=== PATIENT | female | born 1965 | race Caucasian/White ===

== ENCOUNTER 2019-02-14 12:46 | Emergency (ER) | payer MEDICARE | END 2019-02-14 15:00 | disposition short-term general hospital (02) | LOC: ED 12:46 ==

== ENCOUNTER 2023-08-10 23:51 | Observation (INO) | payer MEDICARE ==
[2023-08-11 00:23] LABS: VBG BASE EXCESS 2.1 (-2.0-2.0); VBG CARBOXYHEMOGLOBIN 2.3 % T HGB (0.0-6.9); VBG HCO3- 25.3 meq/L (22-28); VBG HEMOGLOBIN 13.3; VBG O2 SATURATION 43.6 (95-100); VBG POTASSIUM 5.2 (3.5-5.1); VBG pH 7.48 (7.32-7.42)
[2023-08-11] MEDS ORDERED: Sodium Chloride 0.9% 1000 ML 1,000 ML ONE ×2 (00:25→01:27)
[2023-08-11 00:29] LABS: Absolute Neutrophil Ct (ANC) 2.75 x10^3/uL (1.4-6.9); BASOPHIL % 1.1 % (0.0-0.4); Basophil (Absolute #) 0.05 x10^3/uL (0-0.4); Eosinophil % 0.4 % (0.00-5.0); Eosinophil (Absolute #) 0.02 x10^3/uL (0-0.5); Hematocrit 38.1 % (35-47); Hemoglobin 12.7 g/dL (12.0-16.0); IMMATURE GRAN # 0.02 x10^3u/L (0.00-0.03); IMMATURE GRAN % 0.4 % (0.00-0.4); Lymphocyte (Absolute #) 1.39 x10^3/uL (1.0-4.6); Mean Cell Volume 99.5 fL (78-100); Mean Corpuscular Hemoglobin 33.2 pg (26-32); Mean Corpuscular Hgb Concent. 33.3 g/dL (32-36); Mean Platelet Volume 11.5 fL (7.5-11.0); Monocyte (Absolute #) 0.25 x10^3/uL (0.0-1.3); Monocytes % 5.6 % (0.0-12.0); Neutrophil % 61.5 % (36.0-66.0); Platelet Count 128 x10^3/uL (150-450); Red Blood Count 3.83 x10^6/uL (4.1-5.4); Red Cell Distribution Width 12.6 % (11.5-14.0); White Blood Count 4.5 x10^3/uL (4.0-10.5)
[2023-08-11] MEDS: Sodium Chloride 0.9% 1000 ML 1,000 ML IV STA (00:35)
[2023-08-11 00:40] LABS: ALBUMIN 3.7 g/dL (3.5-5.0); ANION GAP 12.6 MEQ/L (5-15); BILIRUBIN,TOTAL 1.2 mg/dL (0.2-1.3); Calcium 8.3 mg/dL (8.4-10.2); Creatinine 1 1.69 mg/dL (0.52-1.04); EST GLOMERULAR FILTRATION RATE 35.5 ML/MIN; MAGNESIUM 1.7 mg/dL (1.6-2.3); Total Protein 7.3 g/dL (6.3-8.2)
--- NOTE | 2023-08-11 00:46 | ERPHSYRPT ---
- History of Present Illness Time Seen by Provider: 08/10/23 23:54 Source: patient, EMS Exam Limitations: no limitations Patient Subjective Stated Complaint: pt states that she has thought "for a while that I have a urinary infection brewing" and states that when she woke up 08/08/23 she started experiencing burning with urination, urinary frequency, and that her genitalia has been warm to touch. pt reports that approx 2215 she had a temp of 100.9 and that she took at 2230 2 tylenol arthritis tabs po. reports that she has an intermittent mild dry nonproductive cough for a few days and intermittent nausea without vomiting since 08/08/23 Triage Nursing Assessment: pt brought into room 4 via EMS stretcher and pt stook to pivot into ED cot with assist of 2 staff. pt is alert and oriented times three, is able to speak in complete sentences, is able to move all extremities, and is with resp even and unlabored. pt denies pain, nausea, vomiting, diarrhea, abd pain, cp, sob, lightheadedness, change in appetite, or other ill feelings. Physician History: 57 years old morbidly obese female with history of hypertension, hyperlipidemia, diabetes mellitus presented in the ER with 2 days history of increased urinary frequency, dysuria and sense of incomplete voiding and also having subjective feeling of fever and chills. Denies any flank or abdominal pain. No nausea or vomiting. Patient also report her blood sugar has been staying high as she has not been taking her medications regularly. Denies any chest pain palpitations or shortness of breath. Patient reports earlier she had a fever 100.9 and took some Tylenol and currently afebrile. Allergies/Adverse Reactions: lisinopril Allergy (Intermediate, Verified 08/10/23 23:56) Cough Penicillins Allergy (Intermediate, Verified 08/10/23 23:56) Rash Home Medications: Aripiprazole [Abilify] 0.5 tab PO HS 08/11/23 [History] Aspirin [Aspirin EC] 81 mg PO DAILY 08/11/23 [History] Atenolol 50 mg [Tenormin 50 mg] 50 mg PO DAILY 08/11/23 [History] Dulaglutide [Trulicity] 3 mg SQ WEEKLY 08/11/23 [History] Gabapentin [Neurontin ] 100 mg PO BID 08/11/23 [History] Insulin Degludec [Tresiba] 100 unit SQ DAILY 08/11/23 [History] Levothyroxine Sodium 200 mcg PO DAILY 08/11/23 [History] Losartan Potassium 25 mg PO DAILY 08/11/23 [History] Multivitamin 1 each PO DAILY 08/11/23 [History] Ropinirole HCl 0.5 mg [Requip 0.5 MG] 0.5 tab PO HS 08/11/23 [History] Simvastatin 20Mg [Zocor 20Mg] 20 mg PO QPM 08/11/23 [History] Venlafaxine HCl [Effexor Xr] 225 mg PO DAILY 08/11/23 [History] Zinc Gluconate [Zinc] 50 mg PO DAILY 08/11/23 [History] Hx Tetanus, Diphtheria Vaccination/Date Given: Yes Hx Influenza Vaccination/Date Given: Yes Hx Pneumococcal Vaccination/Date Given: Yes (2015) Immunizations Up to Date: Yes Travel Risk - International Travel Have you traveled outside of the country in past 3 weeks: No - Coronavirus Screening Symptoms: Cough: New Onset Close contact with a COVID-19 positive Pt in past 14-21 Days: No - Vaccine Status Have you recieved a Covid-19 vaccination: Yes [employer]: [employer] - Vaccination Dates Date of 2cond Vaccination (if applicable): unknown - Review of Systems Constitutional: No Symptoms Eyes: No Symptoms Ears, Nose, & Throat: No Symptoms Respiratory: No Symptoms Cardiac: No Symptoms Abdominal/Gastrointestinal: No Symptoms Genitourinary Symptoms: Dysuria, Frequency Musculoskeletal: No Symptoms Neurological: No Symptoms Endocrine: No Symptoms Hematologic/Lymphatic: No Symptoms - Past Medical History Pertinent Past Medical History: Yes Neurological History: Peripheral Neuropathy ENT History: No Pertinent History Cardiac History: High Cholesterol, Hypertension Respiratory History: No Pertinent History Endocrine Medical History: Diabetes Type II, Hypothyroidism, Liver Disease Musculoskeletal History: Arthritis GI Medical History: Diverticulosis History: No Pertinent History Psycho-Social History: Depression Female Reproductive Disorders: Endometriosis - Past Surgical History Past Surgical History: Yes Neuro Surgical History: No Pertinent History Cardiac: No Pertinent History Respiratory: No Pertinent History Gastrointestinal: No Pertinent History Genitourinary: No Pertinent History Musculoskeletal: Orthopedic Surgery Female Surgical History: Hysterectomy Other Surgical History: ganglion cyst removal right wrist - Social History Smoking Status: Never smoker Exposure to second hand smoke: No Drug Use: none Patient Lives Alone: No - Nursing Vital Signs Nursing Vital Signs: Initial Vital Signs Pulse Rate 98 H 08/10/23 23:57 Respiratory Rate 20 08/10/23 23:57 Blood Pressure 118/70 08/10/23 23:57 O2 Sat by Pulse Oximetry 98 08/10/23 23:57 Pain Scale Pain Intensity 0 - Physical Exam General Appearance: no apparent distress, alert Eye Exam: PERRL/EOMI Ears, Nose, Throat Exam: normal ENT inspection Neck Exam: normal inspection, full range of motion Respiratory Exam: normal breath sounds, lungs clear Cardiovascular Exam: regular rate/rhythm, normal heart sounds Gastrointestinal/Abdomen Exam: soft, normal bowel sounds, No tenderness Back Exam: normal inspection, normal range of motion Extremity Exam: normal inspection, normal range of motion Neurologic Exam: alert, oriented x 3, cooperative Skin Exam: normal color SpO2 Interpretation: normal SpO2: 95 O2 Delivery: Room Air Ordered Tests: Active Orders 24 hr Category Date Time Status IV Insertion STAT Care 08/11/23 00:09 Active CBC W DIFF Stat Lab 08/11/23 00:24 Completed CMP Stat Lab 08/11/23 00:24 Completed CULTURE,URINE Stat Lab 08/11/23 02:21 Received Lactic Acid Stat Lab 08/11/23 02:24 Completed Lactic Acid Urgent Lab 08/11/23 00:18 Completed MAGNESIUM Stat Lab 08/11/23 00:24 Completed POCT GLUCOSE Stat Lab 08/10/23 23:59 Received POCT GLUCOSE Stat Lab 08/11/23 00:00 Completed POCT GLUCOSE Stat Lab 08/11/23 01:38 Completed POCT GLUCOSE Stat Lab 08/11/23 02:46 Completed UA W/RFX UR CULTURE Stat Lab 08/11/23 02:21 Completed VENOUS BLOOD GAS Urgent Lab 08/11/23 00:18 Completed Transfer Order Routine Transfer 08/11/23 Ordered Medication Summary Generic Name Dose Route Start Last Admin Trade Name Freq PRN Reason Stop Dose Admin Sodium Chloride 1,000 mls @ 150 mls/hr 08/11/23 01:30 08/11/23 01:37 Sodium Chloride 0.9% 1000 Ml IV 09/10/23 01:29 150 mls/hr .[id number] MASON Administration Ceftriaxone Sodium/Dextrose 2 g in 50 mls @ 100 mls/hr 08/11/23 02:49 08/11/23 03:04 Rocephin 2 Gm-D5w 50ml Bag IV 08/11/23 03:18 100 mls/hr STAT STA 100 mls/hr Administration Discontinued Medications Generic Name Dose Route Start Last Admin Trade Name Wiliq PRN Reason Stop Dose Admin Sodium Chloride 1,000 mls @ 999 mls/hr 08/11/23 00:09 08/11/23 01:37 Sodium Chloride 0.9% 1000 Ml IV 08/11/23 01:09 Infused .Q1H1M STA Infusion Sodium Chloride Confirm 08/11/23 00:25 Sodium Chloride 0.9% 1000 Ml Administered 08/11/23 00:26 Dose 1,000 mls @ ud .ROUTE .[facility] ONE Ceftriaxone Sodium/Dextrose Confirm 08/11/23 02:51 Rocephin 2 Gm-D5w 50ml Bag Administered 08/11/23 02:52 Dose 2 g in 50 mls @ ud IV .[facility] ONE Insulin Human Regular 10 unit 08/11/23 01:43 08/11/23 01:47 Insulin Regular, Human 1 Unit SQ 08/11/23 01:44 10 unit STAT ONE Administration Insulin Human Regular Confirm 08/11/23 01:46 Insulin Regular, Human 1 Unit Administered 08/11/23 01:47 Dose 10 unit .ROUTE .[facility] ONE Insulin Human Regular 5 unit 08/11/23 02:57 08/11/23 03:03 Insulin Regular, Human 1 Unit IV 08/11/23 02:58 5 unit STAT ONE Administration Insulin Human Regular Confirm 08/11/23 03:00 Insulin Regular, Human 1 Unit Administered 08/11/23 03:01 Dose 5 unit .ROUTE .[facility] ONE Lab/Rad Data: Laboratory Result Diagrams 08/11/23 00:24 08/11/23 00:24 Laboratory Results 08/11/23 08/11/23 08/11/23 Range/Units 02:46 02:24 02:21 WBC (4.0-10.5) x10^3/uL RBC (4.1-5.4) x10^6/uL Hgb (12.0-16.0) g/dL Hct (35-47) % MCV (78-100) fL MCH (26-32) pg MCHC (32-36) g/dL RDW (11.5-14.0) % Plt Count (150-450) x10^3/uL MPV (7.5-11.0) fL Gran % (36.0-66.0) % Immature Gran % (Auto) (0.00-0.4) % Nucleat RBC Rel Count (0.00-0.1) % Eos # (Auto) (0-0.5) x10^3/uL Immature Gran # (Auto) (0.00-0.03) x10^3u/L Absolute Lymphs (auto) (1.0-4.6) x10^3/uL Absolute Monos (auto) (0.0-1.3) x10^3/uL Absolute Nucleated RBC (0.00-0.01) x10^3u/L Lymphocytes % (24.0-44.0) % Monocytes % (0.0-12.0) % Eosinophils % (0.00-5.0) % Basophils % (0.0-0.4) % Absolute Granulocytes (1.4-6.9) x10^3/uL Basophils # (0-0.4) x10^3/uL pO2/FiO2 Ratio % VBG pH (7.32-7.42) VBG pCO2 at Pat Temp (42-55) mm/Hg VBG pO2 at Pat Temp (25-40) mm/Hg VBG HCO3 (22-28) meq/L VBG O2 Sat (Lis) (95-100) VBG Base Excess (-2.0-2.0) VBG Hemoglobin VBG Carboxyhemoglobin (0.0-6.9) % T HGB POC Potassium (3.5-5.1) Sodium (137-145) mmol/L Potassium (3.5-5.1) mmol/L Chloride (98-107) mmol/L Carbon Dioxide (22-30) mmol/L Anion Gap (5-15) MEQ/L BUN (7-17) mg/dL Creatinine (0.52-1.04) mg/dL Estimated GFR ML/MIN Glucose (74-106) mg/dL POC Glucometer 455 H (74 to 106) mg/dL Lactic Acid 1.5 (0.4-2.0) Calcium (8.4-10.2) mg/dL Magnesium (1.6-2.3) mg/dL Total Bilirubin (0.2-1.3) mg/dL AST (14-36) U/L ALT (0-35) U/L Alkaline Phosphatase (38-126) U/L Serum Total Protein (6.3-8.2) g/dL Albumin (3.5-5.0) g/dL Urine Color Dark Yellow A (Yellow) Urine Appearance Cloudy A (Clear) Urine pH 5.0 (4.6-8.0) Ur Specific [place] 1.025 (1.005-1.030) Urine Protein 100 A (Negative) Urine Glucose (UA) >=1000 A (Negative) mg/dL Urine Ketones Trace A (Negative) Urine Blood Small A (Negative) Urine Nitrite Positive A (Negative) Urine Bilirubin Negative (Negative) Urine Urobilinogen 1.0 A (0.2) mg/dL Ur Leukocyte Esterase Moderate A (Negative) U Hyaline Cast (Auto) 6-10 A (0-2) /LPF Urine Microscopic RBC 0-2 (0-5) /HPF Urine Microscopic WBC 21-50 A (0-5) /HPF Ur Epithelial Cells Rare (None Seen) /HPF Urine Bacteria Many A (None Seen) /HPF Urine Culture Reflexed YES (NO) 08/11/23 08/11/23 08/11/23 Range/Units 01:38 00:24 00:24 WBC 4.5 (4.0-10.5) x10^3/uL RBC 3.83 L (4.1-5.4) x10^6/uL Hgb 12.7 (12.0-16.0) g/dL Hct 38.1 (35-47) % MCV 99.5 (78-100) fL MCH 33.2 H (26-32) pg MCHC 33.3 (32-36) g/dL RDW 12.6 (11.5-14.0) % Plt Count 128 L (150-450) x10^3/uL MPV 11.5 H (7.5-11.0) fL Gran % 61.5 (36.0-66.0) % Immature Gran % (Auto) 0.4 (0.00-0.4) % Nucleat RBC Rel Count 0.0 (0.00-0.1) % Eos # (Auto) 0.02 (0-0.5) x10^3/uL Immature Gran # (Auto) 0.02 (0.00-0.03) x10^3u/L Absolute Lymphs (auto) 1.39 (1.0-4.6) x10^3/uL Absolute Monos (auto) 0.25 (0.0-1.3) x10^3/uL Absolute Nucleated RBC 0.00 (0.00-0.01) x10^3u/L Lymphocytes % 31.0 (24.0-44.0) % Monocytes % 5.6 (0.0-12.0) % Eosinophils % 0.4 (0.00-5.0) % Basophils % 1.1 (0.0-0.4) % Absolute Granulocytes 2.75 (1.4-6.9) x10^3/uL Basophils # 0.05 (0-0.4) x10^3/uL pO2/FiO2 Ratio % VBG pH (7.32-7.42) VBG pCO2 at Pat Temp (42-55) mm/Hg VBG pO2 at Pat Temp (25-40) mm/Hg VBG HCO3 (22-28) meq/L VBG O2 Sat (Lis) (95-100) VBG Base Excess (-2.0-2.0) VBG Hemoglobin VBG Carboxyhemoglobin (0.0-6.9) % T HGB POC Potassium (3.5-5.1) Sodium 123 L (137-145) mmol/L Potassium 5.0 (3.5-5.1) mmol/L Chloride 92 L (98-107) mmol/L Carbon Dioxide 23 (22-30) mmol/L Anion Gap 12.6 (5-15) MEQ/L BUN 39 H (7-17) mg/dL Creatinine 1.69 H (0.52-1.04) mg/dL Estimated GFR 35.5 ML/MIN Glucose 467 H (74-106) mg/dL POC Glucometer 440 H (74 to 106) mg/dL Lactic Acid (0.4-2.0) Calcium 8.3 L (8.4-10.2) mg/dL Magnesium 1.7 (1.6-2.3) mg/dL Total Bilirubin 1.20 (0.2-1.3) mg/dL AST 101 H (14-36) U/L ALT 122 H (0-35) U/L Alkaline Phosphatase 103 (38-126) U/L Serum Total Protein 7.3 (6.3-8.2) g/dL Albumin 3.7 (3.5-5.0) g/dL Urine Color (Yellow) Urine Appearance (Clear) Urine pH (4.6-8.0) Ur Specific [place] (1.005-1.030) Urine Protein (Negative) Urine Glucose (UA) (Negative) mg/dL Urine Ketones (Negative) Urine Blood (Negative) Urine Nitrite (Negative) Urine Bilirubin (Negative) Urine Urobilinogen (0.2) mg/dL Ur Leukocyte Esterase (Negative) U Hyaline Cast (Auto) (0-2) /LPF Urine Microscopic RBC (0-5) /HPF Urine Microscopic WBC (0-5) /HPF Ur Epithelial Cells (None Seen) /HPF Urine Bacteria (None Seen) /HPF Urine Culture Reflexed (NO) 08/11/23 08/11/23 08/11/23 Range/Units 00:18 00:18 00:00 WBC (4.0-10.5) x10^3/uL RBC (4.1-5.4) x10^6/uL Hgb (12.0-16.0) g/dL Hct (35-47) % MCV (78-100) fL MCH (26-32) pg MCHC (32-36) g/dL RDW (11.5-14.0) % Plt Count (150-450) x10^3/uL MPV (7.5-11.0) fL Gran % (36.0-66.0) % Immature Gran % (Auto) (0.00-0.4) % Nucleat RBC Rel Count (0.00-0.1) % Eos # (Auto) (0-0.5) x10^3/uL Immature Gran # (Auto) (0.00-0.03) x10^3u/L Absolute Lymphs (auto) (1.0-4.6) x10^3/uL Absolute Monos (auto) (0.0-1.3) x10^3/uL Absolute Nucleated RBC (0.00-0.01) x10^3u/L Lymphocytes % (24.0-44.0) % Monocytes % (0.0-12.0) % Eosinophils % (0.00-5.0) % Basophils % (0.0-0.4) % Absolute Granulocytes (1.4-6.9) x10^3/uL Basophils # (0-0.4) x10^3/uL pO2/FiO2 Ratio 21.0 % VBG pH 7.48 H (7.32-7.42) VBG pCO2 at Pat Temp 34 L (42-55) mm/Hg VBG pO2 at Pat Temp 28 (25-40) mm/Hg VBG HCO3 25.3 (22-28) meq/L VBG O2 Sat (Lis) 43.6 L (95-100) VBG Base Excess 2.1 H (-2.0-2.0) VBG Hemoglobin 13.3 VBG Carboxyhemoglobin 2.3 (0.0-6.9) % T HGB POC Potassium 5.2 H (3.5-5.1) Sodium (137-145) mmol/L Potassium (3.5-5.1) mmol/L Chloride (98-107) mmol/L Carbon Dioxide (22-30) mmol/L Anion Gap (5-15) MEQ/L BUN (7-17) mg/dL Creatinine (0.52-1.04) mg/dL Estimated GFR ML/MIN Glucose (74-106) mg/dL POC Glucometer 434 H (74 to 106) mg/dL Lactic Acid 2.9 H (0.4-2.0) Calcium (8.4-10.2) mg/dL Magnesium (1.6-2.3) mg/dL Total Bilirubin (0.2-1.3) mg/dL AST (14-36) U/L ALT (0-35) U/L Alkaline Phosphatase (38-126) U/L Serum Total Protein (6.3-8.2) g/dL Albumin (3.5-5.0) g/dL Urine Color (Yellow) Urine Appearance (Clear) Urine pH (4.6-8.0) Ur Specific [place] (1.005-1.030) Urine Protein (Negative) Urine Glucose (UA) (Negative) mg/dL Urine Ketones (Negative) Urine Blood (Negative) Urine Nitrite (Negative) Urine Bilirubin (Negative) Urine Urobilinogen (0.2) mg/dL Ur Leukocyte Esterase (Negative) U Hyaline Cast (Auto) (0-2) /LPF Urine Microscopic RBC (0-5) /HPF Urine Microscopic WBC (0-5) /HPF Ur Epithelial Cells (None Seen) /HPF Urine Bacteria (None Seen) /HPF Urine Culture Reflexed (NO) - Progress Progress: unchanged Progress Note: 08/11/23 03:14 D/W Dr. Ellington Discussed with DrMonster: Other ( [id number]) Counseled pt/family regarding: lab results, diagnosis, need for follow-up Medical Desision Making - Independent Historian Additional History obtained from: [employer]/EMT - Discussion of managment Care discussed with:: hospitalist Reviewed:: Test results Agreed on:: Treatment plan, place in obs Will see patient: in hospital - Diagnostic Testing Diagnostic test were ordered, analyzed, and reviewed by me: Yes - Risk of complications The pt has a high risk of morbidity or mortality based on: Decision regarding hospitilization or escalation of hosp level of care - Departure Departure Disposition: Observation Clinical Impression: Hyperglycemia, Acute UTI (urinary tract infection) Condition: Stable Critical Care Time: No Referrals: JUWAN POLANCO MD [Primary Care Provider] - Follow up/PCP as directed
[2023-08-11] MEDS: Sodium Chloride 0.9% 1000 ML 1,000 ML IV SCH ×2 (01:37→10:54)
[2023-08-11] MEDS ORDERED: HUMULIN R ONE ×2 (01:46→03:00)
[2023-08-11] MEDS: HUMULIN R SQ ONE (01:47)
[2023-08-11 02:33] LABS: Appearance Cloudy (Clear); Bilirubin Negative (Negative); Blood Small (Negative); Glucose, Urine >=1000 mg/dL (Negative); Ketones Trace (Negative); Leukocyte Esterase Moderate (Negative); Nitrite Positive (Negative); Protein,Urine Dip 100 (Negative); Specific Gravity 1.025 (1.005-1.030)
[2023-08-11 02:35] LABS: Bacteria Many /HPF (None Seen); Epithelial Cells Rare /HPF (None Seen); RBC 0-2 /HPF (0-5); WBC 21-50 /HPF (0-5)
[2023-08-11 02:37] LABS: ADD URINE CULTURE? YES (NO)
[2023-08-11] MEDS ORDERED: ROCEPHIN 2 Gm-D5w 50ML BAG** 2 G/50 ML IVPB IV ONE (02:51)
[2023-08-11] MEDS: HUMULIN R IV ONE (03:03)
[2023-08-11] MEDS: ROCEPHIN 2 Gm-D5w 50ML BAG** 2 G/50 ML IVPB IV STA (03:04)
[2023-08-11] MEDS ORDERED: HUMULIN R SQ PRN (06:13)
[2023-08-11] MEDS ORDERED: Docusate Sodium 100 MG PO PRN (06:13)
[2023-08-11] MEDS ORDERED: TYLENOL 325 MG PO PRN (06:13)
--- NOTE | 2023-08-11 06:26 | PCM.HP ---
History of Present Illness - Chief Complaint Chief Complaint: Hyperglycemia/UTI Date: 08/11/23 History of Present Illness: Ms. Quinteros is a 57 year old female with a past medical history significant for hypertension, diabetes, hyperlipidemia and morbid obesity who presents to the hospital with complaints of urinary frequency, burning and pelvic pain since , though she believes this has been building up for some time. She has not been taking her Tresiba for her sugars and it was over 400 upon arrival. She was diagnosed with a UTI and started on antibiotics. Her initial labs were notable for a creatinine of 1.7. No NSAIDs or contrast studies recently. Does t adiel Losartan and admits she has not been eating/drinking as well as usual. She has been recommended for admission. She is resting in bed, awake/alert, having some discomfort but other appears hemodynamically stable and in no distress. - Review of Systems Constitutional: Fever, Chills Eyes: No Symptoms Ears, Nose, & Throat: No Symptoms Respiratory: No Cough, No Orthopnea, No Short Of Breath Cardiac: No Chest Pain, No Edema, No Palpitations Abdominal/Gastrointestinal: No Abdominal Pain, No Nausea, No Vomiting, No Diarrhea Genitourinary Symptoms: Dysuria, Frequency, Vaginal Itching Musculoskeletal: No Symptoms Skin: No Cellulitis, No Rash Neurological: Headache, No Dizziness, No Focal Weakness Psychological: No Suicidal Ideations, No Hallucinations Endocrine: Polyuria, Polydipsia Hematologic/Lymphatic: No Easy Bleeding Medications & Allergies Home Medications: Home Medication List Aripiprazole [Abilify] 0.5 tab PO HS 08/11/23 [History Confirmed 08/11/23] Aspirin [Aspirin EC] 81 mg PO DAILY 08/11/23 [History Confirmed 08/11/23] Atenolol 50 mg [Tenormin 50 mg] 50 mg PO DAILY 08/11/23 [History Confirmed 08/11/23] Dulaglutide [Trulicity] 3 mg SQ WEEKLY 08/11/23 [History Confirmed 08/11/23] Gabapentin [Neurontin ] 100 mg PO BID 08/11/23 [History Confirmed 08/11/23] Insulin Degludec [Tresiba] 80 unit SQ DAILY 08/11/23 [History Confirmed 08/11/23] Levothyroxine Sodium 200 mcg PO DAILY 08/11/23 [History Confirmed 08/11/23] Losartan Potassium 25 mg PO DAILY 08/11/23 [History Confirmed 08/11/23] Multivitamin 1 each PO DAILY 08/11/23 [History Confirmed 08/11/23] Ropinirole HCl 0.5 mg [Requip 0.5 MG] 0.5 mg PO HS 08/11/23 [History Confirmed 08/11/23] Simvastatin 20Mg [Zocor 20Mg] 20 mg PO QPM 08/11/23 [History Confirmed 08/11/23] Venlafaxine HCl [Effexor Xr] 225 mg PO DAILY 08/11/23 [History Confirmed 08/11/23] Zinc Gluconate [Zinc] 50 mg PO DAILY 08/11/23 [History Confirmed 08/11/23] Allergies/Adverse Reactions: Allergies Allergy/AdvReac Type Severity Reaction Status Date / Time lisinopril Allergy Intermediate Cough Verified 08/10/23 23:56 Penicillins Allergy Intermediate Rash Verified 08/10/23 23:56 - Past Medical History Past Medical History: Yes Neurological History: Migraines, Peripheral Neuropathy ENT History: No Pertinent History, Cataracts Cardiac History: High Cholesterol, Hypertension, Peripheral Vascular Disease Respiratory History: No Pertinent History Endocrine Medical History: Diabetes Type II, Hypothyroidism, Liver Disease Musculoskelatal History: Arthritis GI Medical History: Diverticulosis History: Renal Disease Pyscho-Social History: Depression Reproductive Disorders: Endometriosis - Past Surgical History Past Surgical History: Yes Neuro Surgical History: No Pertinent History Cardiac History: No Pertinent History Respiratory Surgery: No Pertinent History GI Surgical History: No Pertinent History Genitourinary Surgical Hx: No Pertinent History Musculskeletal Surgical Hx: Orthopedic Surgery Female Surgical History: Hysterectomy Other Surgical History: ganglion cyst removal right wrist - Social History Smoking Status: Never smoker Exposure to second hand smoke: No Alcohol: None Drug Use: none - Physical Exam Vital Signs: Vital Signs - 24 hr Temp Pulse Resp BP BP Pulse Ox 08/11/23 04:00 98 H 08/11/23 03:35 97.1 F 100 H 24 149/65 97 08/11/23 03:15 95 08/11/23 03:00 99 H 20 153/75 98 08/11/23 02:31 102 H 22 152/68 97 08/11/23 02:21 99 H 18 149/91 98 08/11/23 01:31 101 H 20 163/93 96 08/11/23 01:01 90 20 122/79 98 08/11/23 00:31 99 H 20 118/82 95 08/11/23 00:03 92 H 18 93/73 95 08/10/23 23:58 97.1 F 119 H 28 H 118/70 98 08/10/23 23:57 98 H 20 118/70 98 General Appearance: no apparent distress Neurologic Exam: alert Ears, Nose, Throat Exam: dry mucous membranes Neck Exam: supple Respiratory Exam: No respiratory distress, No accessory muscle use, No rhonchi, No wheezing Cardiovascular Exam: regular rate/rhythm Gastrointestinal/Abdomen Exam: soft Extremity Exam: pedal edema, No tenderness Skin Exam: warm, dry Wound Assessment: Skin/Wound Assessment Wound/Incision Assessment Start: 08/11/23 04:27 Text: Status: Active Freq: Q6H Protocol: Document 08/11/23 04:27 AB (Rec: 08/11/23 04:58 AB [id number]) Wound/Incision Assessment Upper Buttock Wound Assessment Admission Comment Multiple scabs and sores photos in chart Wound Photo Photo Taken Yes Results - Labs Lab/Micro Results: Lab Results-Last 24 Hours 08/11/23 08/11/23 08/11/23 Range/Units 00:00 00:18 00:18 WBC (4.0-10.5) x10^3/uL RBC (4.1-5.4) x10^6/uL Hgb (12.0-16.0) g/dL Hct (35-47) % MCV (78-100) fL MCH (26-32) pg MCHC (32-36) g/dL RDW (11.5-14.0) % Plt Count (150-450) x10^3/uL MPV (7.5-11.0) fL Gran % (36.0-66.0) % Immature Gran % (Auto) (0.00-0.4) % Nucleat RBC Rel Count (0.00-0.1) % Eos # (Auto) (0-0.5) x10^3/uL Immature Gran # (Auto) (0.00-0.03) x10^3u/L Absolute Lymphs (auto) (1.0-4.6) x10^3/uL Absolute Monos (auto) (0.0-1.3) x10^3/uL Absolute Nucleated RBC (0.00-0.01) x10^3u/L Lymphocytes % (24.0-44.0) % Monocytes % (0.0-12.0) % Eosinophils % (0.00-5.0) % Basophils % (0.0-0.4) % Absolute Granulocytes (1.4-6.9) x10^3/uL Basophils # (0-0.4) x10^3/uL pO2/FiO2 Ratio 21.0 % VBG pH 7.48 H (7.32-7.42) VBG pCO2 at Pat Temp 34 L (42-55) mm/Hg VBG pO2 at Pat Temp 28 (25-40) mm/Hg VBG HCO3 25.3 (22-28) meq/L VBG O2 Sat (Lis) 43.6 L (95-100) VBG Base Excess 2.1 H (-2.0-2.0) VBG Hemoglobin 13.3 VBG Carboxyhemoglobin 2.3 (0.0-6.9) % T HGB POC Potassium 5.2 H (3.5-5.1) Sodium (137-145) mmol/L Potassium (3.5-5.1) mmol/L Chloride (98-107) mmol/L Carbon Dioxide (22-30) mmol/L Anion Gap (5-15) MEQ/L BUN (7-17) mg/dL Creatinine (0.52-1.04) mg/dL Estimated GFR ML/MIN Glucose (74-106) mg/dL POC Glucometer 434 H (74 to 106) mg/dL Lactic Acid 2.9 H (0.4-2.0) Calcium (8.4-10.2) mg/dL Magnesium (1.6-2.3) mg/dL Total Bilirubin (0.2-1.3) mg/dL AST (14-36) U/L ALT (0-35) U/L Alkaline Phosphatase (38-126) U/L Serum Total Protein (6.3-8.2) g/dL Albumin (3.5-5.0) g/dL Urine Color (Yellow) Urine Appearance (Clear) Urine pH (4.6-8.0) Ur Specific [place] (1.005-1.030) Urine Protein (Negative) Urine Glucose (UA) (Negative) mg/dL Urine Ketones (Negative) Urine Blood (Negative) Urine Nitrite (Negative) Urine Bilirubin (Negative) Urine Urobilinogen (0.2) mg/dL Ur Leukocyte Esterase (Negative) U Hyaline Cast (Auto) (0-2) /LPF Urine Microscopic RBC (0-5) /HPF Urine Microscopic WBC (0-5) /HPF Ur Epithelial Cells (None Seen) /HPF Urine Bacteria (None Seen) /HPF Urine Culture Reflexed (NO) 08/11/23 08/11/23 08/11/23 Range/Units 00:24 00:24 01:38 WBC 4.5 (4.0-10.5) x10^3/uL RBC 3.83 L (4.1-5.4) x10^6/uL Hgb 12.7 (12.0-16.0) g/dL Hct 38.1 (35-47) % MCV 99.5 (78-100) fL MCH 33.2 H (26-32) pg MCHC 33.3 (32-36) g/dL RDW 12.6 (11.5-14.0) % Plt Count 128 L (150-450) x10^3/uL MPV 11.5 H (7.5-11.0) fL Gran % 61.5 (36.0-66.0) % Immature Gran % (Auto) 0.4 (0.00-0.4) % Nucleat RBC Rel Count 0.0 (0.00-0.1) % Eos # (Auto) 0.02 (0-0.5) x10^3/uL Immature Gran # (Auto) 0.02 (0.00-0.03) x10^3u/L Absolute Lymphs (auto) 1.39 (1.0-4.6) x10^3/uL Absolute Monos (auto) 0.25 (0.0-1.3) x10^3/uL Absolute Nucleated RBC 0.00 (0.00-0.01) x10^3u/L Lymphocytes % 31.0 (24.0-44.0) % Monocytes % 5.6 (0.0-12.0) % Eosinophils % 0.4 (0.00-5.0) % Basophils % 1.1 (0.0-0.4) % Absolute Granulocytes 2.75 (1.4-6.9) x10^3/uL Basophils # 0.05 (0-0.4) x10^3/uL pO2/FiO2 Ratio % VBG pH (7.32-7.42) VBG pCO2 at Pat Temp (42-55) mm/Hg VBG pO2 at Pat Temp (25-40) mm/Hg VBG HCO3 (22-28) meq/L VBG O2 Sat (Lis) (95-100) VBG Base Excess (-2.0-2.0) VBG Hemoglobin VBG Carboxyhemoglobin (0.0-6.9) % T HGB POC Potassium (3.5-5.1) Sodium 123 L (137-145) mmol/L Potassium 5.0 (3.5-5.1) mmol/L Chloride 92 L (98-107) mmol/L Carbon Dioxide 23 (22-30) mmol/L Anion Gap 12.6 (5-15) MEQ/L BUN 39 H (7-17) mg/dL Creatinine 1.69 H (0.52-1.04) mg/dL Estimated GFR 35.5 ML/MIN Glucose 467 H (74-106) mg/dL POC Glucometer 440 H (74 to 106) mg/dL Lactic Acid (0.4-2.0) Calcium 8.3 L (8.4-10.2) mg/dL Magnesium 1.7 (1.6-2.3) mg/dL Total Bilirubin 1.20 (0.2-1.3) mg/dL AST 101 H (14-36) U/L ALT 122 H (0-35) U/L Alkaline Phosphatase 103 (38-126) U/L Serum Total Protein 7.3 (6.3-8.2) g/dL Albumin 3.7 (3.5-5.0) g/dL Urine Color (Yellow) Urine Appearance (Clear) Urine pH (4.6-8.0) Ur Specific [place] (1.005-1.030) Urine Protein (Negative) Urine Glucose (UA) (Negative) mg/dL Urine Ketones (Negative) Urine Blood (Negative) Urine Nitrite (Negative) Urine Bilirubin (Negative) Urine Urobilinogen (0.2) mg/dL Ur Leukocyte Esterase (Negative) U Hyaline Cast (Auto) (0-2) /LPF Urine Microscopic RBC (0-5) /HPF Urine Microscopic WBC (0-5) /HPF Ur Epithelial Cells (None Seen) /HPF Urine Bacteria (None Seen) /HPF Urine Culture Reflexed (NO) 08/11/23 08/11/23 08/11/23 Range/Units 02:21 02:24 02:46 WBC (4.0-10.5) x10^3/uL RBC (4.1-5.4) x10^6/uL Hgb (12.0-16.0) g/dL Hct (35-47) % MCV (78-100) fL MCH (26-32) pg MCHC (32-36) g/dL RDW (11.5-14.0) % Plt Count (150-450) x10^3/uL MPV (7.5-11.0) fL Gran % (36.0-66.0) % Immature Gran % (Auto) (0.00-0.4) % Nucleat RBC Rel Count (0.00-0.1) % Eos # (Auto) (0-0.5) x10^3/uL Immature Gran # (Auto) (0.00-0.03) x10^3u/L Absolute Lymphs (auto) (1.0-4.6) x10^3/uL Absolute Monos (auto) (0.0-1.3) x10^3/uL Absolute Nucleated RBC (0.00-0.01) x10^3u/L Lymphocytes % (24.0-44.0) % Monocytes % (0.0-12.0) % Eosinophils % (0.00-5.0) % Basophils % (0.0-0.4) % Absolute Granulocytes (1.4-6.9) x10^3/uL Basophils # (0-0.4) x10^3/uL pO2/FiO2 Ratio % VBG pH (7.32-7.42) VBG pCO2 at Pat Temp (42-55) mm/Hg VBG pO2 at Pat Temp (25-40) mm/Hg VBG HCO3 (22-28) meq/L VBG O2 Sat (Lis) (95-100) VBG Base Excess (-2.0-2.0) VBG Hemoglobin VBG Carboxyhemoglobin (0.0-6.9) % T HGB POC Potassium (3.5-5.1) Sodium (137-145) mmol/L Potassium (3.5-5.1) mmol/L Chloride (98-107) mmol/L Carbon Dioxide (22-30) mmol/L Anion Gap (5-15) MEQ/L BUN (7-17) mg/dL Creatinine (0.52-1.04) mg/dL Estimated GFR ML/MIN Glucose (74-106) mg/dL POC Glucometer 455 H (74 to 106) mg/dL Lactic Acid 1.5 (0.4-2.0) Calcium (8.4-10.2) mg/dL Magnesium (1.6-2.3) mg/dL Total Bilirubin (0.2-1.3) mg/dL AST (14-36) U/L ALT (0-35) U/L Alkaline Phosphatase (38-126) U/L Serum Total Protein (6.3-8.2) g/dL Albumin (3.5-5.0) g/dL Urine Color Dark Yellow A (Yellow) Urine Appearance Cloudy A (Clear) Urine pH 5.0 (4.6-8.0) Ur Specific [place] 1.025 (1.005-1.030) Urine Protein 100 A (Negative) Urine Glucose (UA) >=1000 A (Negative) mg/dL Urine Ketones Trace A (Negative) Urine Blood Small A (Negative) Urine Nitrite Positive A (Negative) Urine Bilirubin Negative (Negative) Urine Urobilinogen 1.0 A (0.2) mg/dL Ur Leukocyte Esterase Moderate A (Negative) U Hyaline Cast (Auto) 6-10 A (0-2) /LPF Urine Microscopic RBC 0-2 (0-5) /HPF Urine Microscopic WBC 21-50 A (0-5) /HPF Ur Epithelial Cells Rare (None Seen) /HPF Urine Bacteria Many A (None Seen) /HPF Urine Culture Reflexed YES (NO) 08/11/23 Range/Units 04:30 WBC (4.0-10.5) x10^3/uL RBC (4.1-5.4) x10^6/uL Hgb (12.0-16.0) g/dL Hct (35-47) % MCV (78-100) fL MCH (26-32) pg MCHC (32-36) g/dL RDW (11.5-14.0) % Plt Count (150-450) x10^3/uL MPV (7.5-11.0) fL Gran % (36.0-66.0) % Immature Gran % (Auto) (0.00-0.4) % Nucleat RBC Rel Count (0.00-0.1) % Eos # (Auto) (0-0.5) x10^3/uL Immature Gran # (Auto) (0.00-0.03) x10^3u/L Absolute Lymphs (auto) (1.0-4.6) x10^3/uL Absolute Monos (auto) (0.0-1.3) x10^3/uL Absolute Nucleated RBC (0.00-0.01) x10^3u/L Lymphocytes % (24.0-44.0) % Monocytes % (0.0-12.0) % Eosinophils % (0.00-5.0) % Basophils % (0.0-0.4) % Absolute Granulocytes (1.4-6.9) x10^3/uL Basophils # (0-0.4) x10^3/uL pO2/FiO2 Ratio % VBG pH (7.32-7.42) VBG pCO2 at Pat Temp (42-55) mm/Hg VBG pO2 at Pat Temp (25-40) mm/Hg VBG HCO3 (22-28) meq/L VBG O2 Sat (Lis) (95-100) VBG Base Excess (-2.0-2.0) VBG Hemoglobin VBG Carboxyhemoglobin (0.0-6.9) % T HGB POC Potassium (3.5-5.1) Sodium (137-145) mmol/L Potassium (3.5-5.1) mmol/L Chloride (98-107) mmol/L Carbon Dioxide (22-30) mmol/L Anion Gap (5-15) MEQ/L BUN (7-17) mg/dL Creatinine (0.52-1.04) mg/dL Estimated GFR ML/MIN Glucose (74-106) mg/dL POC Glucometer 430 H (74 to 106) mg/dL Lactic Acid (0.4-2.0) Calcium (8.4-10.2) mg/dL Magnesium (1.6-2.3) mg/dL Total Bilirubin (0.2-1.3) mg/dL AST (14-36) U/L ALT (0-35) U/L Alkaline Phosphatase (38-126) U/L Serum Total Protein (6.3-8.2) g/dL Albumin (3.5-5.0) g/dL Urine Color (Yellow) Urine Appearance (Clear) Urine pH (4.6-8.0) Ur Specific [place] (1.005-1.030) Urine Protein (Negative) Urine Glucose (UA) (Negative) mg/dL Urine Ketones (Negative) Urine Blood (Negative) Urine Nitrite (Negative) Urine Bilirubin (Negative) Urine Urobilinogen (0.2) mg/dL Ur Leukocyte Esterase (Negative) U Hyaline Cast (Auto) (0-2) /LPF Urine Microscopic RBC (0-5) /HPF Urine Microscopic WBC (0-5) /HPF Ur Epithelial Cells (None Seen) /HPF Urine Bacteria (None Seen) /HPF Urine Culture Reflexed (NO) Assessment/Plan (1) Acute kidney injury Current Visit: Yes Status: Acute Assessment & Plan: Likely from prerenal azotemia/UTI in setting of ARB - creatinine elevated at 1.7 1. NS IVFs 2. Will hold ARB 3. Follow I/Os 4. Watch creatinine closely Code(s): N17.9 - ACUTE KIDNEY FAILURE, UNSPECIFIED (2) Chronic kidney disease due to diabetes mellitus Current Visit: Yes Status: Acute Assessment & Plan: Sugars under poor control but no sign of DKA 1. Will start Lantus 50u daily 2. Insulin sliding scale 3. Diabetic diet 4. FSBS qAC/HS Code(s): E11.22 - TYPE 2 DIABETES MELLITUS W DIABETIC CHRONIC KIDNEY DISEASE (3) Hypertensive chronic kidney disease with stage 1 through stage 4 chronic kidney disease, or unspecified chronic kidney disease Current Visit: Yes Status: Acute Assessment & Plan: Blood pressure under reasonable control 1. Continue Atenolol 2. Hold Losartan 3. Monitor blood pressure readings with IVFs Code(s): I12.9 - HYPERTENSIVE CHRONIC KIDNEY DISEASE W STG 1-4/UNSP CHR KDNY (4) Hyponatremia Current Visit: Yes Status: Acute Assessment & Plan: Likely a combination of hypovolemia and a pseudohyponatremia from elevated blood sugars 1. NS IVFs 2. Control blood sugars 3. Limit free water 4. Continue thyroid replacement - check TSH 5. Monitor electrolytes - no need for hypertonic saline or tolvaptan Code(s): E87.1 - HYPO-OSMOLALITY AND HYPONATREMIA (5) Acute UTI (urinary tract infection) Current Visit: Yes Status: Acute Assessment & Plan: Likely from elevated blood sugars and glucosuria 1. IV Rocephin 2. Follow up urine culture Code(s): N39.0 - URINARY TRACT INFECTION, SITE NOT SPECIFIED Telemedicine Encounter - Telemedicine Encounter Telemedicine Encounter: The entirety of this encounter was performed via Telemedicine"
[2023-08-11] MEDS: SYNTHROID 100 MCG PO SCH (08:01)
[2023-08-11] MEDS: HUMALOG SQ PRN (08:32)
[2023-08-11] MEDS: HUMALOG SQ SCH (08:32)
--- NOTE | 2023-08-11 08:56 | PCM.NOTE ---
Met with patient bedside. Discussed medication compliance with diabetes regimen. Reiterated the importance of glycemic control. Treating UTI with ceftriaxone empirically as cultures are pending. Add mealtime insulin/SSI. Blood glucose levels improving. Denies fever,cough, sob, cp, abdominal pain, GONZALEZ, dizziness, N/V/D. <DANII LOZADA - Last Filed: 08/11/23 08:54> JEFF Encounter - JEFF Encounter Attestation JEFF Encounter Attestation: "IhswapnilpersonallysLELE Garcia andhavediscussed pertinent aspects of their care with Danii Lozada and agree with the history, physical exam (any modifications based on my personal exam will be noted below), assessment, and plan as outlined in original note. Please see immediately below for my summary of findings and additional assessment and plan along with any meaningful corrections/explanations to the Subjective/Objective portions of the JEFF note will be noted." My portion of the encounter took place via telemedicine. -Patient non compliant with medications, does not take any insulin at home, reports only taking Trulicity. No issues with obtaining medications or following directions. Will give IVF, aim for improved blood sugars on insulin prior to DC tomorrow. Possible UTI, on antibiotics. <ZENY GREEN - Last Filed: 08/11/23 16:53>
[2023-08-11 09:22] LABS: CREATININE,URINE RANDOM 230.5 MG/DL; Creatinine, Urine Random 230.5 mg/dl; Protein Creatinine Ratio, Ran. 0.28 mg/mg (0.0-0.15)
[2023-08-11] MEDS: TENORMIN 50 MG PO SCH (10:36)
[2023-08-11] MEDS: ECOTRIN 81 MG PO SCH (10:36)
[2023-08-11] MEDS: Protonix 40MG Tablet PO SCH (10:37)
[2023-08-11] MEDS: Neurontin PO SCH (10:37)
[2023-08-11] MEDS: Lantus Insulin SQ SCH (10:37)
[2023-08-11] MEDS: Effexor XR 75 MG PO SCH (10:37)
[2023-08-11] MEDS: ENOXAPARIN SODIUM SQ SCH (10:38)
[2023-08-11 10:50] LABS: ALBUMIN 3.2 g/dL (3.5-5.0); ANION GAP 10.7 MEQ/L (5-15); Creatinine 1 1.52 mg/dL (0.52-1.04); EST GLOMERULAR FILTRATION RATE 40.3 ML/MIN; Potassium 4.8 mmol/L (3.5-5.1); Total Protein 6.6 g/dL (6.3-8.2)
[2023-08-11] MEDS: TYLENOL 325 MG PO PRN (12:40)
[2023-08-11] MEDS: ROCEPHIN 1 GM / 100 ML NaCl 1 GM/100 ML IVPB IV SCH (18:28)
[2023-08-11] MEDS: ZOCOR 20MG PO SCH (21:27)
[2023-08-11] MEDS: Requip 0.5 MG PO SCH (21:27)
[2023-08-12 04:53] LABS: Hematocrit 35.4 % (35-47); Hemoglobin 11.6 g/dL (12.0-16.0); Mean Cell Volume 100.9 fL (78-100); Mean Corpuscular Hgb Concent. 32.8 g/dL (32-36); Mean Platelet Volume 11.9 fL (7.5-11.0); Platelet Count 100 x10^3/uL (150-450); Red Blood Count 3.51 x10^6/uL (4.1-5.4); Red Cell Distribution Width 13.1 % (11.5-14.0); White Blood Count 4.1 x10^3/uL (4.0-10.5)
[2023-08-12 05:35] LABS: ALBUMIN 3.1 g/dL (3.5-5.0); ANION GAP 9.1 MEQ/L (5-15); Creatinine 1 1.41 mg/dL (0.52-1.04); EST GLOMERULAR FILTRATION RATE 44.1 ML/MIN; Potassium 4.5 mmol/L (3.5-5.1); Total Protein 6.7 g/dL (6.3-8.2)
[2023-08-12 07:04] VITALS: RESP 18
[2023-08-12 07:52] LABS: ATYPICAL LYMPHS 4 %; Lymphocytes 44 % (24-44); Monocyte 3 % (0.0-12.0); Neutrophils 49 % (36.0-66.0); Total Cells Counted 100
[2023-08-12 07:53] LABS: Platelet Estimate DECREASED (NORMAL)
--- NOTE | 2023-08-12 10:25 | PCM.DS ---
Discharge Summary Date of Admission: 08/11/23 03:35 Date of Discharge: 08/12/2023 Admitting Physician: DAMARIS PITTS MD Primary Care Provider: JUWAN POLANCO Allergies Allergies lisinopril Allergy (Intermediate, Verified 08/10/23 23:56) Cough Penicillins Allergy (Intermediate, Verified 08/10/23 23:56) [facility] Summary - Hospital Course Hospital Course: Ms. Quinteros is a 57 year old female with a past medical history significant for hypertension, diabetes, hyperlipidemia, and morbid obesity who presented to the hospital with complaints of urinary frequency, burning and pelvic pain since , though she believes this has been building up for some time. She has not been taking her Tresiba for her sugars and it was over 400 upon arrival. A1C 10.37. She was diagnosed with a UTI and started on antibiotics. Her initial labs were notable for a creatinine of 1.7. No NSAIDs or contrast studies recently. Does take Losartan and admits she has not been eating/drinking as well as usual. Since admission LEATHA has improved. AST and ALT elevated but she does have fatty liver disease r/t morbid obesity. Will continue oral antibiotics OP. UC + for gram negative organism. Will continue to follow culture. She denies any further concerns at this time. - Vitals & Intake/Output Vital Signs: Vital Signs Temperature 98.2 F 08/12/23 07:03 Pulse Rate 91 H 08/12/23 07:03 Respiratory Rate 18 08/12/23 07:03 Blood Pressure 140/73 08/12/23 07:03 O2 Sat by Pulse Oximetry 94 L 08/12/23 07:03 Intake & Output: Intake & Output 08/09/23 08/10/23 08/11/23 08/12/23 11:59 11:59 11:59 11:59 Intake Total 120 2998 Output Total 175 Balance 120 2823 Weight 212.1 kg 214.4 kg - Lab Result Diagrams: 08/12/23 04:25 08/12/23 04:25 Lab Results-Last 24 Hrs: Lab Results-Last 24 Hours 08/11/23 08/11/23 08/11/23 Range/Units 10:12 11:55 16:14 WBC (4.0-10.5) x10^3/uL RBC (4.1-5.4) x10^6/uL Hgb (12.0-16.0) g/dL Hct (35-47) % MCV (78-100) fL MCH (26-32) pg MCHC (32-36) g/dL RDW (11.5-14.0) % Plt Count (150-450) x10^3/uL MPV (7.5-11.0) fL Segmented Neutrophils (36.0-66.0) % Lymphocytes (Manual) (24-44) % Monocytes (Manual) (0.0-12.0) % Atypical Lymphocytes % Platelet Estimate (NORMAL) RBC Morphology Sodium 128 L (137-145) mmol/L Potassium 4.8 (3.5-5.1) mmol/L Chloride 98 (98-107) mmol/L Carbon Dioxide 24 (22-30) mmol/L Anion Gap 10.7 (5-15) MEQ/L BUN 35 H (7-17) mg/dL Creatinine 1.52 H (0.52-1.04) mg/dL Estimated GFR 40.3 ML/MIN Glucose 342 H (74-106) mg/dL POC Glucometer 334 H 240 H (74 to 106) mg/dL Calcium 8.0 L (8.4-10.2) mg/dL Total Bilirubin 1.00 (0.2-1.3) mg/dL AST 103 H (14-36) U/L ALT 118 H (0-35) U/L Alkaline Phosphatase 95 (38-126) U/L Serum Total Protein 6.6 (6.3-8.2) g/dL Albumin 3.2 L (3.5-5.0) g/dL TSH 3rd Generation (0.47-4.68) mIU/L 08/11/23 08/12/23 08/12/23 Range/Units 21:13 04:25 04:25 WBC 4.1 (4.0-10.5) x10^3/uL RBC 3.51 L (4.1-5.4) x10^6/uL Hgb 11.6 L (12.0-16.0) g/dL Hct 35.4 (35-47) % MCV 100.9 H (78-100) fL MCH 33.0 H (26-32) pg MCHC 32.8 (32-36) g/dL RDW 13.1 (11.5-14.0) % Plt Count 100 L (150-450) x10^3/uL MPV 11.9 H (7.5-11.0) fL Segmented Neutrophils 49 (36.0-66.0) % Lymphocytes (Manual) 44 (24-44) % Monocytes (Manual) 3 (0.0-12.0) % Atypical Lymphocytes 4 % Platelet Estimate DECREASED (NORMAL) RBC Morphology NORMAL Sodium 130 L (137-145) mmol/L Potassium 4.5 (3.5-5.1) mmol/L Chloride 101 (98-107) mmol/L Carbon Dioxide 24 (22-30) mmol/L Anion Gap 9.1 (5-15) MEQ/L BUN 31 H (7-17) mg/dL Creatinine 1.41 H (0.52-1.04) mg/dL Estimated GFR 44.1 ML/MIN Glucose 195 H (74-106) mg/dL POC Glucometer 271 H (74 to 106) mg/dL Calcium 8.0 L (8.4-10.2) mg/dL Total Bilirubin 1.00 (0.2-1.3) mg/dL AST 144 H (14-36) U/L ALT 148 H (0-35) U/L Alkaline Phosphatase 125 (38-126) U/L Serum Total Protein 6.7 (6.3-8.2) g/dL Albumin 3.1 L (3.5-5.0) g/dL TSH 3rd Generation (0.47-4.68) mIU/L 08/12/23 08/12/23 Range/Units 04:25 06:48 WBC (4.0-10.5) x10^3/uL RBC (4.1-5.4) x10^6/uL Hgb (12.0-16.0) g/dL Hct (35-47) % MCV (78-100) fL MCH (26-32) pg MCHC (32-36) g/dL RDW (11.5-14.0) % Plt Count (150-450) x10^3/uL MPV (7.5-11.0) fL Segmented Neutrophils (36.0-66.0) % Lymphocytes (Manual) (24-44) % Monocytes (Manual) (0.0-12.0) % Atypical Lymphocytes % Platelet Estimate (NORMAL) RBC Morphology Sodium (137-145) mmol/L Potassium (3.5-5.1) mmol/L Chloride (98-107) mmol/L Carbon Dioxide (22-30) mmol/L Anion Gap (5-15) MEQ/L BUN (7-17) mg/dL Creatinine (0.52-1.04) mg/dL Estimated GFR ML/MIN Glucose (74-106) mg/dL POC Glucometer 181 H (74 to 106) mg/dL Calcium (8.4-10.2) mg/dL Total Bilirubin (0.2-1.3) mg/dL AST (14-36) U/L ALT (0-35) U/L Alkaline Phosphatase (38-126) U/L Serum Total Protein (6.3-8.2) g/dL Albumin (3.5-5.0) g/dL TSH 3rd Generation 2.250 (0.47-4.68) mIU/L Micro Results-Entire Visit: Microbiology 08/11/23 02:21 Urine Culture - Preliminary Urine, Catheterized GRAM NEGATIVE ID AND SENSITIVITY PENDING Accuchecks Date 08/12/23 Date 08/11/23 Date 08/11/23 Date 08/11/23 Time 07:03 Time 16:26 Time 16:26 Time 12:03 - Procedures and Test Procedures and Tests throughout Hospitalization: Therapy Orders & Screens 08/11/23 03:42 Respiratory Therapy Consult ONCE Comment: Reason For Exam: 08/11/23 06:13 PT Eval & Treat (MD Order) ONCE Reason for Eval:: weakness Diagnosis: Hyperglycemia/UTI 08/12/23 06:00 OT Screen per Nursing Assess ONCE Comment: Protocol Order Physician Instructions: Greater than 3 points order OT Admission Screening Reason For Exam: Triggered on Admission Diagnosis: Hyperglycemia/UTI Open Wound/Cellutlitis/Pressure Ulcers: Yes Acute Fx/ORIF/Change in wt bearing status: No Severe MUSCULOSKELETAL pain: No ADL Dysfunction: No Acute CVA w/Hemiparesis/Hemiplegia: No Decreased Functional Mobility/Strength: No Sprain/Strain: No Acute Post-op Mobility Dysfunction: No Total Points: 5 08/12/23 09:00 PT Screen per Nursing Assess ONCE Comment: Protocol Order Physician Instructions: Greater than 3 points order PT Admission Screenin Reason For Exam: Triggered on Admission Diagnosis: Hyperglycemia/UTI Open Wound/Cellutlitis/Pressure Ulcers: Yes Acute Fx/ORIF/Change in wt bearing status: No Severe MUSCULOSKELETAL pain: No ADL Dysfunction: No Acute CVA w/Hemiparesis/Hemiplegia: No Decreased Functional Mobility/Strength: No Sprain/Strain: No Acute Post-op Mobility Dysfunction: No Total Points: 5 ST Screen per Nursing Assess ONCE Comment: Protocol Order Physician Instructions: Greater than [address] Admission Screening Reason For Exam: Triggered on Admission Diagnosis: Hyperglycemia/UTI CVA/Dyshpagia/Aphasia: No Cognitive Deficits: No Dehydration/Nutrition Deficit: Yes Reflux: No Oral-Motor Difficulties: No Pneumonia: No Prison Resident: No Total Points: 5 Discharge Exam General Appearance: no apparent distress, alert, obese Neurologic Exam: alert, oriented x 3, cooperative, normal mood/affect, nml cerebellar function, sensation nml, No motor deficits Eye Exam: PERRL, EOMI, eyes nml inspection Ears, Nose, Throat Exam: normal ENT inspection, pharynx normal, moist mucous membranes Neck Exam: normal inspection, non-tender, supple, full range of motion Respiratory Exam: normal breath sounds, lungs clear, No respiratory distress Cardiovascular Exam: regular rate/rhythm, normal heart sounds Gastrointestinal/Abdomen Exam: soft, No tenderness, No mass Pelvic Exam: deferred Rectal Exam: deferred Back Exam: normal inspection, normal range of motion, No CVA tenderness, No vertebral tenderness Extremity Exam: normal inspection, normal range of motion Skin Exam: normal color, warm, dry Wound Assessment: Skin/Wound Assessment Wound/Incision Assessment Start: 08/11/23 04:27 Text: Status: Active Freq: Q6H Protocol: Document 08/12/23 05:00 MM (Rec: 08/12/23 05:49 MM [id number]) Wound/Incision Assessment Medial Sacrum Wound Assessment Shift Assessment Wound Stage Non Pressure Wound Drainage Amount None Drainage Odor None/Absent General Appearance Open to air Comment at the medial gluteal cleft, two round raised areas with dark centers are noted. no drainage present, areas are dry and non tender. cleansed and zinc ointment applied. Left Lateral Buttock Wound Assessment Shift Assessment Wound Type Scratch Drainage Amount None Drainage Odor None/Absent General Appearance Open to air Surrounding Tissue [place] Comment scratch noted to the left outer buttock, surrounding skin is reddened, skin cleansed with dale-cleanser and barrier ointment applied. pt educated on not scratching the skin and shifting weight. Upper Buttock Wound Assessment Shift Assessment Wound Type open area Dressing Status Dry & Intact Drainage Amount None Drainage Odor None/Absent General Appearance Open to air,Reddened Surrounding Tissue [place] Primary Dressing mepilex Comment small open area with pink wound bed noted to the left upper buttock, no drainage present, cleansed with dale- cleanser and mepilex applied at this time. Wound Photo Photo Taken No Comment: photos on chart from previous shift. Final Diagnosis/Problem List - Final Discharge Diagnosis/Problem (1) Acute UTI (urinary tract infection) Current Visit: Yes Status: Acute Assessment & Plan: Likely from elevated blood sugars and glucosuria 1. IV Rocephin 2. 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 Will start Lantus 50u daily 2. Insulin sliding scale 3. Diabetic diet 4. FSBS qAC/HS Code(s): WKZ2356 - (3) Morbid obesity with BMI of 70 and over, adult Current Visit: Yes Status: Acute Assessment & Plan: - advised diet and exercise control Code(s): E66.01 - MORBID (SEVERE) OBESITY DUE TO EXCESS CALORIES; Z68.45 - BODY MASS INDEX [BMI] 70 OR GREATER, ADULT (4) Acute kidney injury Current Visit: Yes Status: Acute Assessment & Plan: Likely from prerenal azotemia/UTI in setting of ARB - creatinine elevated at 1.7 1. NS IVFs 2. Will hold ARB 3. Follow I/Os 4. Watch creatinine closely - labs improved - continue to f/u with PCP Op to monitor labs Code(s): N17.9 - ACUTE KIDNEY FAILURE, UNSPECIFIED (5) Chronic kidney disease due to diabetes mellitus Current Visit: Yes Status: Acute Assessment & Plan: - advised to control blood sugars - F/U with PCP OP - Consider referral to nephrology Code(s): E11.22 - TYPE 2 DIABETES MELLITUS W DIABETIC CHRONIC KIDNEY DISEASE (6) Hypertensive chronic kidney disease with stage 1 through stage 4 chronic kidney disease, or unspecified chronic kidney disease Current Visit: Yes Status: Acute Assessment & Plan: - BP stable - Cont home meds Code(s): I12.9 - HYPERTENSIVE CHRONIC KIDNEY DISEASE W STG 1-4/UNSP CHR KDNY (7) Hyponatremia Current Visit: Yes Status: Acute Assessment & Plan: - Na+ 130- mild Code(s): E87.1 - HYPO-OSMOLALITY AND HYPONATREMIA (8) Abnormal AST and ALT Current Visit: Yes Status: Chronic Assessment & Plan: - 2/2 fatty liver disease - F/u with PCP OP - denies pain Code(s): R74.8 - ABNORMAL LEVELS OF OTHER SERUM ENZYMES - Discharge Discharge Date: 08/12/23 Disposition: Home, Self-Care Condition: Stable Prescriptions: Continue Dulaglutide [Trulicity] 3 mg SQ WEEKLY Levothyroxine Sodium 200 mcg PO DAILY Venlafaxine HCl [Effexor Xr] 225 mg PO DAILY Losartan Potassium 25 mg PO DAILY Atenolol 50 mg [Tenormin 50 mg] 50 mg PO DAILY Aspirin [Aspirin EC] 81 mg PO DAILY Multivitamin 1 each PO DAILY Zinc Gluconate [Zinc] 50 mg PO DAILY Gabapentin [Neurontin ] 100 mg PO BID Ropinirole HCl 0.5 mg [Requip 0.5 MG] 0.5 mg PO HS Aripiprazole [Abilify] 0.5 tab PO HS Simvastatin 20Mg [Zocor 20Mg] 20 mg PO QPM Insulin Degludec [Tresiba] 80 unit SQ DAILY Follow up with: JUWAN POLANCO MD [Primary Care Provider] - MARRY PEACE [Family Provider] -
[2023-08-12] MEDS: ROCEPHIN 1 GM / 100 ML NaCl 1 GM/100 ML IVPB IV SCH (10:43)
[2023-08-12 11:53] VITALS: BP 118/59; PULSE 92; TEMP 98.4; O2SAT 96
== END 2023-08-12 16:29 | disposition home or self-care (01) ==
LOC: ED 23:51 → MED SURG 08-11 03:35
PROVIDERS: ADMIT Internal Medicine Nephrology; ATTEND Internal Medicine Nephrology
DX: N39.0 Urinary tract infection, site not specified (principal); I12.9 Hypertensive chronic kidney disease with stage 1 through stage 4 chronic kidney disease, or unspecified chronic kidney disease; E11.22 Type 2 diabetes mellitus with diabetic chronic kidney disease; E11.65 Type 2 diabetes mellitus with hyperglycemia; N18.9 Chronic kidney disease, unspecified; E66.01 Morbid (severe) obesity due to excess calories; Z68.45 Body mass index [BMI] 70 or greater, adult; N17.9 Acute kidney failure, unspecified; E87.1 Hypo-osmolality and hyponatremia; R74.8 Abnormal levels of other serum enzymes; E78.5 Hyperlipidemia, unspecified; Z79.899 Other long term (current) drug therapy; Z20.828 Contact with and (suspected) exposure to other viral communicable diseases
CPT/HCPCS: 36000; 36415; 80053; 81001; 82570; 82805; 82947; 83036; 83605; 83735; 84156; 84300; 84443; 85025; 87086; 94760; 96372; 96374; 97161; 99284; Q3014; 87077; 87186; 93268; J0696; J1650; J1815; J1817; A9270-GY; G0378

== ENCOUNTER 2025-03-11 13:51 | Emergency (ER) | payer MEDICARE ==
[2025-03-11 14:09] VITALS: RESP 18; TEMP 98.5
[2025-03-11 14:32] LABS: BASOPHIL % 0.7 % (0.1-1.2); Basophil (Absolute #) 0.05 x10^3/uL (0.01-0.08); Eosinophil (Absolute #) 0.26 x10^3/uL (0.04-0.36); Hematocrit 34.5 % (34.1-44.9); Hemoglobin 11.2 g/dL (11.2-15.7); IMMATURE GRAN # 0.03 x10^3u/L (0.001-0.031); IMMATURE GRAN % 0.4 % (0.001-0.429); Lymphocyte (Absolute #) 1.57 x10^3/uL (1.18-3.74); Mean Corpuscular Hemoglobin 31.3 pg (25.6-32.2); Mean Corpuscular Hgb Concent. 32.5 g/dL (32.2-35.5); Monocyte (Absolute #) 0.58 x10^3/uL (0.24-0.86); NUCLEATED RBC # 0.00 x10^3u/L (0.00-0.012); NUCLEATED RBC % 0.0 % (0.00-0.2); Platelet Count 198 x10^3/uL (182-369); Red Blood Count 3.58 x10^6/uL (3.93-5.22); White Blood Count 7.4 x10^3/uL (3.98-10.04)
[2025-03-11 14:36] LABS: Calcium 8.7 mg/dL (8.4-10.2); Carbon Dioxide 24.0 mmol/L (22-30); Creatinine 1 1.29 mg/dL (0.52-1.04); EST GLOMERULAR FILTRATION RATE 48.4 ML/MIN; Glucose 133.0 mg/dL (74-106); SGOT/AST 66.0 U/L (14-36); SGPT/ALT 105.0 U/L (0-35); Total Protein 6.5 g/dL (6.3-8.2)
[2025-03-11 14:38] LABS: Potassium 5.7 mmol/L (3.5-5.1)
--- NOTE | 2025-03-11 14:50 | XRAY ---
Indication: Headache. Comparison: February 14, 2019 Portable chest demonstrates new subtle right infrahilar interstitial alveolar opacities, possible pneumonia/pneumonitis. Remaining lungs clear. Heart remains borderline enlarged. Bony thorax intact again with mild degenerative changes.
--- NOTE | 2025-03-11 15:16 | ERPHSYRPT ---
- History of Present Illness Patient Subjective Stated Complaint: Pt. states, "I ran out of my cymbalta 5 days ago. Today I started having a headache and pain in the back of my neck. I feel a little dizzy and my legs are swollen." Triage Nursing Assessment: Pt. arrives via EMS, A&Ox3, Skin P/W/D, Resp even unlabored. 2-3 + P. edema noted in BLE's. Physician History: Presents with possible high blood pressure, she states she has been off her Cymbalta for 5 days, she also had some dizziness, she had a mild headache,She denied having any chest pain or shortness of breath Timing/Duration: today Severity: moderate Modifying Factors: Improves With: medication Associated Symptoms: headaches Allergies/Adverse Reactions: lisinopril Allergy (Intermediate, Verified 08/10/23 23:56) Cough Penicillins Allergy (Intermediate, Verified 08/10/23 23:56) Rash Home Medications: Aripiprazole [Abilify] 0.5 tab PO HS 08/11/23 [History] Aspirin [Aspirin EC] 81 mg PO DAILY 08/11/23 [History] Atenolol 50 mg [Tenormin 50 mg] 50 mg PO DAILY 08/11/23 [History] Dulaglutide [Trulicity] 3 mg SQ WEEKLY 08/11/23 [History] Gabapentin [Neurontin ] 100 mg PO BID 08/11/23 [History] Insulin Degludec [Tresiba] 80 unit SQ DAILY 08/11/23 [History] Levothyroxine Sodium 200 mcg PO DAILY 08/11/23 [History] Losartan Potassium 25 mg PO DAILY 08/11/23 [History] Multivitamin 1 each PO DAILY 08/11/23 [History] Ropinirole HCl 0.5 mg [Requip 0.5 MG] 0.5 mg PO HS 08/11/23 [History] Simvastatin 20Mg [Zocor 20Mg] 20 mg PO QPM 08/11/23 [History] Venlafaxine HCl [Effexor Xr] 225 mg PO DAILY 08/11/23 [History] Zinc Gluconate [Zinc] 50 mg PO DAILY 08/11/23 [History] Hx Tetanus, Diphtheria Vaccination/Date Given: Yes Hx Influenza Vaccination/Date Given: Yes Hx Pneumococcal Vaccination/Date Given: Yes (2016) Immunizations Up to Date: No Travel Risk - International Travel Have you traveled outside of the country in past 3 weeks: No - Emerging Infectious Disease Are you exhibiting symptoms associated with any current EIDs: No - Past Medical History Pertinent Past Medical History: Yes Neurological History: Peripheral Neuropathy ENT History: No Pertinent History Cardiac History: High Cholesterol, Hypertension Respiratory History: No Pertinent History Endocrine Medical History: Diabetes Type II, Hypothyroidism, Liver Disease Musculoskeletal History: Arthritis GI Medical History: Diverticulosis History: No Pertinent History Psycho-Social History: Depression Female Reproductive Disorders: Endometriosis - Past Surgical History Past Surgical History: Yes Neuro Surgical History: No Pertinent History Cardiac: No Pertinent History Respiratory: No Pertinent History Gastrointestinal: No Pertinent History Genitourinary: No Pertinent History Musculoskeletal: Orthopedic Surgery Female Surgical History: Hysterectomy Other Surgical History: ganglion cyst removal right wrist - Social History Smoking Status: Never smoker Exposure to second hand smoke: No Drug Use: none - Social Determinants of Health Will the patient participate in the screening: Declined to provide - Nursing Vital Signs Nursing Vital Signs: Initial Vital Signs Temperature 98.5 F 03/11/25 13:51 Pulse Rate 80 03/11/25 13:51 Respiratory Rate 18 03/11/25 13:51 Blood Pressure 176/90 03/11/25 13:51 O2 Sat by Pulse Oximetry 98 03/11/25 13:51 Pain Scale Pain Intensity 5 - Physical Exam General Appearance: no apparent distress, alert, obese Eye Exam: PERRL/EOMI, eyes nml inspection Ears, Nose, Throat Exam: normal ENT inspection, pharynx normal Neck Exam: normal inspection, non-tender, supple, full range of motion Respiratory Exam: normal breath sounds, lungs clear Cardiovascular Exam: regular rate/rhythm, normal heart sounds, normal peripheral pulses Gastrointestinal/Abdomen Exam: soft, normal bowel sounds, No tenderness Extremity Exam: normal inspection, normal range of motion, pelvis stable Neurologic Exam: alert, oriented x 3, cooperative, film technician II-XII nml as tested Skin Exam: normal color, warm, dry SpO2 Interpretation: normal SpO2: 100 Ordered Tests: Active Orders 24 hr Category Date Time Status EKG-ER Only STAT Care 03/11/25 14:12 Active IV Insertion STAT Care 03/11/25 14:12 Active CHEST 1 VIEW (PORTABLE) Stat Exams 03/11/25 14:12 Completed CBC W DIFF Stat Lab 03/11/25 14:15 Completed CMP Stat Lab 03/11/25 14:15 Completed MAGNESIUM Stat Lab 03/11/25 14:15 Completed TROPONIN Q4H Lab 03/11/25 14:15 Completed TROPONIN Q4H Lab 03/11/25 18:15 Ordered TROPONIN Q4H Lab 03/11/25 22:15 Ordered Lab/Rad Data: Laboratory Result Diagrams 03/11/25 14:15 03/11/25 14:15 Laboratory Results 03/11/25 03/11/25 03/11/25 Range/Units 14:15 14:15 14:15 WBC 7.4 (3.98-10.04) x10^3/uL RBC 3.58 L (3.93-5.22) x10^6/uL Hgb 11.2 (11.2-15.7) g/dL Hct 34.5 (34.1-44.9) % MCV 96.4 H (79.4-94.8) fL MCH 31.3 (25.6-32.2) pg MCHC 32.5 (32.2-35.5) g/dL RDW 13.1 (11.7-14.4) % Plt Count 198 (182-369) x10^3/uL MPV 10.2 (9.4-12.3) fL Gran % 66.4 (34.0-71.1) % Immature Gran % (Auto) 0.4 (0.001-0.429) % Nucleat RBC Rel Count 0.0 (0.00-0.2) % Eos # (Auto) 0.26 (0.04-0.36) x10^3/uL Immature Gran # (Auto) 0.03 (0.001-0.031) x10^3u/L Absolute Lymphs (auto) 1.57 (1.18-3.74) x10^3/uL Absolute Monos (auto) 0.58 (0.24-0.86) x10^3/uL Absolute Nucleated RBC 0.00 (0.00-0.012) x10^3u/L Lymphocytes % 21.2 (19.3-51.7) % Monocytes % 7.8 (4.7-12.5) % Eosinophils % 3.5 (0.7-5.8) % Basophils % 0.7 (0.1-1.2) % Absolute Granulocytes 4.90 (1.56-6.13) x10^3/uL Basophils # 0.05 (0.01-0.08) x10^3/uL Sodium 138 (135-145) mmol/L Potassium 5.7 H (3.5-5.1) mmol/L Chloride 108 H (98-107) mmol/L Carbon Dioxide 24 (22-30) mmol/L Anion Gap 11.8 (5-15) MEQ/L BUN 40 H (7-17) mg/dL Creatinine 1.29 H (0.52-1.04) mg/dL Estimated GFR 48.4 ML/MIN Glucose 133 H (74-106) mg/dL Calcium 8.7 (8.4-10.2) mg/dL Magnesium 2.0 (1.6-2.3) mg/dL Total Bilirubin 0.30 (0.2-1.3) mg/dL AST 66 H (14-36) U/L ALT 105 H (0-35) U/L Alkaline Phosphatase 122 (38-126) U/L Troponin I < 0.012 (0.000-0.033) ng/mL Serum Total Protein 6.5 (6.3-8.2) g/dL Albumin 3.2 L (3.5-5.0) g/dL - Progress Progress: unchanged Progress Note: 03/11/25 16:11 Discussed lab results, patient's potassium has been on the high side, last lab drawn was 12/09/24 and her level was 5.9 at that time today she is 5.7, her creatinine has remained stable at around 1.5, We were unable to do CT of the brain is the patient was too large to fit into the CT scanner, she is neurologically intact, I think most of her symptoms are related to her stopping her Cymbalta, She is supposed to be on a Lokalema But she has been noncompliant with the medication because she does not like the fact that it gives her diarrhea, we discussed this and I explained to her that her potassium is been edging up and that is a bad thing, she states that she will restart her medications and follow-up to her doctor next week - Departure Departure Disposition: Home Clinical Impression: Chronic hyperkalemia, Chronic kidney disease due to diabetes mellitus, Morbid obesity with BMI of 70 and over, adult Condition: Stable Critical Care Time: No Referrals: [facility] [Primary Care Provider, UNKNOWN] - Follow up/PCP as directed Instructions: Hyperkalemia, Chronic kidney disease, Duloxetine Additional Instructions: restart Lokalema for Potassium; Follow-up with primary care doctor next week Prescriptions: Duloxetine HCl 20 mg PO BID #40 cap
[2025-03-11 16:17] VITALS: PULSE 86
[2025-03-11 17:31] VITALS: BP 150/76; O2SAT 99
== END 2025-03-11 17:15 | disposition home or self-care (01) ==
LOC: ED 13:51
DX: E87.5 Hyperkalemia (principal); I12.9 Hypertensive chronic kidney disease with stage 1 through stage 4 chronic kidney disease, or unspecified chronic kidney disease; E11.22 Type 2 diabetes mellitus with diabetic chronic kidney disease; N18.9 Chronic kidney disease, unspecified; E66.01 Morbid (severe) obesity due to excess calories; R51.9 Headache, unspecified; R42 Dizziness and giddiness; E11.42 Type 2 diabetes mellitus with diabetic polyneuropathy; Z79.85 Long-term (current) use of injectable non-insulin antidiabetic drugs; Z79.4 Long term (current) use of insulin; Z79.899 Other long term (current) drug therapy

== ENCOUNTER 2025-04-10 16:39 | Emergency (ER) | payer MEDICARE ==
[2025-04-10 16:46] VITALS: TEMP 97.4
--- NOTE | 2025-04-10 16:46 | ERPHSYRPT ---
- History of Present Illness Time Seen by Provider: 04/10/25 16:45 Source: patient, EMS, old records Exam Limitations: no limitations Physician History: This is a morbidly obese white female who was brought to the emergency department by the warehouse analyst service after she fell near her home when she missed a step while walking. Patient generally walks with a cane. She fell onto her right knee and right shoulder. Patient did not hurt her head or neck. She has no neck pain or headache. She has no pain anywhere else. She has full range of motion but she wanted to be sure she did or did not have fracture or dislocation. She states she has bad knees. Patient has multiple medical issues including insulin-dependent diabetes, hypertension, hyperlipidemia, depression, hypothyroidism and peripheral neuropathy. Occurred: just prior to arrival Reason for Fall: tripped, fell from standing pos Injuries/Pain Location: upper extremity (Right shoulder), lower extremity (Right knee) Loss of Consciousness: no loss of consciousness Quality: aching Severity of Pain-Max: mild Severity of Pain-Current: mild Modifying Factors: Improves With: movement Associated Symptoms (Fall): extremity injury (Right shoulder and right knee) Allergies/Adverse Reactions: lisinopril Allergy (Intermediate, Verified 04/10/25 16:42) Cough Penicillins Allergy (Intermediate, Verified 04/10/25 16:42) Rash Home Medications: Aripiprazole [Abilify] 0.5 tab PO HS 08/11/23 [History] Aspirin [Aspirin EC] 81 mg PO DAILY 08/11/23 [History] Atenolol 50 mg [Tenormin 50 mg] 50 mg PO DAILY 08/11/23 [History] Dulaglutide [Trulicity] 3 mg SQ WEEKLY 08/11/23 [History] Gabapentin [Neurontin ] 100 mg PO BID 08/11/23 [History] Insulin Degludec [Tresiba] 80 unit SQ DAILY 08/11/23 [History] Levothyroxine Sodium 200 mcg PO DAILY 08/11/23 [History] Losartan Potassium 25 mg PO DAILY 08/11/23 [History] Multivitamin 1 each PO DAILY 08/11/23 [History] Ropinirole HCl 0.5 mg [Requip 0.5 MG] 0.5 mg PO HS 08/11/23 [History] Simvastatin 20Mg [Zocor 20Mg] 20 mg PO QPM 08/11/23 [History] Venlafaxine HCl [Effexor Xr] 225 mg PO DAILY 08/11/23 [History] Zinc Gluconate [Zinc] 50 mg PO DAILY 08/11/23 [History] Hx Tetanus, Diphtheria Vaccination/Date Given: Yes Hx Influenza Vaccination/Date Given: Yes Hx Pneumococcal Vaccination/Date Given: Yes (2015) Travel Risk - International Travel Have you traveled outside of the country in past 3 weeks: No - Emerging Infectious Disease Are you exhibiting symptoms associated with any current EIDs: No - Review of Systems Constitutional: No Symptoms Eyes: No Symptoms Ears, Nose, & Throat: No Symptoms Respiratory: No Symptoms Cardiac: No Symptoms Abdominal/Gastrointestinal: No Symptoms Genitourinary Symptoms: No Symptoms Musculoskeletal: Fall, Injury, Joint Pain (Right shoulder and right knee) Skin: No Symptoms Neurological: No Symptoms Psychological: No Symptoms Endocrine: No Symptoms Hematologic/Lymphatic: No Symptoms Immunological/Allergic: No Symptoms All Other Systems: Reviewed and Negative - Past Medical History Pertinent Past Medical History: Yes Neurological History: Peripheral Neuropathy ENT History: No Pertinent History Cardiac History: High Cholesterol, Hypertension Respiratory History: No Pertinent History Endocrine Medical History: Diabetes Type II, Hypothyroidism, Liver Disease Musculoskeletal History: Arthritis GI Medical History: Diverticulosis History: No Pertinent History Psycho-Social History: Depression Female Reproductive Disorders: Endometriosis - Past Surgical History Past Surgical History: Yes Neuro Surgical History: No Pertinent History Cardiac: No Pertinent History Respiratory: No Pertinent History Gastrointestinal: No Pertinent History Genitourinary: No Pertinent History Musculoskeletal: Orthopedic Surgery Female Surgical History: Hysterectomy Other Surgical History: ganglion cyst removal right wrist - Social History Smoking Status: Never smoker Exposure to second hand smoke: No Drug Use: none - Social Determinants of Health Will the patient participate in the screening: Declined to provide - Nursing Vital Signs Nursing Vital Signs: Initial Vital Signs Temperature 97.4 F 04/10/25 16:45 Pulse Rate 95 H 04/10/25 16:45 Respiratory Rate 16 04/10/25 16:45 Blood Pressure 168/86 04/10/25 16:45 O2 Sat by Pulse Oximetry 97 04/10/25 16:45 Pain Scale Pain Intensity 7 - [place] Coma Score Best Eye Response (Adrianna): (4) open spontaneously Best Verbal Response (Adrianna): (5) oriented Best Motor Response (Adrianna): (6) obeys commands [place] Total: 15 - Physical Exam General Appearance: no apparent distress, alert, obese Head Injury: no evidence of injury Eye Exam: PERRL/EOMI, eyes nml inspection ENT Exam: airway nml, nml ext.inspection Neck Exam: supple, trachea midline, full range of motion, normal alignment, normal inspection Respiratory/Chest Exam: No chest tenderness, No respiratory distress, No ecchymosis, No crepitus Gastrointestinal Exam: No tenderness Rectal Exam: not done Back Exam: normal inspection, normal range of motion, No CVA tenderness, No vertebral tenderness Extremity Exam: normal inspection, normal range of motion, pain with movement (Mild), tenderness (Anterior right knee and lateral right shoulder) Neurologic Exam: alert, oriented x 3, cooperative, rail washer II-XII nml as tested, normal mood/affect, sensation nml Skin Exam: normal color, warm, dry SpO2 Interpretation: normal O2 Delivery: Room Air - Course Nursing assessment & vital signs reviewed: Yes Ordered Tests: Active Orders 24 hr Category Date Time Status KNEE (1 OR 2 VIEW) Stat Exams 04/10/25 16:57 Completed SHOULDER Stat Exams 04/10/25 16:57 Completed - Progress Progress: unchanged, pain not gone completely, re-examined Progress Note: 04/10/25 17:01 My medical decision making and the assignment of low to moderate complexity of this patient's medical issue today is based on review of the patient's past medical history, review the patient's medication list, reviewed patient drug allergy list, history present illness and physical findings on examination. The workup in this patient includes x-ray of the right shoulder and right knee. Differential diagnosis includes but is not limited to contusion right shoulder, contusion right knee, dislocated right shoulder, dislocated right knee, fracture right shoulder, fracture right knee 04/10/25 18:33 I interpreted the following preliminary x-ray reports: Right shoulder x-ray shows no acute fracture or dislocation. Right knee x-ray shows no acute fracture or dislocation. The radiologist interpreted the following final x-ray reports: Right shoulder x-ray shows no acute fracture or dislocation. There is significant osteoarthritic changes. Right knee x-ray shows no acute fracture or dislocation. There is advanced osteoarthritic changes. There is mild joint effusion. 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 - Diagnostic Testing Diagnostic test were ordered, analyzed, and reviewed by me: Yes Radiological Interpretation: Interpreted by me, Reviewed by me, Teleradiologist Report - Risk of complications Low Risk: Low risk of morbidity from additional dx testing or treatment - Departure Departure Disposition: Home Clinical Impression: Fall with no significant injury, Contusion of right shoulder, Contusion of right knee, Effusion of right knee joint Condition: Stable Critical Care Time: No Referrals: [facility] [Primary Care Provider, UNKNOWN] - Follow up/PCP as directed Additional Instructions: If there are no contraindications, you may use Tylenol and ibuprofen for pain control. Ice pack to tender areas 3 times a day for the next 72 hours. Contact your primary care provider on 04/13/2025, to make arrangements for follow-up appointment to be seen in the next 3 to 5 days. Ambulate as tolerated
[2025-04-10 17:45] VITALS: BP 193/105; RESP 18
--- NOTE | 2025-04-10 17:48 | XRAY ---
CLINICAL HISTORY: Fall injury COMPARISON: No prior studies are available for comparison. TECHNIQUE: X-ray images of the right knee were obtained in anteroposterior (AP) and lateral projections. FINDINGS: Bone Structure: The bone structure is normal and well aligned. No evidence of acute fractures or dislocations is seen. No osseous lesions or abnormalities are identified. Diffuse osteopenia is present. Joint Spaces: Advanced osteoarthritic changes are present, in the form of markedly narrowed medial joint space, osteophytic lipping, and subchondral sclerosis, with secondary varus deformity. Patella: The patella is normal in position and alignment. No evidence of patellar dislocation or subluxation is observed. Soft Tissues: No evidence of soft tissue swelling is seen. Additional Findings: Mild joint effusion is noted. An area of subcutaneous calcification/ossification is seen anterior to the tibia. IMPRESSION: 1. No evidence of acute fractures or dislocations. 2. Diffuse osteopenia is present. 3. Advanced osteoarthritic changes with secondary varus deformity. Suggest clinical correlation. 4. Mild joint effusion. Suggest clinical correlation. 5. An area of subcutaneous calcification/ossification is seen anterior to the tibia. Suggest clinical correlation. Disclaimer: A subtle bone abnormality or fracture may not be readily apparent on X-rays, thus clinical correlation and further imaging including follow-up CT, MRI, or follow-up X-rays are advised as needed. Electronically Signed by: Benjamin Morrow MD. (04/10/2025 17:46:32 EDT)
[2025-04-10 18:03] VITALS: PULSE 997; O2SAT 99
--- NOTE | 2025-04-10 18:24 | XRAY ---
CLINICAL HISTORY: Fall injury COMPARISON: No prior studies available for comparison. TECHNIQUE: X-ray images of the right shoulder were obtained in anteroposterior (AP) and Y-view projections. FINDINGS: This is a limited study due to patient habitus. Bone Structure: The bone structure is normal and aligned. There is no evidence of fracture or dislocation. The humeral head is properly positioned in the glenoid fossa. No osseous lesions or abnormalities are identified. Diffuse osteopenia is noted. Joint Spaces: There are advanced glenohumeral and moderate acromioclavicular joint osteoarthritic changes with relatively narrowed joint spaces, osteophytosis, and subchondral sclerosis of the articulating surfaces. 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 Soft Tissues: The soft tissues appear normal and unremarkable. There is no soft tissue swelling, calcification, or foreign body noted. Additional Findings: There are no signs of bone spurs, lytic, or sclerotic lesions. IMPRESSION: 1. There is no acute fracture or dislocation. 2. 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 3. Advanced glenohumeral joint osteoarthritic changes are present. Disclaimer: A subtle bone abnormality or fracture may not be readily apparent on X-rays, thus clinical correlation and further imaging including follow-up CT, MRI, or follow-up X-rays are advised as needed. Electronically Signed by: Benjamin Morrow MD. (04/10/2025 18:23:39 EDT)
== END 2025-04-10 18:45 | disposition home or self-care (01) ==
LOC: ED 16:39
DX: S80.01XA Contusion of right knee, initial encounter (principal); S40.011A Contusion of right shoulder, initial encounter; W10.1XXA Fall (on)(from) sidewalk curb, initial encounter; M25.461 Effusion, right knee; E11.42 Type 2 diabetes mellitus with diabetic polyneuropathy; I10 Essential (primary) hypertension; Z79.85 Long-term (current) use of injectable non-insulin antidiabetic drugs; Z79.4 Long term (current) use of insulin; Z79.899 Other long term (current) drug therapy

== ENCOUNTER 2025-04-19 16:13 | Emergency (ER) | payer MEDICARE ==
[2025-04-19 16:52] LABS: BASOPHIL % 0.8 % (0.1-1.2); Basophil (Absolute #) 0.06 x10^3/uL (0.01-0.08); Eosinophil (Absolute #) 0.38 x10^3/uL (0.04-0.36); Hematocrit 36.9 % (34.1-44.9); Hemoglobin 11.8 g/dL (11.2-15.7); IMMATURE GRAN # 0.03 x10^3u/L (0.001-0.031); IMMATURE GRAN % 0.4 % (0.001-0.429); Lymphocyte (Absolute #) 1.40 x10^3/uL (1.18-3.74); Mean Corpuscular Hemoglobin 30.8 pg (25.6-32.2); Mean Corpuscular Hgb Concent. 32.0 g/dL (32.2-35.5); Monocyte (Absolute #) 0.72 x10^3/uL (0.24-0.86); NUCLEATED RBC # 0.00 x10^3u/L (0.00-0.012); NUCLEATED RBC % 0.0 % (0.00-0.2); Platelet Count 208 x10^3/uL (182-369); Red Blood Count 3.83 x10^6/uL (3.93-5.22); White Blood Count 7.6 x10^3/uL (3.98-10.04)
[2025-04-19] MEDS ORDERED: Lopressor 25MG Tab ONE (16:57)
[2025-04-19] MEDS: Lopressor 25MG Tab PO ONE (16:57)
[2025-04-19 17:07] LABS: Calcium 8.7 mg/dL (8.4-10.2); Carbon Dioxide 22.0 mmol/L (22-30); Creatinine 1 1.71 mg/dL (0.52-1.04); EST GLOMERULAR FILTRATION RATE 34.5 ML/MIN; Glucose 214.0 mg/dL (74-106); Potassium 5.2 mmol/L (3.5-5.1)
[2025-04-19 17:17] VITALS: O2SAT 96
[2025-04-19] MEDS: XYLOCAINE 1% HCL 20 ML MDV IJ STA (17:20)
[2025-04-19] MEDS ORDERED: TRANDATE 20 MG/4 ML SYRINGE IV ONE (18:30)
[2025-04-19] MEDS: TRANDATE 20 MG/4 ML SYRINGE IV ONE (18:31)
--- NOTE | 2025-04-19 19:15 | ERPHSYRPT ---
- History of Present Illness Patient Subjective Stated Complaint: c/o high BP Triage Nursing Assessment: patient brought to ED by daughter with c/o hypertension. patient called her doctor and her doctore advised her to come in. patient had a BP of 216/96 upon arrival. skin w/n/d, brought in by wheelchair, afebrile, patient rates headache pain 6/10 at this time. Physician History: High blood pressure, patient normally takes metoprolol 25 mg twice a day and just had amlodipine added to her program, her blood pressure was as high as 220/100 according to the family member, She denied having any chest pain, she denied any shortness of breath, show any weakness, She denied blurred vision or loss of vision, she denied headache Allergies/Adverse Reactions: lisinopril Allergy (Intermediate, Verified 04/19/25 16:17) Cough Penicillins Allergy (Intermediate, Verified 04/19/25 16:17) Rash Home Medications: Aripiprazole [Abilify] 0.5 tab PO HS 08/11/23 [History] Aspirin [Aspirin EC] 81 mg PO DAILY 08/11/23 [History] Levothyroxine Sodium 175 mcg PO DAILY 08/11/23 [History] Multivitamin 1 each PO DAILY 08/11/23 [History] Amlodipine Besylate 2.5 mg PO DAILY 04/19/25 [History] Atorvastatin Calcium 40 mg PO HS 04/19/25 [History] Insulin Aspart [Novolog] 15 units SQ TID 04/19/25 [History] Insulin Glargine,Hum.rec.anlog [Basaglar Kwikpen U-100] 25 mg SQ DAILY 04/19/25 [History] Loratadine 10 mg [Claritin 10 mg] 10 mg PO DAILY 04/19/25 [History] Metoprolol Succinate 25 mg Xl* [Toprol-Xl 25MG Tablets] 25 mg PO BID 04/19/25 [History] Pregabalin 25 mg [Lyrica 25 MG] 25 mg PO TID 04/19/25 [History] Hx Tetanus, Diphtheria Vaccination/Date Given: No Hx Influenza Vaccination/Date Given: No Hx Pneumococcal Vaccination/Date Given: Yes (2015) Travel Risk - International Travel Have you traveled outside of the country in past 3 weeks: No - Emerging Infectious Disease Are you exhibiting symptoms associated with any current EIDs: No - Past Medical History Pertinent Past Medical History: Yes Neurological History: Peripheral Neuropathy ENT History: No Pertinent History Cardiac History: High Cholesterol, Hypertension Respiratory History: No Pertinent History Endocrine Medical History: Diabetes Type II, Hypothyroidism, Liver Disease Musculoskeletal History: Arthritis GI Medical History: Diverticulosis History: No Pertinent History Psycho-Social History: Depression Female Reproductive Disorders: Endometriosis - Past Surgical History Past Surgical History: Yes Neuro Surgical History: No Pertinent History Cardiac: No Pertinent History Respiratory: No Pertinent History Gastrointestinal: No Pertinent History Genitourinary: No Pertinent History Musculoskeletal: Orthopedic Surgery Female Surgical History: Hysterectomy Other Surgical History: ganglion cyst removal right wrist - Social History Smoking Status: Never smoker Exposure to second hand smoke: No Drug Use: none - Social Determinants of Health Will the patient participate in the screening: Declined to provide - Nursing Vital Signs Nursing Vital Signs: Initial Vital Signs Pulse Rate 97 H 04/19/25 16:18 Respiratory Rate 18 04/19/25 16:18 O2 Sat by Pulse Oximetry 96 04/19/25 16:18 Pain Scale Pain Intensity 6 - Physical Exam General Appearance: no apparent distress, alert, obese Eye Exam: PERRL/EOMI, eyes nml inspection Ears, Nose, Throat Exam: normal ENT inspection, TMs normal, pharynx normal, moist mucous membranes Neck Exam: normal inspection, non-tender, supple, full range of motion Respiratory Exam: normal breath sounds, lungs clear, No respiratory distress Cardiovascular Exam: regular rate/rhythm, normal heart sounds, normal peripheral pulses Gastrointestinal/Abdomen Exam: soft, normal bowel sounds, No tenderness, No mass Back Exam: normal inspection, normal range of motion, No CVA tenderness, No vertebral tenderness Extremity Exam: normal inspection, normal range of motion, pelvis stable Neurologic Exam: alert, oriented x 3, cooperative, normal mood/affect, nml cerebellar function, nml station & gait, sensation nml, No motor deficits Skin Exam: normal color, warm, dry, No rash Lymphatic Exam: No adenopathy SpO2 Interpretation: normal SpO2: 96 Ordered Tests: Active Orders 24 hr Category Date Time Status IV Insertion STAT Care 04/19/25 16:43 Active BMP Stat Lab 04/19/25 16:50 Completed CBC W DIFF Stat Lab 04/19/25 16:50 Completed Medication Summary Discontinued Medications Generic Name Dose Route Start Last Admin Trade Name Freq PRN Reason Stop Dose Admin Labetalol HCl 20 mg 04/19/25 18:19 04/19/25 18:31 Labetalol Hcl 20 Mg/4 Ml Disp.Syringe IV 04/19/25 18:20 20 mg STAT ONE Administration Labetalol HCl Confirm 04/19/25 18:30 Labetalol Hcl 20 Mg/4 Ml Disp.Syringe Administered 04/19/25 18:31 Dose 20 mg IV .STK-MED ONE Lidocaine HCl 10 ml 04/19/25 17:18 04/19/25 17:20 Lidocaine Hcl 1% 20 Ml Mdv 20 Ml Ml IJ 04/19/25 17:19 Not Given STAT STA Metoprolol Tartrate 25 mg 04/19/25 16:54 04/19/25 16:57 Metoprolol Tartrate 25 Mg Tab PO 04/19/25 16:55 25 mg STAT ONE Administration Metoprolol Tartrate Confirm 04/19/25 16:57 Metoprolol Tartrate 25 Mg Tab Administered 04/19/25 16:58 Dose 25 mg .ROUTE .STK-MED ONE Lab/Rad Data: Laboratory Result Diagrams 04/19/25 16:50 04/19/25 16:50 Laboratory Results 04/19/25 04/19/25 Range/Units 16:50 16:50 WBC 7.6 (3.98-10.04) x10^3/uL RBC 3.83 L (3.93-5.22) x10^6/uL Hgb 11.8 (11.2-15.7) g/dL Hct 36.9 (34.1-44.9) % MCV 96.3 H (79.4-94.8) fL MCH 30.8 (25.6-32.2) pg MCHC 32.0 L (32.2-35.5) g/dL RDW 13.2 (11.7-14.4) % Plt Count 208 (182-369) x10^3/uL MPV 10.0 (9.4-12.3) fL Gran % 66.1 (34.0-71.1) % Immature Gran % (Auto) 0.4 (0.001-0.429) % Nucleat RBC Rel Count 0.0 (0.00-0.2) % Eos # (Auto) 0.38 H (0.04-0.36) x10^3/uL Immature Gran # (Auto) 0.03 (0.001-0.031) x10^3u/L Absolute Lymphs (auto) 1.40 (1.18-3.74) x10^3/uL Absolute Monos (auto) 0.72 (0.24-0.86) x10^3/uL Absolute Nucleated RBC 0.00 (0.00-0.012) x10^3u/L Lymphocytes % 18.3 L (19.3-51.7) % Monocytes % 9.4 (4.7-12.5) % Eosinophils % 5.0 (0.7-5.8) % Basophils % 0.8 (0.1-1.2) % Absolute Granulocytes 5.04 (1.56-6.13) x10^3/uL Basophils # 0.06 (0.01-0.08) x10^3/uL Sodium 134 L (135-145) mmol/L Potassium 5.2 H (3.5-5.1) mmol/L Chloride 104 (98-107) mmol/L Carbon Dioxide 22 (22-30) mmol/L Anion Gap 12.9 (5-15) MEQ/L BUN 51 H (7-17) mg/dL Creatinine 1.71 H (0.52-1.04) mg/dL Estimated GFR 34.5 ML/MIN Glucose 214 H (74-106) mg/dL Calcium 8.7 (8.4-10.2) mg/dL - Progress Progress Note: 04/19/25 19:09 BP 188/83, Labs normal, recommend increasing her metoprolol to 50 mg twice daily, Follow-up primary care doctor - Departure Departure Disposition: Home Clinical Impression: Hypertension, uncontrolled Condition: Fair Critical Care Time: No Referrals: LUDA HERNANDEZ MD [Primary Care Provider, [facility]] - Follow up with PCP 7 days Instructions: High blood pressure - ED discharge instructions Additional Instructions: Increase your metoprolol to 50 mg (2 tablets) twice a day, Follow-up to primary care doctor to have your blood pressure rechecked and possibly have your dose of medication increased next week
[2025-04-19 19:23] VITALS: BP 195/75; PULSE 74; RESP 15
== END 2025-04-19 19:40 | disposition home or self-care (01) ==
LOC: ED 16:13
DX: I10 Essential (primary) hypertension (principal); E11.42 Type 2 diabetes mellitus with diabetic polyneuropathy; Z79.4 Long term (current) use of insulin; Z79.899 Other long term (current) drug therapy

== ENCOUNTER 2025-05-07 13:12 | Emergency (ER) | payer MEDICARE | END 2025-05-07 14:59 | disposition left against medical advice (07) | LOC: ED 13:12 | DX: Z53.21 Procedure and treatment not carried out due to patient leaving prior to being seen by health care provider (principal) ==

== ENCOUNTER 2025-05-07 19:39 | Inpatient (IN) | payer MEDICARE ==
[2025-05-07 20:38] LABS: Calcium 8.6 mg/dL (8.4-10.2); Carbon Dioxide 23.0 mmol/L (22-30); Creatinine 1 1.95 mg/dL (0.52-1.04); EST GLOMERULAR FILTRATION RATE 29.5 ML/MIN; Glucose 207.0 mg/dL (74-106); SGOT/AST 52.0 U/L (14-36); SGPT/ALT 56.0 U/L (0-35); Total Protein 7.2 g/dL (6.3-8.2)
[2025-05-07 20:39] LABS: Potassium 5.7 mmol/L (3.5-5.1)
[2025-05-07 21:01] LABS: BASOPHIL % 0.7 % (0.1-1.2); Basophil (Absolute #) 0.05 x10^3/uL (0.01-0.08); Eosinophil (Absolute #) 0.36 x10^3/uL (0.04-0.36); Hematocrit 34.9 % (34.1-44.9); Hemoglobin 11.2 g/dL (11.2-15.7); IMMATURE GRAN # 0.02 x10^3u/L (0.001-0.031); IMMATURE GRAN % 0.3 % (0.001-0.429); Lymphocyte (Absolute #) 1.80 x10^3/uL (1.18-3.74); Mean Corpuscular Hemoglobin 31.0 pg (25.6-32.2); Mean Corpuscular Hgb Concent. 32.1 g/dL (32.2-35.5); Monocyte (Absolute #) 0.63 x10^3/uL (0.24-0.86); NUCLEATED RBC # 0.00 x10^3u/L (0.00-0.012); NUCLEATED RBC % 0.0 % (0.00-0.2); Platelet Count 218 x10^3/uL (182-369); Red Blood Count 3.61 x10^6/uL (3.93-5.22); White Blood Count 6.7 x10^3/uL (3.98-10.04)
--- NOTE | 2025-05-07 21:05 | ERPHSYRPT ---
- History of Present Illness Time Seen by Provider: 05/07/25 20:30 Source: patient Patient Subjective Stated Complaint: high potassium, 's office called her today Triage Nursing Assessment: Pt brought back in her wheelchair to ER room 4. Pt was seen at her family dr today and had lab work drawn. They called her back this evening around 7pm and informed her that her potassium level was high and that she needed to come to the hospital, so that's why she's here. Pt is supposed to take Lokelma daily and hasn't taken it in a week or so, so she feels this is probably why her potassium is high. Physician History: History as above has ckd, held her Allergies/Adverse Reactions: lisinopril Allergy (Intermediate, Verified 05/07/25 20:09) Cough Penicillins Allergy (Intermediate, Verified 05/07/25 20:09) Rash Home Medications: Aripiprazole [Abilify] 0.5 tab PO HS 08/11/23 [History] Aspirin [Aspirin EC] 81 mg PO DAILY 08/11/23 [History] Levothyroxine Sodium 175 mcg PO DAILY 08/11/23 [History] Multivitamin 1 each PO DAILY 08/11/23 [History] Amlodipine Besylate 2.5 mg PO DAILY 04/19/25 [History] Atorvastatin Calcium 40 mg PO HS 04/19/25 [History] Insulin Aspart [Novolog] 15 units SQ TID 04/19/25 [History] Insulin Glargine,Hum.rec.anlog [Basaglar Kwikpen U-100] 25 mg SQ DAILY 04/19/25 [History] Loratadine 10 mg [Claritin 10 mg] 10 mg PO DAILY 04/19/25 [History] Metoprolol Succinate 25 mg Xl* [Toprol-Xl 25MG Tablets] 50 mg PO BID 04/19/25 [History] Pregabalin 25 mg [Lyrica 25 MG] 25 mg PO TID 04/19/25 [History] Duloxetine HCl 60 mg PO DAILY 05/07/25 [History] Sodium Zirconium Cyclosilicate [Lokelma] 5 gm PO DAILY 05/07/25 [History] Hx Tetanus, Diphtheria Vaccination/Date Given: (unknown) Hx Influenza Vaccination/Date Given: Yes Hx Pneumococcal Vaccination/Date Given: No Travel Risk - International Travel Have you traveled outside of the country in past 3 weeks: No - Emerging Infectious Disease Are you exhibiting symptoms associated with any current EIDs: No - Review of Systems Constitutional: Weakness, No Fever, No Chills Eyes: No Symptoms Ears, Nose, & Throat: No Symptoms Respiratory: No Cough, No Dyspnea Cardiac: No Chest Pain, No Edema, No Syncope Abdominal/Gastrointestinal: Diarrhea, No Abdominal Pain, No Nausea, No Vomiting Genitourinary Symptoms: No Dysuria Musculoskeletal: No Back Pain, No Neck Pain Skin: No Rash Neurological: No Dizziness, No Focal Weakness, No Sensory Changes Psychological: No Symptoms Endocrine: No Symptoms All Other Systems: Reviewed and Negative - Past Medical History Pertinent Past Medical History: Yes Neurological History: Peripheral Neuropathy ENT History: No Pertinent History Cardiac History: High Cholesterol, Hypertension Respiratory History: No Pertinent History Endocrine Medical History: Diabetes Type II, Hypothyroidism, Liver Disease Musculoskeletal History: Arthritis GI Medical History: Diverticulosis History: No Pertinent History Psycho-Social History: Depression Female Reproductive Disorders: Endometriosis - Past Surgical History Past Surgical History: Yes Neuro Surgical History: No Pertinent History Cardiac: No Pertinent History Respiratory: No Pertinent History Gastrointestinal: No Pertinent History Genitourinary: No Pertinent History Musculoskeletal: Orthopedic Surgery Female Surgical History: Hysterectomy Other Surgical History: ganglion cyst removal right wrist - Social History Smoking Status: Never smoker Exposure to second hand smoke: No Drug Use: none - Social Determinants of Health Will the patient participate in the screening: Yes Do you worry about a steady place to live?: No Do you have any problems with any of the following?: No known problems In the past 12 months,have you had to go without utilities?: No Transportation Issues: No Has anyone in your support network made you feel unsafe?: No Have you or anyone in your house had to go w/o enough food: No - Nursing Vital Signs Nursing Vital Signs: Initial Vital Signs Temperature 98.1 F 05/07/25 20:07 Pulse Rate 94 H 05/07/25 20:07 Respiratory Rate 28 H 05/07/25 20:07 Blood Pressure 190/97 05/07/25 20:07 O2 Sat by Pulse Oximetry 100 05/07/25 20:07 Pain Scale Pain Intensity 7 - Physical Exam General Appearance: no apparent distress, alert Eye Exam: PERRL/EOMI, eyes nml inspection Ears, Nose, Throat Exam: normal ENT inspection, TMs normal, pharynx normal, moist mucous membranes Neck Exam: normal inspection, non-tender, supple, full range of motion Respiratory Exam: normal breath sounds, lungs clear, No respiratory distress Cardiovascular Exam: regular rate/rhythm, normal heart sounds, normal peripheral pulses Gastrointestinal/Abdomen Exam: soft, normal bowel sounds, No tenderness, No mass Back Exam: normal inspection, normal range of motion, No CVA tenderness, No vertebral tenderness Extremity Exam: normal inspection, normal range of motion, pelvis stable Neurologic Exam: alert, oriented x 3, cooperative, normal mood/affect, nml cerebellar function, nml station & gait, sensation nml, No motor deficits Skin Exam: normal color, warm, dry, No rash Lymphatic Exam: No adenopathy SpO2 Interpretation: normal SpO2: 100 Ordered Tests: Active Orders 24 hr Category Date Time Status CBC W DIFF Stat Lab 05/07/25 20:20 Completed CMP Stat Lab 05/07/25 20:20 Completed UA W/RFX UR CULTURE Stat Lab 05/07/25 20:57 Ordered Transfer Order Routine Transfer 05/07/25 Ordered Medication Summary Generic Name Dose Route Start Last Admin Trade Name Freq PRN Reason Stop Dose Admin Sodium Chloride 1,000 mls @ 999 mls/hr 05/07/25 21:10 05/07/25 21:13 Sodium Chloride 0.9% 1000 Ml IV 05/07/25 22:10 999 mls/hr .Q1H1M STA Administration Discontinued Medications Generic Name Dose Route Start Last Admin Trade Name Freq PRN Reason Stop Dose Admin Furosemide 40 mg 05/07/25 21:09 05/07/25 21:14 Furosemide 40 Mg/4 Ml Vial IV 05/07/25 21:10 40 mg STAT ONE Administration Furosemide Confirm 05/07/25 21:12 Furosemide 40 Mg/4 Ml Vial Administered 05/07/25 21:13 Dose 40 mg .ROUTE .STK-MED ONE Sodium Chloride Confirm 05/07/25 21:13 Sodium Chloride 0.9% 1000 Ml Administered 05/07/25 21:14 Dose 1,000 mls @ ud .ROUTE .STK-MED ONE Lab/Rad Data: Laboratory Result Diagrams 05/07/25 20:20 05/07/25 20:20 Laboratory Results 05/07/25 05/07/25 Range/Units 20:20 20:20 WBC 6.7 (3.98-10.04) x10^3/uL RBC 3.61 L (3.93-5.22) x10^6/uL Hgb 11.2 (11.2-15.7) g/dL Hct 34.9 (34.1-44.9) % MCV 96.7 H (79.4-94.8) fL MCH 31.0 (25.6-32.2) pg MCHC 32.1 L (32.2-35.5) g/dL RDW 13.4 (11.7-14.4) % Plt Count 218 (182-369) x10^3/uL MPV 10.3 (9.4-12.3) fL Gran % 57.6 (34.0-71.1) % Immature Gran % (Auto) 0.3 (0.001-0.429) % Nucleat RBC Rel Count 0.0 (0.00-0.2) % Eos # (Auto) 0.36 (0.04-0.36) x10^3/uL Immature Gran # (Auto) 0.02 (0.001-0.031) x10^3u/L Absolute Lymphs (auto) 1.80 (1.18-3.74) x10^3/uL Absolute Monos (auto) 0.63 (0.24-0.86) x10^3/uL Absolute Nucleated RBC 0.00 (0.00-0.012) x10^3u/L Lymphocytes % 26.7 (19.3-51.7) % Monocytes % 9.4 (4.7-12.5) % Eosinophils % 5.3 (0.7-5.8) % Basophils % 0.7 (0.1-1.2) % Absolute Granulocytes 3.87 (1.56-6.13) x10^3/uL Basophils # 0.05 (0.01-0.08) x10^3/uL Sodium 133 L (135-145) mmol/L Potassium 5.7 H (3.5-5.1) mmol/L Chloride 103 (98-107) mmol/L Carbon Dioxide 23 (22-30) mmol/L Anion Gap 12.4 (5-15) MEQ/L BUN 64 H (7-17) mg/dL Creatinine 1.95 H (0.52-1.04) mg/dL Estimated GFR 29.5 ML/MIN Glucose 207 H (74-106) mg/dL Calcium 8.6 (8.4-10.2) mg/dL Total Bilirubin 0.30 (0.2-1.3) mg/dL AST 52 H (14-36) U/L ALT 56 H (0-35) U/L Alkaline Phosphatase 123 (38-126) U/L Serum Total Protein 7.2 (6.3-8.2) g/dL Albumin 3.6 (3.5-5.0) g/dL - Progress Progress: unchanged Progress Note: 05/07/25 21:20 labs reviewed, creatine up and k 5.7 ekg reviewed nsr baseline labs added as outside provider labs not visilbe reviewed hosp will admit to tele, requesting iv ns and lasix patient agreable to plan Medical Desision Making - External Record(s) Reviewed Records reviewed as a part of evaluation & management: Inpatient - Discussion of managment Care discussed with:: hospitalist Reviewed:: Test results Agreed on:: decision to admit - Departure Clinical Impression: Hyperkalemia Condition: Stable Critical Care Time: No Referrals: LUDA HERNANDEZ MD [Primary Care Provider, INTERNAL MEDICINE] - Follow up/PCP as directed
[2025-05-07] MEDS ORDERED: Lasix 40 MG/4 ML ONE (21:12)
[2025-05-07] MEDS: Lasix 40 MG/4 ML IV ONE (21:14)
[2025-05-07 22:20] LABS: Glucose, Urine 100 mg/dL (Negative); Protein,Urine Dip 300 (Negative); WBC 0-2 /HPF (0-5)
[2025-05-08] MEDS: Lyrica 25 MG PO ONE (00:21)
[2025-05-08] MEDS: Toprol-Xl 25MG Tablets PO ONE (00:22)
[2025-05-08] MEDS: Abilify 10 MG PO ONE (00:22)
[2025-05-08] MEDS: ZOCOR 20MG PO ONE (00:30)
[2025-05-08 02:50] LABS: Calcium 8.1 mg/dL (8.4-10.2); Carbon Dioxide 24.0 mmol/L (22-30); Creatinine 1 1.75 mg/dL (0.52-1.04); EST GLOMERULAR FILTRATION RATE 33.6 ML/MIN; Potassium 5.9 mmol/L (3.5-5.1)
[2025-05-08 02:51] LABS: Glucose 205.0 mg/dL (74-106)
[2025-05-08] MEDS: Lasix 40 MG/4 ML IV ONE (05:36)
[2025-05-08] MEDS: ULTRAM 50 MG PO PRN ×2 (05:37→13:16)
--- NOTE | 2025-05-08 06:23 | PCM.HP ---
History of Present Illness - Chief Complaint Chief Complaint: high k History of Present Illness: Hyperkalemia (acute, high risk) This is an acute on chronic hyperkalemia in the setting of chronic kidney disease stage 3B/4. The acute component is suspected to be secondary to volume loss from gastrointestinal symptoms while on doxycycline. She has been treated with a 2-liter fluid bolus and two doses of IV Lasix (40 mg followed by 60 mg). Plan is to continue IV hydration as volume depletion is the suspected cause of her hyperkalemia. Will resume home Lokelma or a formulary equivalent. Left lower extremity wound (acute, uncontrolled) This was initially treated as a diabetic ulcer, but it is suspected to be more consistent with venous ulceration secondary to systemic venous obstruction, complicated by obesity. She has been initiated on chlorthalidone 25 mg for concurrent benefits of hypertension control, diuretic therapy for venous disease, and the associated side effect of reducing serum potassium. She would benefit from a lower extremity venous reflux study and consideration for a deep venous evaluation to treat her venous disease, which is consistent with CEAP class C6 disease. Hypertension (chronic, uncontrolled) Will continue Toprol XL at an increased dose of 50 mg BID. Holding home amlodipine 2.5 mg. Initiated a thiazide diuretic, chlorthalidone 25 mg, for its antihypertensive effect, associated hypokalemia to counteract her hyperkalemia, and diuretic t herapy to reduce symptoms of lower extremity venous congestion. Diabetes mellitus (chronic, uncontrolled) Resumed home basal-bolus regimen. Hypothyroidism (chronic) Resumed home levothyroxine 175 mcg qday Subjective This is a 59-year-old female who was seen by her primary care physician today, where routine labs revealed an elevated potassium level of 5.7. She has a known history of hyperkalemia secondary to chronic kidney disease and is typically on chronic Lokelma therapy. However, she has not taken this medication for the past week due to persistent loose stools, which she attributes to doxycycline antibiotic therapy for a lower extremity wound ulcer. She notes that the wound ulcer has not shown significant improvement over the past week on antibiotics. She also reports reduced oral intake while experiencing the loose stools. She denies any recent fevers or chills. Home medications Glargine 25 units qday Novolog 15 units TID Toprol XL 25 mg BID Amlodipine 2.5 mg qday Aspirin 81 mg qday Atorvastatin 40 mg qday Abilify 0.5 mg qHS Duloxetine 60 mg qday Sodium zirconium cyclosilicate (Lokelma) 5 mg qday Levothyroxine 175 mcg qday Physical examination Vital Signs Blood pressure: 152/72 mmHg Heart rate: 86 beats per minute Respiratory rate: 18 breaths per minute O2 Saturation: 96% on room air Temperature: 96.9F Height: 5'7" Weight: 227 lbs BMI: 35.6 kg/m Neurological Alert and oriented to person, place, and time. Thought processes and content are normal. She is in no acute distress. Cardiovascular Heart rate is not tachycardic. Respiratory Respiratory rate is not tachypneic. Abdominal Abdomen is not distended. Musculoskeletal The left lower extremity has a weeping, superficial ulcer on the medial malle olus. Lab and Studies Reviewed Basic Metabolic Panel (05/07/2025): Sodium 133, Potassium 5.7, Chloride 103, BUN 64, Creatinine 1.95, AST 52, ALT 56, Albumin 3.6. Independently reviewed and interpreted by me. Complete Blood Count (05/07/2025): Hemoglobin 11.2, Hematocrit 34.9, Platelets 218. Independently reviewed and interpreted by me. EKG (05/07/2025): Sinus rhythm. Independently reviewed and interpreted by me. Notes reviewed Emergency Room documentation from 05/07/2025 was reviewed. The note documented elevated creatinine and a potassium of 5.7. The EKG at that time noted sinus r hythm. MDM Summary 1. Number and Complexity of Problems Addressed (CoPA): High Complexity: The patient presents with multiple chronic illnesses (CKD, hypertension, diabetes) with a severe exacerbation of one ([id number] hyperkalemia, potassium 5.7), posing a threat to bodily function. Additionally, she has an undiagnosed new problem (leg ulcer etiology uncertain) and uncontrolled hypertension, requiring complex management adjustments. 2. Amount and/or Complexity of Data to be Reviewed and Analyzed (Data): Extensive: The consultation required review of multiple external records (PCP labs, ER documentation), independent interpretation of multiple recent lab panels (BMP, CBC), and an EKG. Decision-making was based on integrating these data points to form a complex management plan. 3. Risk of Complications, Morbidity, and/or Mortality (Risk): High Risk: The management plan involves the use of high-risk IV medications including furosemide (Lasix). The patient's presentation with [id number] hyperkalemia and acute kidney injury represents an acute illness that poses a threat to life or bodily function. The decision was made to escalate care with IV fluids and diuretics. - Review of Systems Constitutional: No Fever, No Chills Eyes: No Symptoms Ears, Nose, & Throat: No Symptoms Respiratory: No Symptoms Cardiac: No Symptoms Abdominal/Gastrointestinal: Diarrhea Genitourinary Symptoms: No Symptoms Skin: Skin Lesions Neurological: No Symptoms Psychological: No Symptoms Endocrine: No Symptoms Hematologic/Lymphatic: No Symptoms Immunological/Allergic: No Symptoms Medications & Allergies Home Medications: Home Medication List Aripiprazole [Abilify] 0.5 tab PO HS 08/11/23 [History Confirmed 05/07/25] Aspirin [Aspirin EC] 81 mg PO DAILY 08/11/23 [History Confirmed 05/07/25] Levothyroxine Sodium 175 mcg PO DAILY 08/11/23 [History Confirmed 05/07/25] Multivitamin 1 each PO DAILY 08/11/23 [History Confirmed 05/07/25] Amlodipine Besylate 2.5 mg PO DAILY 04/19/25 [History Confirmed 05/07/25] Atorvastatin Calcium 40 mg PO HS 04/19/25 [History Confirmed 05/07/25] Insulin Aspart [Novolog] 15 units SQ TID 04/19/25 [History Confirmed 05/07/25] Insulin Glargine,Hum.rec.anlog [Basaglar Kwikpen U-100] 25 mg SQ DAILY 04/19/25 [History Confirmed 05/07/25] Loratadine 10 mg [Claritin 10 mg] 10 mg PO DAILY 04/19/25 [History Confirmed 05/07/25] Metoprolol Succinate 25 mg Xl* [Toprol-Xl 25MG Tablets] 50 mg PO BID 04/19/25 [History Confirmed 05/07/25] Pregabalin 25 mg [Lyrica 25 MG] 25 mg PO TID 04/19/25 [History Confirmed 05/07/25] Duloxetine HCl 60 mg PO DAILY 05/07/25 [History Confirmed 05/07/25] Sodium Zirconium Cyclosilicate [Lokelma] 5 gm PO DAILY 05/07/25 [History Confirmed 05/07/25] Allergies/Adverse Reactions: Allergies Allergy/AdvReac Type Severity Reaction Status Date / Time lisinopril Allergy Intermediate Cough Verified 05/07/25 20:09 Penicillins Allergy Intermediate Rash Verified 05/07/25 20:09 - Past Medical History Past Medical History: Yes Neurological History: Peripheral Neuropathy ENT History: No Pertinent History Cardiac History: High Cholesterol, Hypertension Respiratory History: No Pertinent History Endocrine Medical History: Diabetes Type II, Hypothyroidism, Liver Disease Musculoskelatal History: Arthritis GI Medical History: Diverticulosis History: No Pertinent History Pyscho-Social History: Depression Reproductive Disorders: Endometriosis - Past Surgical History Past Surgical History: Yes Neuro Surgical History: No Pertinent History Cardiac History: No Pertinent History Respiratory Surgery: No Pertinent History GI Surgical History: No Pertinent History Genitourinary Surgical Hx: No Pertinent History Musculskeletal Surgical Hx: Orthopedic Surgery Female Surgical History: Hysterectomy Other Surgical History: ganglion cyst removal right wrist - Social History Smoking Status: Never smoker Exposure to second hand smoke: No Alcohol: None Drug Use: none - Social Determinants of Health Will the patient participate in the screening: Yes Do you worry about a steady place to live?: No Do you have any problems with any of the following?: No known problems In the past 12 months,have you had to go without utilities?: No Have you or anyone in your house had to go without enough: No Transportation Issues: No Has anyone in your support network made you feel unsafe?: No Does the patient want assistance with any of the above?: No - Physical Exam Vital Signs: Vital Signs - 24 hr Temp Pulse Resp BP BP Pulse Ox 05/08/25 04:00 97.9 F 67 16 135/63 98 05/07/25 21:58 96.9 F 86 22 152/73 96 05/07/25 21:22 100 05/07/25 21:22 84 26 H 175/113 99 11/07/25 21:20 83 21 98 05/07/25 21:10 82 19 98 05/07/25 21:03 82 20 98 05/07/25 20:31 82 19 132/93 97 05/07/25 20:08 85 23 190/97 98 05/07/25 20:07 98.1 F 96 H 28 H 190/97 97 Wound Assessment: Skin/Wound Assessment Wound/Incision Assessment Start: 05/07/25 22:55 Text: Status: Active Freq: Q6H Protocol: Document 05/08/25 02:00 (Rec: 05/08/25 02:07 [id number]) Wound/Incision Assessment Left Lower Anterior Calf Wound Assessment Admission Wound Type fluid filled blisters Dressing Status Dry & Intact Drainage Amount None Drainage Odor None/Absent Comment blisters Wound Photo Photo Taken No Results - Labs Lab/Micro Results: Lab Results-Last 24 Hours 05/07/25 05/07/25 05/07/25 Range/Units 20:20 20:20 22:12 WBC 6.7 (3.98-10.04) x10^3/uL RBC 3.61 L (3.93-5.22) x10^6/uL Hgb 11.2 (11.2-15.7) g/dL Hct 34.9 (34.1-44.9) % MCV 96.7 H (79.4-94.8) fL MCH 31.0 (25.6-32.2) pg MCHC 32.1 L (32.2-35.5) g/dL RDW 13.4 (11.7-14.4) % Plt Count 218 (182-369) x10^3/uL MPV 10.3 (9.4-12.3) fL Gran % 57.6 (34.0-71.1) % Immature Gran % (Auto) 0.3 (0.001-0.429) % Nucleat RBC Rel Count 0.0 (0.00-0.2) % Eos # (Auto) 0.36 (0.04-0.36) x10^3/uL Immature Gran # (Auto) 0.02 (0.001-0.031) x10^3u/L Absolute Lymphs (auto) 1.80 (1.18-3.74) x10^3/uL Absolute Monos (auto) 0.63 (0.24-0.86) x10^3/uL Absolute Nucleated RBC 0.00 (0.00-0.012) x10^3u/L Lymphocytes % 26.7 (19.3-51.7) % Monocytes % 9.4 (4.7-12.5) % Eosinophils % 5.3 (0.7-5.8) % Basophils % 0.7 (0.1-1.2) % Absolute Granulocytes 3.87 (1.56-6.13) x10^3/uL Basophils # 0.05 (0.01-0.08) x10^3/uL Sodium 133 L (135-145) mmol/L Potassium 5.7 H (3.5-5.1) mmol/L Chloride 103 (98-107) mmol/L Carbon Dioxide 23 (22-30) mmol/L Anion Gap 12.4 (5-15) MEQ/L BUN 64 H (7-17) mg/dL Creatinine 1.95 H (0.52-1.04) mg/dL Estimated GFR 29.5 ML/MIN Glucose 207 H (74-106) mg/dL Calcium 8.6 (8.4-10.2) mg/dL Total Bilirubin 0.30 (0.2-1.3) mg/dL AST 52 H (14-36) U/L ALT 56 H (0-35) U/L Alkaline Phosphatase 123 (38-126) U/L Serum Total Protein 7.2 (6.3-8.2) g/dL Albumin 3.6 (3.5-5.0) g/dL Urine Color Yellow (Yellow) Urine Appearance Clear (Clear) Urine pH 7.0 (4.6-8.0) Ur Specific [place] 1.010 (1.005-1.030) Urine Protein 300 A (Negative) Urine Glucose (UA) 100 A (Negative) mg/dL Urine Ketones Negative (Negative) Urine Blood Moderate A (Negative) Urine Nitrite Negative (Negative) Urine Bilirubin Negative (Negative) Urine Urobilinogen 0.2 (0.2) mg/dL Ur Leukocyte Esterase Negative (Negative) U Hyaline Cast (Auto) NONE SEEN (0-2) /LPF Urine Microscopic RBC 6-10 A (0-5) /HPF Urine Microscopic WBC 0-2 (0-5) /HPF Ur Epithelial Cells None Seen (None Seen) /HPF Urine Bacteria None Seen (None Seen) /HPF Urine Culture Reflexed NO (NO) 05/08/25 Range/Units 02:40 WBC (3.98-10.04) x10^3/uL RBC (3.93-5.22) x10^6/uL Hgb (11.2-15.7) g/dL Hct (34.1-44.9) % MCV (79.4-94.8) fL MCH (25.6-32.2) pg MCHC (32.2-35.5) g/dL RDW (11.7-14.4) % Plt Count (182-369) x10^3/uL MPV (9.4-12.3) fL Gran % (34.0-71.1) % Immature Gran % (Auto) (0.001-0.429) % Nucleat RBC Rel Count (0.00-0.2) % Eos # (Auto) (0.04-0.36) x10^3/uL Immature Gran # (Auto) (0.001-0.031) x10^3u/L Absolute Lymphs (auto) (1.18-3.74) x10^3/uL Absolute Monos (auto) (0.24-0.86) x10^3/uL Absolute Nucleated RBC (0.00-0.012) x10^3u/L Lymphocytes % (19.3-51.7) % Monocytes % (4.7-12.5) % Eosinophils % (0.7-5.8) % Basophils % (0.1-1.2) % Absolute Granulocytes (1.56-6.13) x10^3/uL Basophils # (0.01-0.08) x10^3/uL Sodium 131 L (135-145) mmol/L Potassium 5.9 H (3.5-5.1) mmol/L Chloride 105 (98-107) mmol/L Carbon Dioxide 24 (22-30) mmol/L Anion Gap 7.8 (5-15) MEQ/L BUN 59 H (7-17) mg/dL Creatinine 1.75 H (0.52-1.04) mg/dL Estimated GFR 33.6 ML/MIN Glucose 205 H (74-106) mg/dL Calcium 8.1 L (8.4-10.2) mg/dL Total Bilirubin (0.2-1.3) mg/dL AST (14-36) U/L ALT (0-35) U/L Alkaline Phosphatase (38-126) U/L Serum Total Protein (6.3-8.2) g/dL Albumin (3.5-5.0) g/dL Urine Color (Yellow) Urine Appearance (Clear) Urine pH (4.6-8.0) Ur Specific [place] (1.005-1.030) Urine Protein (Negative) Urine Glucose (UA) (Negative) mg/dL Urine Ketones (Negative) Urine Blood (Negative) Urine Nitrite (Negative) Urine Bilirubin (Negative) Urine Urobilinogen (0.2) mg/dL Ur Leukocyte Esterase (Negative) U Hyaline Cast (Auto) (0-2) /LPF Urine Microscopic RBC (0-5) /HPF Urine Microscopic WBC (0-5) /HPF Ur Epithelial Cells (None Seen) /HPF Urine Bacteria (None Seen) /HPF Urine Culture Reflexed (NO) - Other Procedures and Tests Respiratory Therapy 05/07/25 22:19 BiPap/CPAP ROUTINE Telemedicine Encounter - Telemedicine Encounter Telemedicine Encounter: "The entirety of this encounter was performed via Telemedicine" This visit was performed using real-time audio and video connection between my location and thepatients locationwith the assistance of a surrogateat the patients location. Written or verbal consent was obtained from the patient/guardian to perform this [facility] technology. Any patient questions regarding the telemedicine interaction were answered.
[2025-05-08] MEDS: Cymbalta 30 MG Capsule PO SCH (08:06)
[2025-05-08] MEDS: CHLORTHALIDONE PO SCH (08:06)
[2025-05-08] MEDS: Lyrica 25 MG PO SCH (08:07)
[2025-05-08] MEDS: SYNTHROID 75 MCG PO SCH (08:07)
[2025-05-08] MEDS: SYNTHROID 100 MCG PO SCH (08:07)
[2025-05-08] MEDS: CLARITIN 10 MG PO SCH (08:07)
[2025-05-08] MEDS: VELTASSA PO STA (08:08)
[2025-05-08 08:11] LABS: Hematocrit 33.2 % (34.1-44.9); Hemoglobin 10.7 g/dL (11.2-15.7); Mean Corpuscular Hemoglobin 31.1 pg (25.6-32.2); Mean Corpuscular Hgb Concent. 32.2 g/dL (32.2-35.5); Platelet Count 212 x10^3/uL (182-369); Red Blood Count 3.44 x10^6/uL (3.93-5.22); White Blood Count 6.0 x10^3/uL (3.98-10.04)
[2025-05-08] MEDS: Lantus Insulin SQ SCH (08:17)
[2025-05-08] MEDS: HUMALOG SQ SCH (08:17)
[2025-05-08] MEDS: ECOTRIN 81 MG PO SCH (08:21)
[2025-05-08] MEDS: Acidophilus TABLET PO SCH (08:49)
[2025-05-08] MEDS: VANCOMYCIN 2 GRAM/400 ML BAG 2 GM/400 ML PIGGYBACK IV SCH (08:49)
[2025-05-08] MEDS: PHARMACY DOSING REQUIRED: VANCOMYCIN IV STA (09:09)
--- NOTE | 2025-05-08 10:04 | PCM.NOTE ---
Date and Time: 05/08/25 0957 Subjective Assessment: 05/07/25 This is a 59-year-old female with a known history of chronic kidney disease complicated by recurrent hyperkalemia, who was referred to the hospital by her primary care physician after routine laboratory testing revealed a potassium level of 5.7 mmol/L. She typically manages her hyperkalemia with chronic Lokelma therapy but has not taken the medication for the past week due to persistent loose stools, which she attributes to recent doxycycline use prescribed for a lower extremity wound ulcer. The patient reports that the wound has not shown significant improvement despite antibiotic therapy and notes decreased oral intake over the past week. She denies any recent fevers or chills. On 05/08/25, the patient is resting comfortably in bed. Repeat laboratory results show a potassium of 5.9 mmol/L and a creatinine of 1.75 mg/dL, elevated from her baseline of 1.29 mg/dL, consistent with acute kidney injury superimposed on chronic kidney disease. Serum calcium is low at 8.1 mg/dL; calcium carbonate (Tums) has been initiated twice daily. Veltassa has been administered for hyperkalemia, and normal saline is infusing at 100 mL/hr to support renal function. Mild hyponatremia is present with sodium at 131 mmol/L, and this will continue to be monitored. Antibiotic therapy has been initiated for left lower extremity cellulitis. Doxycycline was discontinued due to gastrointestinal side effects, and probiotics have been started. A wound culture from the affected leg has been obtained for further evaluation. The patient remains hemodynamically stable, is being monitored on telemetry, and ongoing lab monitoring will continue to assess for improvement. She currently denies any new or concerning symptoms. - Review of Systems Constitutional: No Fever, No Chills Eyes: No Symptoms Ears, Nose, & Throat: No Symptoms Respiratory: No Cough, No Short Of Breath Cardiac: No Chest Pain, No Edema, No Syncope Abdominal/Gastrointestinal: Diarrhea, No Abdominal Pain, No Nausea, No Vomiting Genitourinary Symptoms: No Dysuria Musculoskeletal: No Back Pain, No Neck Pain Skin: Cellulitis (LLE), Skin Lesions (LLE wound), No Rash Neurological: No Dizziness, No Focal Weakness, No Sensory Changes Psychological: No Symptoms Endocrine: No Symptoms Hematologic/Lymphatic: No Symptoms Immunological/Allergic: No Symptoms Objective Exam General Appearance: no apparent distress, alert, obese Neurologic Exam: alert, oriented x 3, cooperative, normal mood/affect, nml cerebellar function, sensation nml, No motor deficits Skin Exam: normal color, warm, dry, other (LLE cellulitis with wound and elevated blisters) Wound Assessment: Skin/Wound Assessment Wound/Incision Assessment Start: 05/07/25 22:55 Text: Status: Active Freq: Q6H Protocol: Document 05/08/25 07:40 TS (Rec: 05/08/25 07:51 TS [id number]) Wound/Incision Assessment Left Lower Anterior Calf Wound Assessment Admission Wound Type fluid filled blisters Dressing Status Dry & Intact Drainage Amount None Drainage Odor None/Absent Comment redened blisters open to air Wound Photo Photo Taken No Eye Exam: PERRL, EOMI, eyes nml inspection Ears, Nose, Throat Exam: normal ENT inspection, pharynx normal, moist mucous membranes Neck Exam: normal inspection, non-tender, supple, full range of motion Respiratory Exam: normal breath sounds, lungs clear, No respiratory distress Cardiovascular Exam: regular rate/rhythm, normal heart sounds Gastrointestinal/Abdomen Exam: soft, No tenderness, No mass Extremity Exam: normal inspection, normal range of motion Back Exam: normal inspection, normal range of motion, No CVA tenderness, No vertebral tenderness Pelvic Exam: deferred Rectal Exam: deferred Objective Data Vital Signs: Vital Signs - 24 hr Temp Pulse Resp BP BP Pulse Ox 05/08/25 07:36 18 05/08/25 06:57 97.7 F 84 18 152/70 96 05/08/25 04:00 97.9 F 67 16 135/63 98 05/07/25 21:58 96.9 F 86 22 152/73 96 05/07/25 21:22 100 05/07/25 21:22 84 26 H 175/113 99 05/07/25 21:20 83 21 98 05/07/25 21:10 82 19 98 05/07/25 21:03 82 20 98 05/07/25 20:31 82 19 132/93 97 05/07/25 20:08 85 23 190/97 98 05/07/25 20:07 98.1 F 96 H 28 H 190/97 97 Pain Assessment - Last Documented Pain Intensity 2 Intake and Output: Intake & Output 05/05/25 05/06/25 05/07/2525 11:59 11:59 11:59 11:59 Intake Total 1960 Output Total 4700 Balance -2740 Weight 227 kg Lab Results: Lab Results-Last 24 Hours 05/07/25 05/07/25 05/07/25 Range/Units 20:20 20:20 22:12 WBC 6.7 (3.98-10.04) x10^3/uL RBC 3.61 L (3.93-5.22) x10^6/uL Hgb 11.2 (11.2-15.7) g/dL Hct 34.9 (34.1-44.9) % MCV 96.7 H (79.4-94.8) fL MCH 31.0 (25.6-32.2) pg MCHC 32.1 L (32.2-35.5) g/dL RDW 13.4 (11.7-14.4) % Plt Count 218 (182-369) x10^3/uL MPV 10.3 (9.4-12.3) fL Gran % 57.6 (34.0-71.1) % Immature Gran % (Auto) 0.3 (0.001-0.429) % Nucleat RBC Rel Count 0.0 (0.00-0.2) % Eos # (Auto) 0.36 (0.04-0.36) x10^3/uL Immature Gran # (Auto) 0.02 (0.001-0.031) x10^3u/L Absolute Lymphs (auto) 1.80 (1.18-3.74) x10^3/uL Absolute Monos (auto) 0.63 (0.24-0.86) x10^3/uL Absolute Nucleated RBC 0.00 (0.00-0.012) x10^3u/L Lymphocytes % 26.7 (19.3-51.7) % Monocytes % 9.4 (4.7-12.5) % Eosinophils % 5.3 (0.7-5.8) % Basophils % 0.7 (0.1-1.2) % Absolute Granulocytes 3.87 (1.56-6.13) x10^3/uL Basophils # 0.05 (0.01-0.08) x10^3/uL Sodium 133 L (135-145) mmol/L Potassium 5.7 H (3.5-5.1) mmol/L Chloride 103 (98-107) mmol/L Carbon Dioxide 23 (22-30) mmol/L Anion Gap 12.4 (5-15) MEQ/L BUN 64 H (7-17) mg/dL Creatinine 1.95 H (0.52-1.04) mg/dL Estimated GFR 29.5 ML/MIN Glucose 207 H (74-106) mg/dL POC Glucometer (74 to 106) mg/dL Hemoglobin A1c (4.5-6.0) % Calcium 8.6 (8.4-10.2) mg/dL Total Bilirubin 0.30 (0.2-1.3) mg/dL AST 52 H (14-36) U/L ALT 56 H (0-35) U/L Alkaline Phosphatase 123 (38-126) U/L Serum Total Protein 7.2 (6.3-8.2) g/dL Albumin 3.6 (3.5-5.0) g/dL Urine Color Yellow (Yellow) Urine Appearance Clear (Clear) Urine pH 7.0 (4.6-8.0) Ur Specific [place] 1.010 (1.005-1.030) Urine Protein 300 A (Negative) Urine Glucose (UA) 100 A (Negative) mg/dL Urine Ketones Negative (Negative) Urine Blood Moderate A (Negative) Urine Nitrite Negative (Negative) Urine Bilirubin Negative (Negative) Urine Urobilinogen 0.2 (0.2) mg/dL Ur Leukocyte Esterase Negative (Negative) U Hyaline Cast (Auto) NONE SEEN (0-2) /LPF Urine Microscopic RBC 6-10 A (0-5) /HPF Urine Microscopic WBC 0-2 (0-5) /HPF Ur Epithelial Cells None Seen (None Seen) /HPF Urine Bacteria None Seen (None Seen) /HPF Urine Culture Reflexed NO (NO) 05/08/25 05/08/25 05/08/25 Range/Units 02:40 07:05 08:00 WBC 6.0 (3.98-10.04) x10^3/uL RBC 3.44 L (3.93-5.22) x10^6/uL Hgb 10.7 L (11.2-15.7) g/dL Hct 33.2 L (34.1-44.9) % MCV 96.5 H (79.4-94.8) fL MCH 31.1 (25.6-32.2) pg MCHC 32.2 (32.2-35.5) g/dL RDW 13.5 (11.7-14.4) % Plt Count 212 (182-369) x10^3/uL MPV 9.9 (9.4-12.3) fL Gran % (34.0-71.1) % Immature Gran % (Auto) (0.001-0.429) % Nucleat RBC Rel Count (0.00-0.2) % Eos # (Auto) (0.04-0.36) x10^3/uL Immature Gran # (Auto) (0.001-0.031) x10^3u/L Absolute Lymphs (auto) (1.18-3.74) x10^3/uL Absolute Monos (auto) (0.24-0.86) x10^3/uL Absolute Nucleated RBC (0.00-0.012) x10^3u/L Lymphocytes % (19.3-51.7) % Monocytes % (4.7-12.5) % Eosinophils % (0.7-5.8) % Basophils % (0.1-1.2) % Absolute Granulocytes (1.56-6.13) x10^3/uL Basophils # (0.01-0.08) x10^3/uL Sodium 131 L (135-145) mmol/L Potassium 5.9 H (3.5-5.1) mmol/L Chloride 105 (98-107) mmol/L Carbon Dioxide 24 (22-30) mmol/L Anion Gap 7.8 (5-15) MEQ/L BUN 59 H (7-17) mg/dL Creatinine 1.75 H (0.52-1.04) mg/dL Estimated GFR 33.6 ML/MIN Glucose 205 H (74-106) mg/dL POC Glucometer 178 H (74 to 106) mg/dL Hemoglobin A1c (4.5-6.0) % Calcium 8.1 L (8.4-10.2) mg/dL Total Bilirubin (0.2-1.3) mg/dL AST (14-36) U/L ALT (0-35) U/L Alkaline Phosphatase (38-126) U/L Serum Total Protein (6.3-8.2) g/dL Albumin (3.5-5.0) g/dL Urine Color (Yellow) Urine Appearance (Clear) Urine pH (4.6-8.0) Ur Specific [place] (1.005-1.030) Urine Protein (Negative) Urine Glucose (UA) (Negative) mg/dL Urine Ketones (Negative) Urine Blood (Negative) Urine Nitrite (Negative) Urine Bilirubin (Negative) Urine Urobilinogen (0.2) mg/dL Ur Leukocyte Esterase (Negative) U Hyaline Cast (Auto) (0-2) /LPF Urine Microscopic RBC (0-5) /HPF Urine Microscopic WBC (0-5) /HPF Ur Epithelial Cells (None Seen) /HPF Urine Bacteria (None Seen) /HPF Urine Culture Reflexed (NO) 05/08/25 Range/Units 08:00 WBC (3.98-10.04) x10^3/uL RBC (3.93-5.22) x10^6/uL Hgb (11.2-15.7) g/dL Hct (34.1-44.9) % MCV (79.4-94.8) fL MCH (25.6-32.2) pg MCHC (32.2-35.5) g/dL RDW (11.7-14.4) % Plt Count (182-369) x10^3/uL MPV (9.4-12.3) fL Gran % (34.0-71.1) % Immature Gran % (Auto) (0.001-0.429) % Nucleat RBC Rel Count (0.00-0.2) % Eos # (Auto) (0.04-0.36) x10^3/uL Immature Gran # (Auto) (0.001-0.031) x10^3u/L Absolute Lymphs (auto) (1.18-3.74) x10^3/uL Absolute Monos (auto) (0.24-0.86) x10^3/uL Absolute Nucleated RBC (0.00-0.012) x10^3u/L Lymphocytes % (19.3-51.7) % Monocytes % (4.7-12.5) % Eosinophils % (0.7-5.8) % Basophils % (0.1-1.2) % Absolute Granulocytes (1.56-6.13) x10^3/uL Basophils # (0.01-0.08) x10^3/uL Sodium (135-145) mmol/L Potassium (3.5-5.1) mmol/L Chloride (98-107) mmol/L Carbon Dioxide (22-30) mmol/L Anion Gap (5-15) MEQ/L BUN (7-17) mg/dL Creatinine (0.52-1.04) mg/dL Estimated GFR ML/MIN Glucose (74-106) mg/dL POC Glucometer (74 to 106) mg/dL Hemoglobin A1c 7.36 H (4.5-6.0) % Calcium (8.4-10.2) mg/dL Total Bilirubin (0.2-1.3) mg/dL AST (14-36) U/L ALT (0-35) U/L Alkaline Phosphatase (38-126) U/L Serum Total Protein (6.3-8.2) g/dL Albumin (3.5-5.0) g/dL Urine Color (Yellow) Urine Appearance (Clear) Urine pH (4.6-8.0) Ur Specific [place] (1.005-1.030) Urine Protein (Negative) Urine Glucose (UA) (Negative) mg/dL Urine Ketones (Negative) Urine Blood (Negative) Urine Nitrite (Negative) Urine Bilirubin (Negative) Urine Urobilinogen (0.2) mg/dL Ur Leukocyte Esterase (Negative) U Hyaline Cast (Auto) (0-2) /LPF Urine Microscopic RBC (0-5) /HPF Urine Microscopic WBC (0-5) /HPF Ur Epithelial Cells (None Seen) /HPF Urine Bacteria (None Seen) /HPF Urine Culture Reflexed (NO) Medications: Medications Generic Name Dose Route Start Last Admin Trade Name Freq PRN Reason Stop Dose Admin Acetaminophen 1,000 mg 05/08/25 07:32 Acetaminophen 500 Mg Tablet PO 06/07/25 07:31 Q8H PRN PRN PAIN, FEVER, HEADACHE Aripiprazole 7.5 mg 05/08/25 22:00 Aripiprazole 10 Mg Tablet PO 06/07/25 21:59 HS MASON Aspirin 81 mg 05/08/25 10:00 05/08/25 08:21 Aspirin 81 Mg Tablet.Ec PO 06/07/25 09:59 81 mg DAILY MASON Administration Chlorthalidone 25 mg 05/08/25 10:00 05/08/25 08:06 Chlorthalidone 25 Mg Tablet PO 06/07/25 09:59 25 mg DAILY MASON Administration Duloxetine HCl 60 mg 05/08/25 10:00 05/08/25 08:06 Duloxetine Hcl 30 Mg Cap PO 06/07/25 09:59 60 mg DAILY MASON Administration Sodium Chloride 1,000 mls @ 100 mls/hr 05/08/25 07:00 05/08/25 06:47 Sodium Chloride 0.9% 1000 Ml IV 05/08/25 17:00 100 mls/hr .Q10H MASON Administration Vancomycin HCl 2 gm in 400 mls @ 200 mls/hr 05/08/25 10:00 05/08/25 08:49 Vancomycin 2 Gram/400 Ml Bag IV 06/07/25 09:59 200 mls/hr Q18H MASON Administration Insulin Glargine 25 unit 05/08/25 10:00 05/08/25 08:17 Insulin Glargine 1 Unit SQ 06/07/25 09:59 25 unit DAILY MASON Administration Insulin Human Lispro 15 unit 05/08/25 08:00 05/08/25 08:17 Insulin Lispro 1 Unit SQ 06/07/25 07:59 15 unit TIDWMEALS MASON Administration Lactobacillus Acidophilus 1 tab 05/08/25 10:00 05/08/25 08:49 Lactobacillus Acidophilus 1 Tab Tablet PO 06/07/25 09:59 1 tab DAILY MASON Administration Levothyroxine Sodium 100 mcg 05/08/25 10:00 05/08/25 08:07 Levothyroxine Sodium 100 Mcg Tablet PO 06/07/25 09:59 100 mcg DAILY MASON Administration Levothyroxine Sodium 75 mcg 05/08/25 10:00 05/08/25 08:07 Levothyroxine Sodium 75 Mcg Tablet PO 06/07/25 09:59 75 mcg DAILY MASON Administration Loratadine 10 mg 05/08/25 10:00 05/08/25 08:07 Loratadine 10 Mg Tablet PO 06/07/25 09:59 10 mg DAILY MASON Administration Pregabalin 25 mg 05/08/25 10:00 05/08/25 08:07 Pregabalin 25 Mg Capsule PO 06/07/25 09:59 25 mg TID MASON Administration Simvastatin 40 mg 05/08/25 22:00 Simvastatin 20 Mg Tablet PO 06/07/25 21:59 HS MASON Tramadol HCl 50 mg 05/08/25 07:32 Tramadol Hcl 50 Mg Tablet PO 06/07/25 05:17 BID PRN PRN PAIN Discontinued Medications Generic Name Dose Route Start Last Admin Trade Name Keny PRN Reason Stop Dose Admin Aripiprazole 7.5 mg 05/08/25 00:05 05/08/25 00:22 Aripiprazole 10 Mg Tablet PO 05/08/25 00:06 7.5 mg HS ONE Administration Furosemide 40 mg 05/07/25 21:09 05/07/25 21:14 Furosemide 40 Mg/4 Ml Vial IV 05/07/25 21:10 40 mg STAT ONE Administration Furosemide Confirm 05/07/25 21:12 Furosemide 40 Mg/4 Ml Vial Administered 05/07/25 21:13 Dose 40 mg .ROUTE .STK-MED ONE Furosemide 60 mg 05/08/25 05:22 05/08/25 05:36 Furosemide 40 Mg/4 Ml Vial IV 05/08/25 05:23 60 mg STAT ONE Administration Sodium Chloride 1,000 mls @ 999 mls/hr 05/07/25 21:10 05/07/25 21:13 Sodium Chloride 0.9% 1000 Ml IV 05/07/25 22:10 999 mls/hr .Q1H1M STA Administration Sodium Chloride Confirm 05/07/25 21:13 Sodium Chloride 0.9% 1000 Ml Administered 05/07/25 21:14 Dose 1,000 mls @ ud .ROUTE .STK-MED ONE Sodium Chloride 1,000 mls @ 999 mls/hr 05/08/25 05:23 05/08/25 05:37 Sodium Chloride 0.9% 1000 Ml IV 05/08/25 06:23 999 mls/hr .Q1H1M STA Administration Metoprolol Succinate 50 mg 05/08/25 00:09 05/08/25 00:22 Metoprolol Succinate 25 Mg Xl Tab PO 05/08/25 00:10 50 mg STAT ONE Administration Non-Formulary Medication 1 each 05/08/25 08:19 05/08/25 09:09 Pharmacy Dose Request: Vancomycin 1 Each IV 05/08/25 08:20 1 each STAT STA Administration Patiromer 16.8 gm 05/08/25 07:26 05/08/25 08:08 Patiromer Calcium Sorbitex 8.4 Gm Powd.Pack PO 05/08/25 07:27 16.8 gm STAT STA Administration Pregabalin 25 mg 05/08/25 00:10 05/08/25 00:21 Pregabalin 25 Mg Capsule PO 05/08/25 00:11 25 mg BID ONE Administration Simvastatin 40 mg 05/08/25 00:11 05/08/25 00:30 Simvastatin 20 Mg Tablet PO 05/08/25 00:12 Not Given HS ONE Tramadol HCl 50 mg 05/08/25 05:18 05/08/25 05:37 Tramadol Hcl 50 Mg Tablet PO 06/07/25 09:59 50 mg BID PRN Administration PAIN Multi-Disciplinary Progress Notes: Multi-Disciplinary Progress Notes 05/08/25 08:32 Pharmacy Note by Kamron Gonzalez Vancomycin dosed at 2gm iv q18h. Will watch creat and order trough later. Initialized on 05/08/25 08:32 - END OF NOTE Assessment/Plan (1) Hyperkalemia Current Visit: Yes Status: Acute Assessment & Plan: - K+ 5.9- trend - Veltassa started PO - tele - Patient reports she has not been taking her Lokelma at home and has a history of chronic hyperkalemia. - Lasix IV gave in ER and on admission last night Code(s): E87.5 - HYPERKALEMIA (2) Cellulitis of left lower extremity Current Visit: Yes Status: Acute Assessment & Plan: - Was on doxycycline at home and this caused diarrhea for patient. Left lower extremity cellulitis and wound has not improved since being on this antibiotic antibiotics stopped. - Start vancomycin IV. - Wound culture obtained today. - CBC reviewed Code(s): L03.116 - CELLULITIS OF LEFT LOWER LIMB (3) Hypocalcemia Current Visit: Yes Status: Acute Assessment & Plan: - Ca+ 8.1 - TUMS BID started Code(s): E83.51 - HYPOCALCEMIA (4) LEATHA (acute kidney injury) Current Visit: Yes Status: Acute Assessment & Plan: - CReat 1.75- Baseline 1.29 - BNP reviewed - IVF - Stop chlorthalidone for now - Lasix gave in ER and on admission Code(s): N17.9 - ACUTE KIDNEY FAILURE, UNSPECIFIED (5) Diarrhea Current Visit: Yes Status: Acute Assessment & Plan: - 2:2 doxycycline - Probiotics - Consider stool for c-diff Code(s): R19.7 - DIARRHEA, UNSPECIFIED (6) 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 - Started Humalog moderate dose sliding scale with meals - Carb consistent diet. Code(s): [id number] - (7) Hypothyroidism Current Visit: Yes Status: Chronic Assessment & Plan: - Continue synthroid Code(s): E03.9 - HYPOTHYROIDISM, UNSPECIFIED (8) Bipolar 1 disorder Current Visit: Yes Status: Chronic Assessment & Plan: - with depression - Continue Abilify Code(s): F31.9 - BIPOLAR DISORDER, UNSPECIFIED (9) Morbid obesity with BMI of 70 and over, adult Current Visit: No Status: Chronic Assessment & Plan: - Advised ADA diet and exercise control Code(s): E66.01 - MORBID (SEVERE) OBESITY DUE TO EXCESS CALORIES; Z68.45 - BODY MASS INDEX [BMI] 70 OR GREATER, ADULT (10) Neuropathy Current Visit: No Status: Chronic Assessment & Plan: - Continue Lyrica Code(s): G62.9 - POLYNEUROPATHY, UNSPECIFIED (11) Hypertension, uncontrolled Current Visit: No Status: Chronic Assessment & Plan: - Continue home meds - Bp elevated this AM- trend Code(s): I10 - ESSENTIAL (PRIMARY) HYPERTENSION (12) Hyperlipidemia Current Visit: Yes Status: Chronic Assessment & Plan: - Continues statin Code(s): E78.5 - HYPERLIPIDEMIA, UNSPECIFIED (13) Sleep apnea, obstructive Current Visit: Yes Status: Chronic Assessment & Plan: - Cpap at [facility] VTE: Heparin PPI: Protonix Next of KIN: Child- Rhoda Valiente [phone] D/C plan: 1-2 days Code status: Full Plan of care time: > 45 minutes Code(s): G47.33 - OBSTRUCTIVE SLEEP APNEA (ADULT) (PEDIATRIC)
[2025-05-08] MEDS ORDERED: HUMALOG SQ PRN (10:10)
[2025-05-08 10:36] LABS: Calcium 8.5 mg/dL (8.4-10.2); Carbon Dioxide 25.0 mmol/L (22-30); Creatinine 1 2.07 mg/dL (0.52-1.04); EST GLOMERULAR FILTRATION RATE 27.4 ML/MIN; Glucose 184.0 mg/dL (74-106); Potassium 5.4 mmol/L (3.5-5.1)
[2025-05-08] MEDS: Tums EX 750 MG PO SCH (10:49)
[2025-05-08] MEDS: HEPARIN 5000 UNITS/0.5 ML (HIGH RISK MED) SQ SCH (10:49)
[2025-05-08] MEDS: Protonix 20MG Tablet PO SCH (10:50)
[2025-05-08] MEDS: TYLENOL EXTRA STRENGTH 500 MG PO PRN (21:03)
[2025-05-08] MEDS: ZOCOR 20MG PO SCH (21:03)
[2025-05-08] MEDS: Abilify 10 MG PO SCH (21:04)
[2025-05-09 05:39] LABS: Hematocrit 30.2 % (34.1-44.9); Hemoglobin 9.5 g/dL (11.2-15.7); Mean Corpuscular Hemoglobin 30.8 pg (25.6-32.2); Mean Corpuscular Hgb Concent. 31.5 g/dL (32.2-35.5); Platelet Count 200 x10^3/uL (182-369); Red Blood Count 3.08 x10^6/uL (3.93-5.22); White Blood Count 5.2 x10^3/uL (3.98-10.04)
[2025-05-09 05:58] LABS: Calcium 8.2 mg/dL (8.4-10.2); Carbon Dioxide 24.0 mmol/L (22-30); Creatinine 1 2.48 mg/dL (0.52-1.04); EST GLOMERULAR FILTRATION RATE 22.1 ML/MIN; Glucose 149.0 mg/dL (74-106); SGOT/AST 44.0 U/L (14-36); SGPT/ALT 44.0 U/L (0-35); Total Protein 5.9 g/dL (6.3-8.2)
[2025-05-09 06:02] LABS: Potassium 5.6 mmol/L (3.5-5.1)
[2025-05-09] MEDS: VELTASSA PO STA ×2 (07:45→19:22)
--- NOTE | 2025-05-09 08:09 | PCM.NOTE ---
Date and Time: 05/09/25 0804 Subjective Assessment: 05/07/25 This is a 59-year-old female with a known history of chronic kidney disease complicated by recurrent hyperkalemia, who was referred to the hospital by her primary care physician after routine laboratory testing revealed a potassium level of 5.7 mmol/L. She typically manages her hyperkalemia with chronic Lokelma therapy but has not taken the medication for the past week due to persistent loose stools, which she attributes to recent doxycycline use prescribed for a lower extremity wound ulcer. The patient reports that the wound has not shown significant improvement despite antibiotic therapy and notes decreased oral intake over the past week. She denies any recent fevers or chills. On 05/08/25, the patient is resting comfortably in bed. Repeat laboratory results show a potassium of 5.9 mmol/L and a creatinine of 1.75 mg/dL, elevated from her baseline of 1.29 mg/dL, consistent with acute kidney injury superimposed on chronic kidney disease. Serum calcium is low at 8.1 mg/dL; calcium carbonate (Tums) has been initiated twice daily. Veltassa has been administered for hyperkalemia, and normal saline is infusing at 100 mL/hr to support renal function. Mild hyponatremia is present with sodium at 131 mmol/L, and this will continue to be monitored. Antibiotic therapy has been initiated for left lower extremity cellulitis. Doxycycline was discontinued due to gastrointestinal side effects, and probiotics have been started. A wound culture from the affected leg has been obtained for further evaluation. The patient remains hemodynamically stable, is being monitored on telemetry, and ongoing lab monitoring will continue to assess for improvement. She currently denies any new or concerning symptoms. 05/09 The patient is resting comfortably in bed. Her calcium level remains elevated today. Nephrology was consulted and recommended administering 8.5 g of Veltassa daily; however, she received this dose yesterday and her potassium increased afterward. She has chronic kidney disease and follows outpatient nephrology. Her creatinine today is 2.48, baseline is 1.29. Normal saline at 75 mL/hr was started to assist with electrolyte management. Her potassium is again 5.6 today, and she received another dose of Veltassa at an increased dose. Her hemoglobin A1c is 7.36, indicating uncontrolled diabetes. Continue vancomycin for left lower-extremity cellulitis, which appears improved compared to yesterday. The patient also reported mild bloody nasal drainage due to CPAP-related dryness overnight; Vaseline will be applied to her nares for comfort. She currently denies any additional concerns. - Review of Systems Constitutional: No Fever, No Chills Eyes: No Symptoms Ears, Nose, & Throat: No Symptoms, Nose Discharge (bloody - from dryness pt states) Respiratory: No Cough, No Short Of Breath Cardiac: No Chest Pain, No Edema, No Syncope Abdominal/Gastrointestinal: No Abdominal Pain, No Nausea, No Vomiting, No Diar kia Genitourinary Symptoms: No Dysuria Musculoskeletal: No Back Pain, No Neck Pain Skin: Cellulitis (LLE), No Rash Neurological: No Dizziness, No Focal Weakness, No Sensory Changes Psychological: No Symptoms Endocrine: No Symptoms Hematologic/Lymphatic: No Symptoms Immunological/Allergic: No Symptoms Objective Exam General Appearance: no apparent distress, alert, obese Neurologic Exam: alert, oriented x 3, cooperative, normal mood/affect, nml cerebellar function, sensation nml, No motor deficits Skin Exam: normal color, warm, dry, other (LLE cellulitis) Wound Assessment: Skin/Wound Assessment Wound/Incision Assessment Start: 05/07/25 22:55 Text: Status: Active Freq: Q6H Protocol: Document 05/09/25 02:00 (Rec: 05/09/25 02:05 [id number]) Wound/Incision Assessment right lower leg Wound Assessment Shift Assessment Wound Type multiple small scabs Dressing Status Dry & Intact Comment rash no open area Left Lower Anterior Calf Wound Assessment Shift Assessment Wound Type fluid filled blisters Dressing Status Dry & Intact Drainage Amount None Drainage Odor None/Absent Comment reddened blisters Wound Photo Photo Taken No Eye Exam: PERRL, EOMI, eyes nml inspection Ears, Nose, Throat Exam: normal ENT inspection, pharynx normal, moist mucous membranes Neck Exam: normal inspection, non-tender, supple, full range of motion Respiratory Exam: normal breath sounds, lungs clear, No respiratory distress Cardiovascular Exam: regular rate/rhythm, normal heart sounds Gastrointestinal/Abdomen Exam: soft, No tenderness, No mass Extremity Exam: normal inspection, normal range of motion Back Exam: normal inspection, normal range of motion, No CVA tenderness, No vertebral tenderness Pelvic Exam: deferred Rectal Exam: deferred Objective Data Vital Signs: Vital Signs - 24 hr Temp Pulse Resp BP Pulse Ox 05/09/25 07:17 97.9 F 80 16 141/67 94 L 05/09/25 03:36 97.1 F 78 18 134/69 94 L 05/08/25 23:54 97.9 F 88 17 129/60 95 05/08/25 19:54 98.3 F 91 H 18 142/63 97 05/08/25 16:00 97.5 F 79 18 164/72 96 05/08/25 12:00 16 05/08/25 11:26 97.8 F 79 16 156/70 96 Pain Assessment - Last Documented Pain Intensity 0 Pain Scale Used FLACC Intake and Output: Intake & Output 05/06/25 05/07/25 05/08/25 05/09/25 11:59 11:59 11:59 11:59 Intake Total 1960 120 Output Total 5627 1425 Balance -3690 -1305 Weight 227 kg Lab Results: Lab Results-Last 24 Hours 05/08/25 05/08/25 05/08/25 Range/Units 08:00 08:00 10:00 WBC 6.0 (3.98-10.04) x10^3/uL RBC 3.44 L (3.93-5.22) x10^6/uL Hgb 10.7 L (11.2-15.7) g/dL Hct 33.2 L (34.1-44.9) % MCV 96.5 H (79.4-94.8) fL MCH 31.1 (25.6-32.2) pg MCHC 32.2 (32.2-35.5) g/dL RDW 13.5 (11.7-14.4) % Plt Count 212 (182-369) x10^3/uL MPV 9.9 (9.4-12.3) fL Sodium 133 L (135-145) mmol/L Potassium 5.4 H (3.5-5.1) mmol/L Chloride 103 (98-107) mmol/L Carbon Dioxide 25 (22-30) mmol/L Anion Gap 10.1 (5-15) MEQ/L BUN 52 H (7-17) mg/dL Creatinine 2.07 H (0.52-1.04) mg/dL Estimated GFR 27.4 ML/MIN Glucose 184 H (74-106) mg/dL POC Glucometer (74 to 106) mg/dL Hemoglobin A1c 7.36 H (4.5-6.0) % Calcium 8.5 (8.4-10.2) mg/dL Total Bilirubin (0.2-1.3) mg/dL AST (14-36) U/L ALT (0-35) U/L Alkaline Phosphatase (38-126) U/L NT-Pro-B Natriuret Pep (<300) pg/mL Serum Total Protein (6.3-8.2) g/dL Albumin (3.5-5.0) g/dL 05/08/25 05/08/25 05/08/25 Range/Units 10:00 11:21 12:00 WBC (3.98-10.04) x10^3/uL RBC (3.93-5.22) x10^6/uL Hgb (11.2-15.7) g/dL Hct (34.1-44.9) % MCV (79.4-94.8) fL MCH (25.6-32.2) pg MCHC (32.2-35.5) g/dL RDW (11.7-14.4) % Plt Count (182-369) x10^3/uL MPV (9.4-12.3) fL Sodium (135-145) mmol/L Potassium 5.4 H (3.5-5.1) mmol/L Chloride (98-107) mmol/L Carbon Dioxide (22-30) mmol/L Anion Gap (5-15) MEQ/L BUN (7-17) mg/dL Creatinine (0.52-1.04) mg/dL Estimated GFR ML/MIN Glucose (74-106) mg/dL POC Glucometer 155 H (74 to 106) mg/dL Hemoglobin A1c (4.5-6.0) % Calcium (8.4-10.2) mg/dL Total Bilirubin (0.2-1.3) mg/dL AST (14-36) U/L ALT (0-35) U/L Alkaline Phosphatase (38-126) U/L NT-Pro-B Natriuret Pep 1620 (<300) pg/mL Serum Total Protein (6.3-8.2) g/dL Albumin (3.5-5.0) g/dL 05/08/25 05/08/25 05/09/25 Range/Units 16:24 20:57 05:35 WBC (3.98-10.04) x10^3/uL RBC (3.93-5.22) x10^6/uL Hgb (11.2-15.7) g/dL Hct (34.1-44.9) % MCV (79.4-94.8) fL MCH (25.6-32.2) pg MCHC (32.2-35.5) g/dL RDW (11.7-14.4) % Plt Count (182-369) x10^3/uL MPV (9.4-12.3) fL Sodium 133 L (135-145) mmol/L Potassium 5.6 H (3.5-5.1) mmol/L Chloride 106 (98-107) mmol/L Carbon Dioxide 24 (22-30) mmol/L Anion Gap 9.4 (5-15) MEQ/L BUN 54 H (7-17) mg/dL Creatinine 2.48 H (0.52-1.04) mg/dL Estimated GFR 22.1 ML/MIN Glucose 149 H (74-106) mg/dL POC Glucometer 107 H 115 H (74 to 106) mg/dL Hemoglobin A1c (4.5-6.0) % Calcium 8.2 L (8.4-10.2) mg/dL Total Bilirubin 0.30 (0.2-1.3) mg/dL AST 44 H (14-36) U/L ALT 44 H (0-35) U/L Alkaline Phosphatase 93 (38-126) U/L NT-Pro-B Natriuret Pep (<300) pg/mL Serum Total Protein 5.9 L (6.3-8.2) g/dL Albumin 2.8 L (3.5-5.0) g/dL 05/09/25 05/09/25 Range/Units 05:35 07:13 WBC 5.2 (3.98-10.04) x10^3/uL RBC 3.08 L (3.93-5.22) x10^6/uL Hgb 9.5 L (11.2-15.7) g/dL Hct 30.2 L (34.1-44.9) % MCV 98.1 H (79.4-94.8) fL MCH 30.8 (25.6-32.2) pg MCHC 31.5 L (32.2-35.5) g/dL RDW 13.6 (11.7-14.4) % Plt Count 200 (182-369) x10^3/uL MPV 9.5 (9.4-12.3) fL Sodium (135-145) mmol/L Potassium (3.5-5.1) mmol/L Chloride (98-107) mmol/L Carbon Dioxide (22-30) mmol/L Anion Gap (5-15) MEQ/L BUN (7-17) mg/dL Creatinine (0.52-1.04) mg/dL Estimated GFR ML/MIN Glucose (74-106) mg/dL POC Glucometer 141 H (74 to 106) mg/dL Hemoglobin A1c (4.5-6.0) % Calcium (8.4-10.2) mg/dL Total Bilirubin (0.2-1.3) mg/dL AST (14-36) U/L ALT (0-35) U/L Alkaline Phosphatase (38-126) U/L NT-Pro-B Natriuret Pep (<300) pg/mL Serum Total Protein (6.3-8.2) g/dL Albumin (3.5-5.0) g/dL Medications: Medications Generic Name Dose Route Start Last Admin Trade Name Freq PRN Reason Stop Dose Admin Acetaminophen 1,000 mg 05/08/25 07:32 05/08/25 21:03 Acetaminophen 500 Mg Tablet PO 06/07/25 07:31 1,000 mg Q8H PRN PRN Administration PAIN, FEVER, HEADACHE Aripiprazole 7.5 mg 05/08/25 22:00 05/08/25 21:04 Aripiprazole 10 Mg Tablet PO 06/07/25 21:59 7.5 mg HS MASON Administration Aspirin 81 mg 05/08/25 10:00 05/08/25 08:21 Aspirin 81 Mg Tablet.Ec PO 06/07/25 09:59 81 mg DAILY MASON Administration Calcium Carbonate/Glycine 750 mg 05/08/25 10:00 05/08/25 21:04 Calcium Carbonate 750 Mg 750 Mg Tab.Chew PO 06/07/25 09:59 750 mg BID MASON Administration Duloxetine HCl 60 mg 05/08/25 10:00 05/08/25 08:06 Duloxetine Hcl 30 Mg Cap PO 06/07/25 09:59 60 mg DAILY MASON Administration Heparin Sodium (Beef Lung) 5,000 unit 05/08/25 11:00 05/08/25 21:04 Heparin 5000 Units/0.5 Ml 5,000 Unit/0.5 Ml Syr SQ 06/07/25 10:59 5,000 unit BID MASON Administration Vancomycin HCl 2 gm in 400 mls @ 200 mls/hr 05/08/25 10:00 05/09/25 03:24 Vancomycin 2 Gram/400 Ml Bag IV 06/07/25 09:59 200 mls/hr Q18H MASON Administration Sodium Chloride 1,000 mls @ 75 mls/hr 05/09/25 07:30 05/09/25 07:44 Sodium Chloride 0.9% 1000 Ml IV 06/08/25 07:29 75 mls/hr .[id number] MASON Administration Insulin Glargine 25 unit 05/08/25 10:00 05/08/25 08:17 Insulin Glargine 1 Unit SQ 06/07/25 09:59 25 unit DAILY MASON Administration Insulin Human Lispro 15 unit 05/08/25 08:00 05/09/25 07:49 Insulin Lispro 1 Unit SQ 06/07/25 07:59 15 unit [id number] MASON Administration Insulin Human Lispro 0 unit 05/08/25 10:10 Insulin Lispro 1 Unit SQ 06/07/25 10:09 UD PRN HYPERGLYCEMIA Lactobacillus Acidophilus 1 tab 05/08/25 10:00 05/08/25 08:49 Lactobacillus Acidophilus 1 Tab Tablet PO 06/07/25 09:59 1 tab DAILY MASON Administration Levothyroxine Sodium 100 mcg 05/08/25 10:00 05/08/25 08:07 Levothyroxine Sodium 100 Mcg Tablet PO 06/07/25 09:59 100 mcg DAILY MASON Administration Levothyroxine Sodium 75 mcg 05/08/25 10:00 05/08/25 08:07 Levothyroxine Sodium 75 Mcg Tablet PO 06/07/25 09:59 75 mcg DAILY MASON Administration Loratadine 10 mg 05/08/25 10:00 05/08/25 08:07 Loratadine 10 Mg Tablet PO 06/07/25 09:59 10 mg DAILY MASON Administration Pantoprazole Sodium 20 mg 05/08/25 11:00 05/08/25 10:50 Pantoprazole 20 Mg Tab PO 06/07/25 10:59 20 mg DAILY MASON Administration Pregabalin 25 mg 05/08/25 10:00 05/08/25 21:04 Pregabalin 25 Mg Capsule PO 06/07/25 09:59 25 mg TID MASON Administration Simvastatin 40 mg 05/08/25 22:00 05/08/25 21:03 Simvastatin 20 Mg Tablet PO 06/07/25 21:59 40 mg HS MASON Administration Tramadol HCl 50 mg 05/08/25 07:32 05/08/25 13:16 Tramadol Hcl 50 Mg Tablet PO 06/07/25 05:17 50 mg BID PRN PRN Administration PAIN Discontinued Medications Generic Name Dose Route Start Last Admin Trade Name Freq PRN Reason Stop Dose Admin Aripiprazole 7.5 mg 05/08/25 00:05 05/08/25 00:22 Aripiprazole 10 Mg Tablet PO 05/08/25 00:06 7.5 mg HS ONE Administration Chlorthalidone 25 mg 05/08/25 10:00 05/08/25 08:06 Chlorthalidone 25 Mg Tablet PO 06/07/25 09:59 25 mg DAILY MASON Administration Furosemide 40 mg 05/07/25 21:09 05/07/25 21:14 Furosemide 40 Mg/4 Ml Vial IV 05/07/25 21:10 40 mg STAT ONE Administration Furosemide Confirm 05/07/25 21:12 Furosemide 40 Mg/4 Ml Vial Administered 05/07/25 21:13 Dose 40 mg .ROUTE .STK-MED ONE Furosemide 60 mg 05/08/25 05:22 05/08/25 05:36 Furosemide 40 Mg/4 Ml Vial IV 05/08/25 05:23 60 mg STAT ONE Administration Sodium Chloride 1,000 mls @ 999 mls/hr 05/07/25 21:10 05/07/25 21:13 Sodium Chloride 0.9% 1000 Ml IV 05/07/25 22:10 999 mls/hr .Q1H1M STA Administration Sodium Chloride Confirm 05/07/25 21:13 Sodium Chloride 0.9% 1000 Ml Administered 05/07/25 21:14 Dose 1,000 mls @ ud .ROUTE .STK-MED ONE Sodium Chloride 1,000 mls @ 999 mls/hr 05/08/25 05:23 05/08/25 05:37 Sodium Chloride 0.9% 1000 Ml IV 05/08/25 06:23 999 mls/hr .Q1H1M STA Administration Sodium Chloride 1,000 mls @ 100 mls/hr 05/08/25 07:00 05/08/25 16:41 Sodium Chloride 0.9% 1000 Ml IV 05/08/25 17:00 100 mls/hr .Q10H MASON Administration Metoprolol Succinate 50 mg 05/08/25 00:09 05/08/25 00:22 Metoprolol Succinate 25 Mg Xl Tab PO 05/08/25 00:10 50 mg STAT ONE Administration Non-Formulary Medication 1 each 05/08/25 08:19 05/08/25 09:09 Pharmacy Dose Request: Vancomycin 1 Each IV 05/08/25 08:20 1 each STAT STA Administration Patiromer 16.8 gm 05/08/25 07:26 05/08/25 08:08 Patiromer Calcium Sorbitex 8.4 Gm Powd.Pack PO 05/08/25 07:27 16.8 gm STAT STA Administration Patiromer 25.2 gm 05/09/25 07:28 05/09/25 07:45 Patiromer Calcium Sorbitex 8.4 Gm Powd.Pack PO 05/09/25 07:29 25.2 gm STAT STA Administration Pregabalin 25 mg 05/08/25 00:10 05/08/25 00:21 Pregabalin 25 Mg Capsule PO 05/08/25 00:11 25 mg BID ONE Administration Simvastatin 40 mg 05/08/25 00:11 05/08/25 00:30 Simvastatin 20 Mg Tablet PO 05/08/25 00:12 Not Given HS ONE Tramadol HCl 50 mg 05/08/25 05:18 05/08/25 05:37 Tramadol Hcl 50 Mg Tablet PO 06/07/25 09:59 50 mg BID PRN Administration PAIN Multi-Disciplinary Progress Notes: Multi-Disciplinary Progress Notes 05/08/25 08:32 Pharmacy Note by Kamron Gonzalez Vancomycin dosed at 2gm iv q18h. Will watch creat and order trough later. Initialized on 05/08/25 08:32 - END OF NOTE Assessment/Plan (1) Hyperkalemia Current Visit: Yes Status: Acute Code(s): E87.5 - HYPERKALEMIA (2) Cellulitis of left lower extremity Current Visit: Yes Status: Acute Code(s): L03.116 - CELLULITIS OF LEFT LOWER LIMB (3) Hypocalcemia Current Visit: Yes Status: Acute Code(s): E83.51 - HYPOCALCEMIA (4) LEAHTA (acute kidney injury) Current Visit: Yes Status: Acute Code(s): N17.9 - ACUTE KIDNEY FAILURE, U NSPECIFIED (5) Diarrhea Current Visit: Yes Status: Acute Code(s): R19.7 - DIARRHEA, UNSPECIFIED (6) Uncontrolled type II diabetes mellitus with chronic kidney disease Current Visit: No Status: Chronic Code(s): [id number] - (7) Hypothyroidism Current Visit: Yes Status: Chronic Code(s): E03.9 - HYPOTHYROIDISM, UNSP ECIFIED (8) Bipolar 1 disorder Current Visit: Yes Status: Chronic Code(s): F31.9 - BIPOLAR DISORDER, UNS PECIFIED (9) Morbid obesity with BMI of 70 and over, adult Current Visit: No Status: Chronic Code(s): E66.01 - MORBID (SEVERE) OBESITY DUE TO EXCESS CALORIES; Z68.45 - BODY MASS INDEX [BMI] 70 OR GREATER, ADULT (10) Neuropathy Current Visit: No Status: Chronic Code(s): G62.9 - POLYNEUROPATHY, UNSPECIFIED (11) Hypertension, uncontrolled Current Visit: No Status: Chronic Code(s): I10 - ESSENTIAL (PRIMARY) HYPERTENSION (12) Hyperlipidemia Current Visit: Yes Status: Chronic Code(s): E78.5 - HYPERLIPIDEMIA, UNSPECIFIED (13) Sleep apnea, obstructive Current Visit: Yes Status: Chronic Assessment & Plan: (1) Hyperkalemia Current Visit: Yes Status: Acute Assessment & Plan: - K+ 5.9- trend - Veltassa 16.8 started PO - tele - Patient reports she has not been taking her Lokelma at home and has a history of chronic hyperkalemia. - Lasix IV gave in ER and on admission last night 05/09 - Nephro consult- advised veltassa 8.5 daily - K+ 5.6- trend - Veltassa 25.2 gm ordered today this AM before nephrp consult - See if mary can bring in pt's [facility] as we do not carry Code(s): E87.5 - HYPERKALEMIA (2) Cellulitis of left lower extremity Current Visit: Yes Status: Acute Assessment & Plan: - Was on doxycycline at home and this caused diarrhea for patient. Left lower extremity cellulitis and wound has not improved since being on this antibiotic antibiotics stopped. - Start vancomycin IV. - Wound culture obtained today. - CBC reviewed 05/09 - Prostat 64 - CBC reviewed - WC pending - Prostat 64 Code(s): L03.116 - CELLULITIS OF LEFT LOWER LIMB (3) Hypocalcemia Current Visit: Yes Status: Acute Assessment & Plan: - Ca+ 8.1 - TUMS BID started 05/09 - Corrected Ca+ 8.8 - Stopped Tums Code(s): E83.51 - HYPOCALCEMIA (4) LEATHA (acute kidney injury) Current Visit: Yes Status: Acute Assessment & Plan: - Creat 1.75- Baseline 1.29 - BNP reviewed - IVF - Stop chlorthalidone for now - Lasix gave in ER and on admission 05/09 - Creat 2.48- likely 2:2 lasix gave on admission - IVF - Nephro consult- no recs regarding kidney function at this time - CMP reviewed Code(s): N17.9 - ACUTE KIDNEY FAILURE, UNSPECIFIED (5) Diarrhea Current Visit: Yes Status: Acute Assessment & Plan: - 2:2 doxycycline - Probiotics - Consider stool for c-diff 05/09 - Resolved Code(s): R19.7 - DIARRHEA, UNSPECIFIED (6) 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 - Started Humalog moderate dose sliding scale with meals - Carb consistent diet. Code(s): [id number] - (7) Hypothyroidism Current Visit: Yes Status: Chronic Assessment & Plan: - Continue synthroid Code(s): E03.9 - HYPOTHYROIDISM, UNSPECIFIED (8) Bipolar 1 disorder Current Visit: Yes Status: Chronic Assessment & Plan: - With depression - Continue Abilify Code(s): F31.9 - BIPOLAR DISORDER, UNSPECIFIED (9) Morbid obesity with BMI of 70 and over, adult Current Visit: No Status: Chronic Assessment & Plan: - Advised ADA diet and exercise control Code(s): E66.01 - MORBID (SEVERE) OBESITY DUE TO EXCESS CALORIES; Z68.45 - BODY MASS INDEX [BMI] 70 OR GREATER, ADULT (10) Neuropathy Current Visit: No Status: Chronic Assessment & Plan: - Continue Lyrica Code(s): G62.9 - POLYNEUROPATHY, UNSPECIFIED (11) Hypertension, uncontrolled Current Visit: No Status: Chronic Assessment & Plan: - Continue home meds - Bp elevated this AM- trend Code(s): I10 - ESSENTIAL (PRIMARY) HYPERTENSION (12) Hyperlipidemia Current Visit: Yes Status: Chronic Assessment & Plan: - Continues statin Code(s): E78.5 - HYPERLIPIDEMIA, UNSPECIFIED (13) Sleep apnea, obstructive Current Visit: Yes Status: Chronic Assessment & Plan: - Cpap at [facility] 05/09 - Vaseline to nares VTE: Heparin PPI: Protonix Next of KIN: Child- Rhoda Valiente [phone] D/C plan: 1-2 days Code status: Full Plan of care time: > 40 minutes Code(s): G47.33 - OBSTRUCTIVE SLEEP APNEA (ADULT) (PEDIATRIC) Code(s): G47.33 - OBSTRUCTIVE SLEEP APNEA (ADULT) (PEDIATRIC)
[2025-05-09] MEDS ORDERED: PROVENTIL 2.5 MG/3 ML NEB IH ONE (08:40)
[2025-05-09] MEDS: PROVENTIL 2.5 MG/3 ML NEB IH SCH (08:43)
[2025-05-09 16:18] LABS: Potassium 5.6 mmol/L (3.5-5.1)
[2025-05-10 04:45] LABS: Hematocrit 29.8 % (34.1-44.9); Hemoglobin 9.4 g/dL (11.2-15.7); Mean Corpuscular Hemoglobin 31.3 pg (25.6-32.2); Mean Corpuscular Hgb Concent. 31.5 g/dL (32.2-35.5); Platelet Count 189 x10^3/uL (182-369); Red Blood Count 3.00 x10^6/uL (3.93-5.22); White Blood Count 5.2 x10^3/uL (3.98-10.04)
[2025-05-10] MEDS: VANCOMYCIN 2 GRAM/400 ML BAG 2 GM/400 ML PIGGYBACK IV SCH (05:04)
--- NOTE | 2025-05-10 05:23 | PCM.NOTE ---
Date and Time: 05/10/25 0517 Subjective Assessment: Ms. Quinteros is a 59-year-old female with ASHA, hyperlipidemia, hypertension, peripheral neuropathy, morbid obesity, bipolar disorder, type 2 diabetes, chronic kidney disease with recurrent hyperkalemia, and chronic left lower- extremity ulcer/cellulitis presented on 05/07/25 for recurrent hyperkalemia noted on outpatient labs (K 5.7). She had been off Lokelma for approximately one week due to loose stools shortly after starting doxycycline for her chronic LLE wound, which has shown minimal improvement. She denied systemic symptoms on arrival but reported decreased oral intake. Repeat labs on 05/08 demonstrated worsening hyperkalemia (K 5.9) and LEATHA on baseline CKD (Cr 1.75; baseline 1.29). Sodium 131 and calcium 8.1; calcium carbonate initiated. She received Veltassa and was started on IV fluids at 100 mL/hr. Doxycycline discontinued due to intolerance; wound culture collected; vancomycin initiated for LLE cellulitis. On 05/09, creatinine further increased to 2.48 with persistent hyperkalemia (K 5.6) despite Veltassa. Nephrology recommended Veltassa 8.5 daily; however, potassium jorge after prior dosing, so dose was increased to 25.2. IV fluids reduced to 75 mL/hr. Corrected calcium improved to 8.8 and calcium carbonate discontinued. Cellulitis improving clinically. A1c returned at 7.36. Diarrhea resolved. Reported mild blood-tinged nasal drainage likely from CPAP dryness; petroleum ointment ordered. 05/10/25: Met with patient bedside. Endorses continued LLE mild pain. On exam LLE noted wi th edema +2 pitting with erythema and open area on lateral calf region. Will attempt to obtain culture today. Podiatry consulted for compression wraps. Vanc changed to ceftriaxone until cultures back. Creat continues to increase and now at 2.54- will consult nephrology for further guidance. Potassium at 5.2- Lokelma has been resumed at home dosing (family brought in home med). Denies fever,cough, sob, cp, abdominal pain, GONZALEZ, dizziness, N/V/D. - Review of Systems Constitutional: No Symptoms Eyes: No Symptoms Ears, Nose, & Throat: No Symptoms Respiratory: No Symptoms Cardiac: Edema (BLE edema +2 pitting) Abdominal/Gastrointestinal: No Symptoms Genitourinary Symptoms: No Symptoms Musculoskeletal: No Symptoms Skin: Cellulitis (LLE with open area to lateral calf area/mild on RLE) Neurological: No Symptoms Psychological: No Symptoms Endocrine: No Symptoms Hematologic/Lymphatic: No Symptoms Immunological/Allergic: No Symptoms Objective Exam General Appearance: no apparent distress Neurologic Exam: alert, oriented x 3, cooperative Skin Exam: other (LLE with erythema and open area to lateral calf area/mild on RLE) Wound Assessment: Skin/Wound Assessment Wound/Incision Assessment Start: 05/07/25 22:55 Text: Status: Active Freq: Q6H Protocol: Document 05/10/25 01:35 (Rec: 05/10/25 01:35 [id number]) Wound/Incision Assessment right lower leg Wound Assessment Shift Assessment Wound Type multiple small scabs Dressing Status Dry & Intact Comment rash no open area Left Lower Anterior Calf Wound Assessment Shift Assessment Wound Type fluid filled blisters Dressing Status Dry & Intact Drainage Amount None Drainage Odor None/Absent Comment reddened blisters Eye Exam: PERRL Ears, Nose, Throat Exam: normal ENT inspection Neck Exam: normal inspection Respiratory Exam: normal breath sounds, lungs clear Cardiovascular Exam: regular rate/rhythm, normal heart sounds Gastrointestinal/Abdomen Exam: soft, normal bowel sounds Extremity Exam: pedal edema, swelling, tenderness, other (LLE with open area to lateral calf area/mild on RLE) Back Exam: normal inspection Pelvic Exam: deferred Rectal Exam: deferred Objective Data Vital Signs: Vital Signs - 24 hr Temp Pulse Resp BP Pulse Ox 05/10/25 04:00 97.5 F 79 16 147/74 96 05/10/25 00:00 97.9 F 93 H 16 150/70 96 05/09/25 20:00 98.8 F 95 H 20 157/63 95 05/09/25 18:42 93 H 16 95 05/09/25 16:00 97.9 F 88 16 136/61 96 05/09/25 14:37 89 16 95 05/09/25 14:16 16 05/09/25 11:28 98.3 F 86 16 141/64 95 05/09/25 11:24 87 18 95 05/09/25 10:27 18 05/09/25 08:46 93 H 18 93 L 05/09/25 07:17 97.9 F 80 16 141/67 94 L Pain Assessment - Last Documented Pain Intensity 0 Pain Scale Used FLACC Intake and Output: Intake & Output 05/07/25 05/08/25 05/09/25 05/10/25 11:59 11:59 11:59 11:59 Intake Total 9729 130 6163 Output Total 5640 4568 0070 Balance -3690 -725 -610 Weight 227 kg Lab Results: Lab Results-Last 24 Hours 05/09/25 05/09/25 05/09/25 Range/Units 05:35 05:35 05:35 WBC 5.2 (3.98-10.04) x10^3/uL RBC 3.08 L (3.93-5.22) x10^6/uL Hgb 9.5 L (11.2-15.7) g/dL Hct 30.2 L (34.1-44.9) % MCV 98.1 H (79.4-94.8) fL MCH 30.8 (25.6-32.2) pg MCHC 31.5 L (32.2-35.5) g/dL RDW 13.6 (11.7-14.4) % Plt Count 200 (182-369) x10^3/uL MPV 9.5 (9.4-12.3) fL Sodium 133 L (135-145) mmol/L Potassium 5.6 H (3.5-5.1) mmol/L Chloride 106 (98-107) mmol/L Carbon Dioxide 24 (22-30) mmol/L Anion Gap 9.4 (5-15) MEQ/L BUN 54 H (7-17) mg/dL Creatinine 2.48 H (0.52-1.04) mg/dL Estimated GFR 22.1 ML/MIN Glucose 149 H (74-106) mg/dL POC Glucometer (74 to 106) mg/dL Calcium 8.2 L (8.4-10.2) mg/dL Magnesium 2.0 (1.6-2.3) mg/dL Total Bilirubin 0.30 (0.2-1.3) mg/dL AST 44 H (14-36) U/L ALT 44 H (0-35) U/L Alkaline Phosphatase 93 (38-126) U/L Serum Total Protein 5.9 L (6.3-8.2) g/dL Albumin 2.8 L (3.5-5.0) g/dL 05/09/25 05/09/25 05/09/25 Range/Units 07:13 11:19 16:00 WBC (3.98-10.04) x10^3/uL RBC (3.93-5.22) x10^6/uL Hgb (11.2-15.7) g/dL Hct (34.1-44.9) % MCV (79.4-94.8) fL MCH (25.6-32.2) pg MCHC (32.2-35.5) g/dL RDW (11.7-14.4) % Plt Count (182-369) x10^3/uL MPV (9.4-12.3) fL Sodium (135-145) mmol/L Potassium 5.6 H (3.5-5.1) mmol/L Chloride (98-107) mmol/L Carbon Dioxide (22-30) mmol/L Anion Gap (5-15) MEQ/L BUN (7-17) mg/dL Creatinine (0.52-1.04) mg/dL Estimated GFR ML/MIN Glucose (74-106) mg/dL POC Glucometer 141 H 138 H (74 to 106) mg/dL Calcium (8.4-10.2) mg/dL Magnesium 2.0 (1.6-2.3) mg/dL Total Bilirubin (0.2-1.3) mg/dL AST (14-36) U/L ALT (0-35) U/L Alkaline Phosphatase (38-126) U/L Serum Total Protein (6.3-8.2) g/dL Albumin (3.5-5.0) g/dL 05/09/25 05/09/25 05/10/25 Range/Units 16:00 21:01 04:30 WBC 5.2 (3.98-10.04) x10^3/uL RBC 3.00 L (3.93-5.22) x10^6/uL Hgb 9.4 L (11.2-15.7) g/dL Hct 29.8 L (34.1-44.9) % MCV 99.3 H (79.4-94.8) fL MCH 31.3 (25.6-32.2) pg MCHC 31.5 L (32.2-35.5) g/dL RDW 13.6 (11.7-14.4) % Plt Count 189 (182-369) x10^3/uL MPV 10.1 (9.4-12.3) fL Sodium (135-145) mmol/L Potassium (3.5-5.1) mmol/L Chloride (98-107) mmol/L Carbon Dioxide (22-30) mmol/L Anion Gap (5-15) MEQ/L BUN (7-17) mg/dL Creatinine (0.52-1.04) mg/dL Estimated GFR ML/MIN Glucose (74-106) mg/dL POC Glucometer 188 H 147 H (74 to 106) mg/dL Calcium (8.4-10.2) mg/dL Magnesium (1.6-2.3) mg/dL Total Bilirubin (0.2-1.3) mg/dL AST (14-36) U/L ALT (0-35) U/L Alkaline Phosphatase (38-126) U/L Serum Total Protein (6.3-8.2) g/dL Albumin (3.5-5.0) g/dL Medications: Medications Generic Name Dose Route Start Last Admin Trade Name Freq PRN Reason Stop Dose Admin Acetaminophen 1,000 mg 05/08/25 07:32 05/10/25 04:47 Acetaminophen 500 Mg Tablet PO 06/07/25 07:31 1,000 mg Q8H PRN PRN Administration PAIN, FEVER, HEADACHE Albuterol Sulfate 2.5 mg 05/09/25 11:00 05/09/25 18:42 Albuterol Sulfate 2.5 Mg/3 Ml Neb IH 06/08/25 10:59 2.5 mg QIDRT MASON Administration Aripiprazole 7.5 mg 05/08/25 22:00 05/09/25 21:03 Aripiprazole 10 Mg Tablet PO 06/07/25 21:59 7.5 mg HS MASON Administration Aspirin 81 mg 05/08/25 10:00 05/09/25 09:03 Aspirin 81 Mg Tablet.Ec PO 06/07/25 09:59 81 mg DAILY MASON Administration Duloxetine HCl 60 mg 05/08/25 10:00 05/09/25 09:02 Duloxetine Hcl 30 Mg Cap PO 06/07/25 09:59 60 mg DAILY MASON Administration Heparin Sodium (Beef Lung) 5,000 unit 05/08/25 11:00 05/09/25 21:02 Heparin 5000 Units/0.5 Ml 5,000 Unit/0.5 Ml Syr SQ 06/07/25 10:59 5,000 unit BID MASON Administration Sodium Chloride 1,000 mls @ 75 mls/hr 05/09/25 07:30 05/09/25 21:03 Sodium Chloride 0.9% 1000 Ml IV 06/08/25 07:29 75 mls/hr .[id number] MASON Administration Vancomycin HCl 2 gm in 400 mls @ 200 mls/hr 05/10/25 06:00 05/10/25 05:04 Vancomycin 2 Gram/400 Ml Bag IV 06/09/25 05:59 200 mls/hr Q24H MASON Administration Insulin Glargine 25 unit 05/08/25 10:00 05/09/25 09:00 Insulin Glargine 1 Unit SQ 06/07/25 09:59 25 unit DAILY MASON Administration Insulin Human Lispro 15 unit 05/08/25 08:00 05/09/25 16:16 Insulin Lispro 1 Unit SQ 06/07/25 07:59 15 unit TIDWMEALS MASON Administration Insulin Human Lispro 0 unit 05/08/25 10:10 Insulin Lispro 1 Unit SQ 06/07/25 10:09 UD PRN HYPERGLYCEMIA Lactobacillus Acidophilus 1 tab 05/08/25 10:00 05/09/25 09:01 Lactobacillus Acidophilus 1 Tab Tablet PO 06/07/25 09:59 1 tab DAILY MASON Administration Levothyroxine Sodium 100 mcg 05/08/25 10:00 05/09/25 09:03 Levothyroxine Sodium 100 Mcg Tablet PO 06/07/25 09:59 100 mcg DAILY MASON Administration Levothyroxine Sodium 75 mcg 05/08/25 10:00 05/09/25 09:03 Levothyroxine Sodium 75 Mcg Tablet PO 06/07/25 09:59 75 mcg DAILY MASON Administration Loratadine 10 mg 05/08/25 10:00 05/09/25 09:02 Loratadine 10 Mg Tablet PO 06/07/25 09:59 10 mg DAILY MASON Administration Pantoprazole Sodium 20 mg 05/08/25 11:00 05/09/25 09:03 Pantoprazole 20 Mg Tab PO 06/07/25 10:59 20 mg DAILY MASON Administration Pregabalin 25 mg 05/08/25 10:00 05/09/25 21:02 Pregabalin 25 Mg Capsule PO 06/07/25 09:59 25 mg TID MASON Administration Simvastatin 40 mg 05/08/25 22:00 05/09/25 21:02 Simvastatin 20 Mg Tablet PO 06/07/25 21:59 40 mg HS MASON Administration Tramadol HCl 50 mg 05/08/25 07:32 05/09/25 21:02 Tramadol Hcl 50 Mg Tablet PO 06/07/25 05:17 50 mg BID PRN PRN Administration PAIN Discontinued Medications Generic Name Dose Route Start Last Admin Trade Name Freq PRN Reason Stop Dose Admin Albuterol Sulfate Confirm 05/09/25 08:40 Albuterol Sulfate 2.5 Mg/3 Ml Neb Administered 05/09/25 08:41 Dose 2.5 mg IH .STK-MED ONE Aripiprazole 7.5 mg 05/08/25 00:05 05/08/25 00:22 Aripiprazole 10 Mg Tablet PO 05/08/25 00:06 7.5 mg HS ONE Administration Calcium Carbonate/Glycine 750 mg 05/08/25 10:00 05/09/25 09:02 Calcium Carbonate 750 Mg 750 Mg Tab.Chew PO 06/07/25 09:59 750 mg BID MASON Administration Chlorthalidone 25 mg 05/08/25 10:00 05/08/25 08:06 Chlorthalidone 25 Mg Tablet PO 06/07/25 09:59 25 mg DAILY MASON Administration Furosemide 40 mg 05/07/25 21:09 05/07/25 21:14 Furosemide 40 Mg/4 Ml Vial IV 05/07/25 21:10 40 mg STAT ONE Administration Furosemide Confirm 05/07/25 21:12 Furosemide 40 Mg/4 Ml Vial Administered 05/07/25 21:13 Dose 40 mg .ROUTE .STK-MED ONE Furosemide 60 mg 05/08/25 05:22 05/08/25 05:36 Furosemide 40 Mg/4 Ml Vial IV 05/08/25 05:23 60 mg STAT ONE Administration Sodium Chloride 1,000 mls @ 999 mls/hr 05/07/25 21:10 05/07/25 21:13 Sodium Chloride 0.9% 1000 Ml IV 05/07/25 22:10 999 mls/hr .Q1H1M STA Administration Sodium Chloride Confirm 05/07/25 21:13 Sodium Chloride 0.9% 1000 Ml Administered 05/07/25 21:14 Dose 1,000 mls @ ud .ROUTE .STK-MED ONE Sodium Chloride 1,000 mls @ 999 mls/hr 05/08/25 05:23 05/08/25 05:37 Sodium Chloride 0.9% 1000 Ml IV 05/08/25 06:23 999 mls/hr .Q1H1M STA Administration Sodium Chloride 1,000 mls @ 100 mls/hr 05/08/25 07:00 05/08/25 16:41 Sodium Chloride 0.9% 1000 Ml IV 05/08/25 17:00 100 mls/hr .Q10H MASON Administration Vancomycin HCl 2 gm in 400 mls @ 200 mls/hr 05/08/25 10:00 05/09/25 03:24 Vancomycin 2 Gram/400 Ml Bag IV 06/07/25 09:59 200 mls/hr Q18H MASON Administration Metoprolol Succinate 50 mg 05/08/25 00:09 05/08/25 00:22 Metoprolol Succinate 25 Mg Xl Tab PO 05/08/25 00:10 50 mg STAT ONE Administration Non-Formulary Medication 1 each 05/08/25 08:19 05/08/25 09:09 Pharmacy Dose Request: Vancomycin 1 Each IV 05/08/25 08:20 1 each STAT STA Administration Patiromer 16.8 gm 05/08/25 07:26 05/08/25 08:08 Patiromer Calcium Sorbitex 8.4 Gm Powd.Pack PO 05/08/25 07:27 16.8 gm STAT STA Administration Patiromer 25.2 gm 05/09/25 07:28 05/09/25 07:45 Patiromer Calcium Sorbitex 8.4 Gm Powd.Pack PO 05/09/25 07:29 25.2 gm STAT STA Administration Patiromer 25.2 gm 05/09/25 18:22 05/09/25 19:22 Patiromer Calcium Sorbitex 8.4 Gm Powd.Pack PO 05/09/25 18:23 25.2 gm STAT STA Administration Pregabalin 25 mg 11/08/25 00:10 05/08/25 00:21 Pregabalin 25 Mg Capsule PO 05/08/25 00:11 25 mg BID ONE Administration Simvastatin 40 mg 05/08/25 00:11 05/08/25 00:30 Simvastatin 20 Mg Tablet PO 05/08/25 00:12 Not Given HS ONE Tramadol HCl 50 mg 05/08/25 05:18 05/08/25 05:37 Tramadol Hcl 50 Mg Tablet PO 06/07/25 09:59 50 mg BID PRN Administration PAIN Multi-Disciplinary Progress Notes: Multi-Disciplinary Progress Notes 05/09/25 13:15 Pharmacy Note by Kamron Gonzalez Creat worse at 2.48. Will change dose to q24h frequency. Initialized on 05/09/25 13:15 - END OF NOTE Assessment/Plan (1) Hyperkalemia Current Visit: Yes Status: Acute Assessment & Plan: -K 5.9 -5.6 -5.1 - now within normal limits -Missed home Lokelma x 1 week due to diarrhea -Lasix given in ED and on admission -Nephrology recommended Veltassa 8.5 daily; Veltassa 25.2 given 05/09/25 -Lokelma brought in by family - will continue today at home dosing -Telemetry -Low-K diet -avoid nephrotoxins and potassium-sparing meds; insulin/dextrose PRN if worsening Code(s): E87.5 - HYPERKALEMIA (2) Acute kidney injury superimposed on CKD Current Visit: Yes Status: Acute Assessment & Plan: -Creatinine 1.29 baseline -1.75 (05/08) - 2.48 (05/09)- 2.54 basline around 1.7 - improving -Likely prerenal + diuretic effect after Lasix on admission -NS 100 -75 mL/hr -Chlorthalidone held -Monitor renal/lytes daily -Renally dose meds, avoid nephrotoxins -Nephrology re-consulted for further management Code(s): N17.9 - ACUTE KIDNEY FAILURE, UNSPECIFIED; N18.9 - CHRONIC KIDNEY DISEASE, UNSPECIFIED (3) Cellulitis of left lower extremity Current Visit: Yes Status: Acute Assessment & Plan: -Failed doxycycline with GI intolerance -Culture sent- was cancelled -culture to be obtained with open area -Vancomycin started; improving clinically -transition to ceftriaxone IV - follow culture -Podiatry consulted - pt may need compression dressings -venous doppler ordered Code(s): L03.116 - CELLULITIS OF LEFT LOWER LIMB (4) DM (diabetes mellitus) Current Visit: Yes Status: Acute Assessment & Plan: -A1c 7.36 -SSI/bolus with meals started/basal insulin; carb-consistent diet Code(s): E11.9 - TYPE 2 DIABETES MELLITUS WITHOUT COMPLICATIONS (5) Diarrhea Current Visit: Yes Status: Acute Assessment & Plan: -Likely antibiotic-associated -now resolved -Probiotics given -monitor; send C. diff only if returns Code(s): R19.7 - DIARRHEA, UNSPECIFIED (6) Hypocalcemia Current Visit: Yes Status: Acute Assessment & Plan: -Ca 8.1 - corrected Ca 8.8 -Tums started then stopped after improvement -Monitor with routine labs Code(s): E83.51 - HYPOCALCEMIA (7) Bipolar 1 disorder Current Visit: Yes Status: Chronic Assessment & Plan: -Continue aripiprazole Code(s): F31.9 - BIPOLAR DISORDER, UNSPECIFIED (8) Hyperlipidemia Current Visit: Yes Status: Chronic Assessment & Plan: -Continue statin Code(s): E78.5 - HYPERLIPIDEMIA, UNSPECIFIED (9) Hypothyroidism Current Visit: Yes Status: Chronic Assessment & Plan: -Continue levothyroxine Code(s): E03.9 - HYPOTHYROIDISM, UNSPECIFIED (10) Sleep apnea, obstructive Current Visit: Yes Status: Chronic Assessment & Plan: -BMI >70 -CPAP nocturnally; petroleum ointment to nares for dryness -Diet counseling Code(s): G47.33 - OBSTRUCTIVE SLEEP APNEA (ADULT) (PEDIATRIC) (11) Morbid obesity with BMI of 70 and over, adult Current Visit: No Status: Chronic Code(s): E66.01 - MORBID (SEVERE) OBESITY DUE TO EXCESS CALORIES; Z68.45 - BODY MASS INDEX [BMI] 70 OR GREATER, ADULT (12) HTN (hypertension) Current Visit: Yes Status: Acute Assessment & Plan: -Stable; Amlodipine/ on hold -restart metoprolol VTE: Heparin PPI: Protonix Dispo: 1-3 days Code status: Full code Code(s): I10 - ESSENTIAL (PRIMARY) HYPERTENSION
[2025-05-10 05:47] LABS: Calcium 8.3 mg/dL (8.4-10.2); Carbon Dioxide 23.0 mmol/L (22-30); Creatinine 1 2.54 mg/dL (0.52-1.04); EST GLOMERULAR FILTRATION RATE 21.5 ML/MIN; Glucose 143.0 mg/dL (74-106); Potassium 5.1 mmol/L (3.5-5.1); SGOT/AST 44.0 U/L (14-36); SGPT/ALT 43.0 U/L (0-35); Total Protein 5.9 g/dL (6.3-8.2)
[2025-05-10] MEDS: PATIENT OWN MEDICATION PO SCH (07:40)
[2025-05-10] MEDS: Toprol Xl 50 MG PO SCH (09:18)
[2025-05-10] MEDS: ROCEPHIN 1 GM / 100 ML NaCl 1 GM/100 ML IVPB IV SCH (09:26)
[2025-05-10] MEDS ORDERED: VELTASSA PO SCH (10:00)
[2025-05-10] MEDS ORDERED: KEFLEX 500 MG PO SCH (10:00)
--- NOTE | 2025-05-10 10:47 | XRAY ---
Indication: Edema. Two-dimensional sonogram and color Doppler imaging major venous vessels left and right leg performed. Comparison: None Graphic Engineer notes limited sonogram due to patient body habitus. No obvious thrombus seen in the examined deep venous vessels left and right leg including greater saphenous vein. Veins demonstrate normal compressibility. Venous waveforms are normal with and without augmentation. Impression: Limited sonogram due to patient body habitus. No obvious DVT in left and right leg.
--- NOTE | 2025-05-10 16:09 | PCM.CONS ---
Podiatry HPI - Consult Date of Consultation Date: 05/10/25 Reason for Consult: Left lower extremity ulcer in the context of chronic venous disease, diabetes mellitus, and [id number] hyperkalemia. Consulting Provider: GOPAL SANTOS DPM - [facility] History of Present Illness: This is a 59-year-old female with a known history of chronic kidney disease complicated by recurrent hyperkalemia, who was referred to the hospital by her primary care physician after routine laboratory testing revealed a potassium level of 5.7 mmol/L. She typically manages her hyperkalemia with chronic Lokelma therapy but has not taken the medication for the past week due to persistent loose stools, which she attributes to recent doxycycline use prescribed for a lower extremity wound ulcer. The patient reports that the wound has not shown si gnificant improvement despite antibiotic therapy and notes decreased oral intake over the past week. She denies any recent fevers or chills. On 05/08/25, the patient is resting comfortably in bed. Repeat laboratory results show a potassium of 5.9 mmol/L and a creatinine of 1.75 mg/dL, elevated from her baseline of 1.29 mg/dL, consistent with acute kidney injury superimposed on chronic kidney disease. Serum calcium is low at 8.1 mg/dL; calcium carbonate (Tums) has been initiated twice daily. Veltassa has been administered for hyperkalemia, and normal saline is infusing at 100 mL/hr to support renal function. Mild hyponatremia is present with sodium at 131 mmol/L, and this will continue to be monitored. Antibiotic therapy has been initiated for left lower extremity cellulitis. Doxycycline was discontinued due to gastrointestinal side effects, and probiotics have been started. A wound culture from the affected leg has been obtained for further evaluation. The patient remains hemodynamically stable, is being monitored on telemetry, and ongoing lab monitoring will continue to assess for improvement. She currently denies any new or concerning symptoms. Medications & Allergies Home Medications: Home Medication List Aripiprazole [Abilify] 0.5 tab PO HS 08/11/23 [History Confirmed 05/07/25] Aspirin [Aspirin EC] 81 mg PO DAILY 08/11/23 [History Confirmed 05/07/25] Levothyroxine Sodium 175 mcg PO DAILY 08/11/23 [History Confirmed 05/07/25] Multivitamin 1 each PO DAILY 08/11/23 [History Confirmed 05/07/25] Amlodipine Besylate 2.5 mg PO DAILY 04/19/25 [History Confirmed 05/07/25] Atorvastatin Calcium 40 mg PO HS 04/19/25 [History Confirmed 05/07/25] Insulin Aspart [Novolog] 15 units SQ TID 04/19/25 [History Confirmed 05/07/25] Insulin Glargine,Hum.rec.anlog [Basaglar Kwikpen U-100] 25 mg SQ DAILY 04/19/25 [History Confirmed 05/07/25] Loratadine 10 mg [Claritin 10 mg] 10 mg PO DAILY 04/19/25 [History Confirmed 05/07/25] Metoprolol Succinate 25 mg Xl* [Toprol-Xl 25MG Tablets] 50 mg PO BID 04/19/25 [History Confirmed 05/07/25] Pregabalin 25 mg [Lyrica 25 MG] 25 mg PO TID 04/19/25 [History Confirmed 05/07/25] Duloxetine HCl 60 mg PO DAILY 05/07/25 [History Confirmed 05/07/25] Sodium Zirconium Cyclosilicate [Lokelma] 5 gm PO DAILY 05/07/25 [History Confirmed 05/07/25] Allergies/Adverse Reactions: Allergies Allergy/AdvReac Type Severity Reaction Status Date / Time lisinopril Allergy Intermediate Cough Verified 05/07/25 20:09 Penicillins Allergy Intermediate Rash Verified 05/07/25 20:09 - Past Medical History Past Medical History: Yes Neurological History: Peripheral Neuropathy ENT History: No Pertinent History Cardiac History: High Cholesterol, Hypertension Respiratory History: No Pertinent History Endocrine Medical History: Diabetes Type II, Hypothyroidism, Liver Disease Musculoskelatal History: Arthritis GI Medical History: Diverticulosis History: No Pertinent History Pyscho-Social History: Depression Reproductive Disorders: Endometriosis - Past Surgical History Past Surgical History: Yes Neuro Surgical History: No Pertinent History Cardiac History: No Pertinent History Respiratory Surgery: No Pertinent History GI Surgical History: No Pertinent History Genitourinary Surgical Hx: No Pertinent History Musculskeletal Surgical Hx: Orthopedic Surgery Female Surgical History: Hysterectomy Other Surgical History: ganglion cyst removal right wrist - Social History Smoking Status: Never smoker Exposure to second hand smoke: No Alcohol: None Drug Use: none - Social Determinants of Health Will the patient participate in the screening: Yes Do you worry about a steady place to live?: No Do you have any problems with any of the following?: No known problems In the past 12 months,have you had to go without utilities?: No Have you or anyone in your house had to go without enough: No Transportation Issues: No Has anyone in your support network made you feel unsafe?: No Does the patient want assistance with any of the above?: No Physical Exam - Narrative Narrative Physical Exam: Podiatry Physical Exam Results - Labs Lab/Micro Results: Lab Results-Last 24 Hours 05/09/25 05/09/25 05/09/25 Range/Units 16:00 16:00 21:01 WBC (3.98-10.04) x10^3/uL RBC (3.93-5.22) x10^6/uL Hgb (11.2-15.7) g/dL Hct (34.1-44.9) % MCV (79.4-94.8) fL MCH (25.6-32.2) pg MCHC (32.2-35.5) g/dL RDW (11.7-14.4) % Plt Count (182-369) x10^3/uL MPV (9.4-12.3) fL Sodium (135-145) mmol/L Potassium 5.6 H (3.5-5.1) mmol/L Chloride (98-107) mmol/L Carbon Dioxide (22-30) mmol/L Anion Gap (5-15) MEQ/L BUN (7-17) mg/dL Creatinine (0.52-1.04) mg/dL Estimated GFR ML/MIN Glucose (74-106) mg/dL POC Glucometer 188 H 147 H (74 to 106) mg/dL Calcium (8.4-10.2) mg/dL Magnesium 2.0 (1.6-2.3) mg/dL Total Bilirubin (0.2-1.3) mg/dL AST (14-36) U/L ALT (0-35) U/L Alkaline Phosphatase (38-126) U/L Serum Total Protein (6.3-8.2) g/dL Albumin (3.5-5.0) g/dL 05/10/25 05/10/2525 Range/Units 04:30 04:30 07:05 WBC 5.2 (3.98-10.04) x10^3/uL RBC 3.00 L (3.93-5.22) x10^6/uL Hgb 9.4 L (11.2-15.7) g/dL Hct 29.8 L (34.1-44.9) % MCV 99.3 H (79.4-94.8) fL MCH 31.3 (25.6-32.2) pg MCHC 31.5 L (32.2-35.5) g/dL RDW 13.6 (11.7-14.4) % Plt Count 189 (182-369) x10^3/uL MPV 10.1 (9.4-12.3) fL Sodium 133 L (135-145) mmol/L Potassium 5.1 (3.5-5.1) mmol/L Chloride 106 (98-107) mmol/L Carbon Dioxide 23 (22-30) mmol/L Anion Gap 9.1 (5-15) MEQ/L BUN 55 H (7-17) mg/dL Creatinine 2.54 H (0.52-1.04) mg/dL Estimated GFR 21.5 ML/MIN Glucose 143 H (74-106) mg/dL POC Glucometer 154 H (74 to 106) mg/dL Calcium 8.3 L (8.4-10.2) mg/dL Magnesium (1.6-2.3) mg/dL Total Bilirubin 0.30 (0.2-1.3) mg/dL AST 44 H (14-36) U/L ALT 43 H (0-35) U/L Alkaline Phosphatase 96 (38-126) U/L Serum Total Protein 5.9 L (6.3-8.2) g/dL Albumin 2.8 L (3.5-5.0) g/dL Accuchecks Date 05/10/25 Date 05/10/25 Date 05/09/25 Time 16:28 - Radiology Impressions Radiology Exams & Impressions: Radiology Procedures Category Date Time Status VENOUS BILATERAL EXTREMITY [US] Stat Exams 05/10/25 08:37 Completed Assessment/Plan (1) Cellulitis of left lower extremity Current Visit: Yes Status: Acute Assessment & Plan: Inital patient examination and evaluation ultrasound reviewed and discussed with patient demonstrating no obvious occlusions. Non-healing left leg ulcer appears to be venous in nature in the setting of obese, edematous limb with CKD-related microvascular compromise. The negative venous reflux study supports a microcirculatory and metabolic etiology, likely compounded by chronic edema and impaired lymphatic drainage. The wound will be cleansed with saline or gentle wound cleanser and covered with a non-adherent primary dressing to protect the wound base. Compression therapy will be initiated using an Unna boot to assist with edema control and improve venous and lymphatic return. The Unna boot will be changed every other day, or sooner if saturated or loosened. The patient is advised to keep the leg elevated when at rest to reduce dependent edema and promote wound healing. Medicine team managing abx at this time- will follow your lead Will follow with you Thank you for the consult. Code(s): L03.116 - CELLULITIS OF LEFT LOWER LIMB (2) DM (diabetes mellitus) Current Visit: Yes Status: Acute Code(s): E11.9 - TYPE 2 DIABETES MELLITUS WITHOUT COMPLICATIONS (3) Uncontrolled type II diabetes mellitus with chronic kidney disease Current Visit: No Status: Chronic Code(s): [id number] -
[2025-05-10] MEDS: Lasix 40 MG/4 ML IV SCH (21:43)
[2025-05-11 04:30] LABS: BASOPHIL % 1.0 % (0.1-1.2); Basophil (Absolute #) 0.05 x10^3/uL (0.01-0.08); Eosinophil (Absolute #) 0.34 x10^3/uL (0.04-0.36); Hematocrit 32.1 % (34.1-44.9); Hemoglobin 10.0 g/dL (11.2-15.7); IMMATURE GRAN # 0.03 x10^3u/L (0.001-0.031); IMMATURE GRAN % 0.6 % (0.001-0.429); Lymphocyte (Absolute #) 1.35 x10^3/uL (1.18-3.74); Mean Corpuscular Hemoglobin 30.9 pg (25.6-32.2); Mean Corpuscular Hgb Concent. 31.2 g/dL (32.2-35.5); Monocyte (Absolute #) 0.56 x10^3/uL (0.24-0.86); NUCLEATED RBC # 0.00 x10^3u/L (0.00-0.012); NUCLEATED RBC % 0.0 % (0.00-0.2); Platelet Count 202 x10^3/uL (182-369); Red Blood Count 3.24 x10^6/uL (3.93-5.22); White Blood Count 5.2 x10^3/uL (3.98-10.04)
[2025-05-11 04:46] LABS: CK-Creatinine Phosphokinase 194.0 U/L (30-135); Calcium 8.4 mg/dL (8.4-10.2); Carbon Dioxide 23.0 mmol/L (22-30); Creatinine 1 2.43 mg/dL (0.52-1.04); EST GLOMERULAR FILTRATION RATE 22.6 ML/MIN; Glucose 135.0 mg/dL (74-106); Potassium 5.1 mmol/L (3.5-5.1); SGOT/AST 54.0 U/L (14-36); SGPT/ALT 51.0 U/L (0-35); Total Protein 6.5 g/dL (6.3-8.2)
--- NOTE | 2025-05-11 05:25 | PCM.NOTE ---
Date and Time: 05/11/25 0516 Subjective Assessment: Ms. Quinteros is a 59-year-old female with ASHA, hyperlipidemia, hypertension, peripheral neuropathy, morbid obesity, bipolar disorder, type 2 diabetes, chronic kidney disease with recurrent hyperkalemia, and chronic left lower- extremity ulcer/cellulitis presented on 05/07/25 for recurrent hyperkalemia noted on outpatient labs (K 5.7). She had been off Lokelma for approximately one week due to loose stools shortly after starting doxycycline for her chronic LLE wound, which has shown minimal improvement. She denied systemic symptoms on arrival but reported decreased oral intake. Repeat labs on 05/08 demonstrated worsening hyperkalemia (K 5.9) and LEATHA on baseline CKD (Cr 1.75; baseline 1.29). Sodium 131 and calcium 8.1; calcium carbonate initiated. She received Veltassa and was started on IV fluids at 100 mL/hr. Doxycycline discontinued due to intolerance; wound culture collected; vancomycin initiated for LLE cellulitis. On 05/09, creatinine further increased to 2.48 with persistent hyperkalemia (K 5.6) despite Veltassa. Nephrology recommended Veltassa 8.5 daily; however, potassium jorge after prior dosing, so dose was increased to 25.2. IV fluids reduced to 75 mL/hr. Corrected calcium improved to 8.8 and calcium carbonate discontinued. Cellulitis improving clinically. A1c returned at 7.36. Diarrhea resolved. Reported mild blood-tinged nasal drainage likely from CPAP dryness; petroleum ointment ordered. 05/10/25: Met with patient bedside. Endorses continued LLE mild pain. On exam LLE noted wi th edema +2 pitting with erythema and open area on lateral calf region. Will attempt to obtain culture today. Podiatry consulted for compression wraps. Vanc changed to ceftriaxone until cultures back. Creat continues to increase and now at 2.54- will consult nephrology for further guidance. Potassium at 5.2- Lokelma has been resumed at home dosing (family brought in home med). Denies fever,cough, sob, cp, abdominal pain, GONZALEZ, dizziness, N/V/D. 05/11/25: No acute events documented overnight. The patient reports reduced bilateral lower-extremity pain. Venous Doppler ultrasound was negative for DVT. Podiatry evaluated the patient and applied Unna boots for management of chronic lower- extremity edema and to facilitate venous and lymphatic return. Nephrology continues to follow for persistent LEATHA. Recommendations include furosemide 40 mg BID for two days and reduction of IV fluids to 10 mL/hr. Serum creatinine demonstrates mild interval improvement, and prior hyperkalemia has resolved. Wound culture remains pending; ceftriaxone therapy was initiated on 05/10/25 and culture results will be trended. Echo has been ordered and is pending. - Review of Systems Constitutional: Weakness Eyes: No Symptoms Ears, Nose, & Throat: No Symptoms Respiratory: No Symptoms Cardiac: Edema (BLE +2 pitting edema) Abdominal/Gastrointestinal: No Symptoms Genitourinary Symptoms: No Symptoms Musculoskeletal: No Symptoms Skin: Cellulitis (BLE greater on the left with open wound and scattered scabbed wound), Rash, Skin Lesions Neurological: No Symptoms Psychological: No Symptoms Endocrine: No Symptoms Hematologic/Lymphatic: Anemia Immunological/Allergic: No Symptoms Objective Exam General Appearance: no apparent distress, obese Neurologic Exam: alert, oriented x 3, cooperative Skin Exam: other (BLE greater on the left with open wound and scattered scabbed wound) Wound Assessment: Skin/Wound Assessment Wound/Incision Assessment Start: 05/07/25 22:55 Text: Status: Active Freq: Q6H Protocol: Document 05/11/25 03:11 RB (Rec: 05/11/25 03:12 RB [id number]) Wound/Incision Assessment right lower leg Wound Assessment Shift Assessment Wound Type multiple small scabs Dressing Status Dry & Intact Drainage Amount None Drainage Odor None/Absent Surrounding Tissue [place] Comment Open to air Left Lower Anterior Calf Wound Assessment Shift Assessment Wound Type fluid filled blisters Dressing Status Dry & Intact Drainage Amount None Drainage Odor None/Absent Surrounding Tissue Bright Red Comment reddened blisters, scabbed over, open to air Wound Photo Photo Taken No Eye Exam: PERRL Ears, Nose, Throat Exam: normal ENT inspection Neck Exam: normal inspection Respiratory Exam: normal breath sounds, lungs clear Cardiovascular Exam: regular rate/rhythm, normal heart sounds Gastrointestinal/Abdomen Exam: soft, normal bowel sounds Extremity Exam: pedal edema, swelling Back Exam: normal inspection Pelvic Exam: deferred Rectal Exam: deferred Objective Data Vital Signs: Vital Signs - 24 hr Temp Pulse Resp BP Pulse Ox 05/11/25 04:00 97.3 F 63 20 139/61 97 05/11/25 03:11 20 11/10/25 23:31 97.2 F 76 20 133/64 98 05/10/25 19:03 97.7 F 78 21 145/77 100 05/10/25 18:26 79 16 100 05/10/25 18:06 16 05/10/25 16:00 97.5 F 78 16 146/68 98 05/10/25 15:09 78 16 96 05/10/25 14:25 16 05/10/25 11:50 97.5 F 77 16 165/70 98 05/10/25 10:59 78 16 96 05/10/25 08:09 16 05/10/25 07:22 97.5 F 85 16 162/74 95 05/10/25 06:36 85 16 93 L Pain Assessment - Last Documented Pain Intensity 0 [facility] Intake and Output: Intake & Output 05/08/25 05/09/25 05/10/25 05/11/25 11:59 11:59 11:59 11:59 Intake Total 2786 051 7362 2943 Output Total 5681 1425 3650 3000 Balance -3690 -725 -680 -57 Weight 227 kg Lab Results: Lab Results-Last 24 Hours 05/10/25 05/10/25 05/10/25 Range/Units 04:30 07:05 16:13 WBC (3.98-10.04) x10^3/uL RBC (3.93-5.22) x10^6/uL Hgb (11.2-15.7) g/dL Hct (34.1-44.9) % MCV (79.4-94.8) fL MCH (25.6-32.2) pg MCHC (32.2-35.5) g/dL RDW (11.7-14.4) % Plt Count (182-369) x10^3/uL MPV (9.4-12.3) fL Gran % (34.0-71.1) % Immature Gran % (Auto) (0.001-0.429) % Nucleat RBC Rel Count (0.00-0.2) % Eos # (Auto) (0.04-0.36) x10^3/uL Immature Gran # (Auto) (0.001-0.031) x10^3u/L Absolute Lymphs (auto) (1.18-3.74) x10^3/uL Absolute Monos (auto) (0.24-0.86) x10^3/uL Absolute Nucleated RBC (0.00-0.012) x10^3u/L Lymphocytes % (19.3-51.7) % Monocytes % (4.7-12.5) % Eosinophils % (0.7-5.8) % Basophils % (0.1-1.2) % Absolute Granulocytes (1.56-6.13) x10^3/uL Basophils # (0.01-0.08) x10^3/uL Sodium 133 L (135-145) mmol/L Potassium 5.1 (3.5-5.1) mmol/L Chloride 106 (98-107) mmol/L Carbon Dioxide 23 (22-30) mmol/L Anion Gap 9.1 (5-15) MEQ/L BUN 55 H (7-17) mg/dL Creatinine 2.54 H (0.52-1.04) mg/dL Estimated GFR 21.5 ML/MIN Glucose 143 H (74-106) mg/dL POC Glucometer 154 H 129 H (74 to 106) mg/dL Calcium 8.3 L (8.4-10.2) mg/dL Total Bilirubin 0.30 (0.2-1.3) mg/dL AST 44 H (14-36) U/L ALT 43 H (0-35) U/L Alkaline Phosphatase 96 (38-126) U/L Creatine Kinase (30-135) U/L Serum Total Protein 5.9 L (6.3-8.2) g/dL Albumin 2.8 L (3.5-5.0) g/dL 05/10/25 05/11/25 05/11/25 Range/Units 21:31 04:25 04:25 WBC 5.2 (3.98-10.04) x10^3/uL RBC 3.24 L (3.93-5.22) x10^6/uL Hgb 10.0 L (11.2-15.7) g/dL Hct 32.1 L (34.1-44.9) % MCV 99.1 H (79.4-94.8) fL MCH 30.9 (25.6-32.2) pg MCHC 31.2 L (32.2-35.5) g/dL RDW 13.4 (11.7-14.4) % Plt Count 202 (182-369) x10^3/uL MPV 9.8 (9.4-12.3) fL Gran % 55.3 (34.0-71.1) % Immature Gran % (Auto) 0.6 H (0.001-0.429) % Nucleat RBC Rel Count 0.0 (0.00-0.2) % Eos # (Auto) 0.34 (0.04-0.36) x10^3/uL Immature Gran # (Auto) 0.03 (0.001-0.031) x10^3u/L Absolute Lymphs (auto) 1.35 (1.18-3.74) x10^3/uL Absolute Monos (auto) 0.56 (0.24-0.86) x10^3/uL Absolute Nucleated RBC 0.00 (0.00-0.012) x10^3u/L Lymphocytes % 25.9 (19.3-51.7) % Monocytes % 10.7 (4.7-12.5) % Eosinophils % 6.5 H (0.7-5.8) % Basophils % 1.0 (0.1-1.2) % Absolute Granulocytes 2.89 (1.56-6.13) x10^3/uL Basophils # 0.05 (0.01-0.08) x10^3/uL Sodium 135 (135-145) mmol/L Potassium 5.1 (3.5-5.1) mmol/L Chloride 107 (98-107) mmol/L Carbon Dioxide 23 (22-30) mmol/L Anion Gap 9.4 (5-15) MEQ/L BUN 56 H (7-17) mg/dL Creatinine 2.43 H (0.52-1.04) mg/dL Estimated GFR 22.6 ML/MIN Glucose 135 H (74-106) mg/dL POC Glucometer 137 H (74 to 106) mg/dL Calcium 8.4 (8.4-10.2) mg/dL Total Bilirubin 0.30 (0.2-1.3) mg/dL AST 54 H (14-36) U/L ALT 51 H (0-35) U/L Alkaline Phosphatase 95 (38-126) U/L Creatine Kinase 194 H (30-135) U/L Serum Total Protein 6.5 (6.3-8.2) g/dL Albumin 3.2 L (3.5-5.0) g/dL Radiology Exams: Radiology Procedures Category Date Time Status VENOUS BILATERAL EXTREMITY [US] Stat Exams 05/10/25 08:37 Completed Medications: Medications Generic Name Dose Route Start Last Admin Trade Name Freq PRN Reason Stop Dose Admin Acetaminophen 1,000 mg 05/08/25 07:32 05/10/25 04:47 Acetaminophen 500 Mg Tablet PO 06/07/25 07:31 1,000 mg Q8H PRN PRN Administration PAIN, FEVER, HEADACHE Albuterol Sulfate 2.5 mg 05/09/25 11:00 05/10/25 18:26 Albuterol Sulfate 2.5 Mg/3 Ml Neb IH 06/08/25 10:59 2.5 mg QIDRT MASON Administration Aripiprazole 7.5 mg 05/08/25 22:00 05/10/25 21:44 Aripiprazole 10 Mg Tablet PO 06/07/25 21:59 7.5 mg HS MASON Administration Aspirin 81 mg 05/08/25 10:00 05/10/25 09:26 Aspirin 81 Mg Tablet.Ec PO 06/07/25 09:59 81 mg DAILY MASON Administration Duloxetine HCl 60 mg 05/08/25 10:00 05/10/25 09:17 Duloxetine Hcl 30 Mg Cap PO 06/07/25 09:59 60 mg DAILY MASON Administration Furosemide 40 mg 05/10/25 20:00 05/10/25 21:43 Furosemide 40 Mg/4 Ml Vial IV 05/12/25 19:59 40 mg Q12H MASON Administration Heparin Sodium (Beef Lung) 5,000 unit 05/08/25 11:00 05/10/25 21:43 Heparin 5000 Units/0.5 Ml 5,000 Unit/0.5 Ml Syr SQ 06/07/25 10:59 5,000 unit BID MASON Administration Sodium Chloride 1,000 mls @ 10 mls/hr 05/09/25 07:30 05/10/25 12:39 Sodium Chloride 0.9% 1000 Ml IV 06/08/25 07:29 75 mls/hr .Q24H MASON Administration Ceftriaxone Sodium 1 gm in 100 mls @ 200 mls/hr 05/10/25 10:00 05/10/25 09:26 Rocephin 1 Gm / 100 Ml Nacl IV 06/09/25 09:59 200 mls/hr Q24H10 MASON Administration Insulin Glargine 25 unit 05/08/25 10:00 05/10/25 09:18 Insulin Glargine 1 Unit SQ 06/07/25 09:59 25 unit DAILY MASON Administration Insulin Human Lispro 15 unit 05/08/25 08:00 05/10/25 17:00 Insulin Lispro 1 Unit SQ 06/07/25 07:59 15 unit TIDWMEALS MASON Administration Insulin Human Lispro 0 unit 05/08/25 10:10 Insulin Lispro 1 Unit SQ 06/07/25 10:09 UD PRN HYPERGLYCEMIA Lactobacillus Acidophilus 1 tab 05/08/25 10:00 05/10/25 09:17 Lactobacillus Acidophilus 1 Tab Tablet PO 06/07/25 09:59 1 tab DAILY MASON Administration Levothyroxine Sodium 100 mcg 05/08/25 10:00 05/10/25 09:17 Levothyroxine Sodium 100 Mcg Tablet PO 06/07/25 09:59 100 mcg DAILY MASON Administration Levothyroxine Sodium 75 mcg 05/08/25 10:00 05/10/25 09:22 Levothyroxine Sodium 75 Mcg Tablet PO 06/07/25 09:59 75 mcg DAILY MASON Administration Loratadine 10 mg 05/08/25 10:00 05/10/25 09:17 Loratadine 10 Mg Tablet PO 06/07/25 09:59 10 mg DAILY MASON Administration Metoprolol Succinate 50 mg 05/10/25 10:00 05/10/25 21:44 Metoprolol Succinate 50 Mg Tablet.Sa PO 06/09/25 09:59 50 mg BID MASON Administration Pantoprazole Sodium 20 mg 05/08/25 11:00 05/10/25 09:18 Pantoprazole 20 Mg Tab PO 06/07/25 10:59 20 mg DAILY MASON Administration Patient Own Medication 1 each 05/10/25 18:48 Patient Own Med Misc PO 06/09/25 07:59 0800 MASON Pregabalin 25 mg 05/08/25 10:00 05/10/25 21:44 Pregabalin 25 Mg Capsule PO 06/07/25 09:59 25 mg TID MASON Administration Simvastatin 40 mg 05/08/25 22:00 05/10/25 21:44 Simvastatin 20 Mg Tablet PO 06/07/25 21:59 40 mg HS MASON Administration Tramadol HCl 50 mg 05/08/25 07:32 05/11/25 04:33 Tramadol Hcl 50 Mg Tablet PO 06/07/25 05:17 50 mg BID PRN PRN Administration PAIN Discontinued Medications Generic Name Dose Route Start Last Admin Trade Name Freedilma PRN Reason Stop Dose Admin Albuterol Sulfate Confirm 05/09/25 08:40 Albuterol Sulfate 2.5 Mg/3 Ml Neb Administered 05/09/25 08:41 Dose 2.5 mg IH .STK-MED ONE Aripiprazole 7.5 mg 05/08/25 00:05 05/08/25 00:22 Aripiprazole 10 Mg Tablet PO 05/08/25 00:06 7.5 mg HS ONE Administration Calcium Carbonate/Glycine 750 mg 05/08/25 10:00 05/09/25 09:02 Calcium Carbonate 750 Mg 750 Mg Tab.Chew PO 06/07/25 09:59 750 mg BID MASON Administration Cephalexin HCl 500 mg 05/10/25 10:00 Cephalexin Mh500 Mg Capsule PO 06/09/25 09:59 QID MASON Chlorthalidone 25 mg 05/08/25 10:00 05/08/25 08:06 Chlorthalidone 25 Mg Tablet PO 06/07/25 09:59 25 mg DAILY MASON Administration Furosemide 40 mg 05/07/25 21:09 05/07/25 21:14 Furosemide 40 Mg/4 Ml Vial IV 05/07/25 21:10 40 mg STAT ONE Administration Furosemide Confirm 05/07/25 21:12 Furosemide 40 Mg/4 Ml Vial Administered 05/07/25 21:13 Dose 40 mg .ROUTE .STK-MED ONE Furosemide 60 mg 05/08/25 05:22 05/08/25 05:36 Furosemide 40 Mg/4 Ml Vial IV 05/08/25 05:23 60 mg STAT ONE Administration Furosemide 40 mg 05/10/25 18:45 Furosemide 40 Mg/4 Ml Vial IV 05/12/25 18:44 Q12H MASON Sodium Chloride 1,000 mls @ 999 mls/hr 05/07/25 21:10 05/07/25 21:13 Sodium Chloride 0.9% 1000 Ml IV 05/07/25 22:10 999 mls/hr .Q1H1M STA Administration Sodium Chloride Confirm 05/07/25 21:13 Sodium Chloride 0.9% 1000 Ml Administered 05/07/25 21:14 Dose 1,000 mls @ ud .ROUTE .STK-MED ONE Sodium Chloride 1,000 mls @ 999 mls/hr 05/08/25 05:23 05/08/25 05:37 Sodium Chloride 0.9% 1000 Ml IV 05/08/25 06:23 999 mls/hr .Q1H1M STA Administration Sodium Chloride 1,000 mls @ 100 mls/hr 05/08/25 07:00 05/08/25 16:41 Sodium Chloride 0.9% 1000 Ml IV 05/08/25 17:00 100 mls/hr .Q10H MASON Administration Vancomycin HCl 2 gm in 400 mls @ 200 mls/hr 05/08/25 10:00 05/09/25 03:24 Vancomycin 2 Gram/400 Ml Bag IV 06/07/25 09:59 200 mls/hr Q18H MASON Administration Vancomycin HCl 2 gm in 400 mls @ 200 mls/hr 05/10/25 06:00 05/10/25 05:04 Vancomycin 2 Gram/400 Ml Bag IV 06/09/25 05:59 200 mls/hr Q24H MASON Administration Metoprolol Succinate 50 mg 05/08/25 00:09 05/08/25 00:22 Metoprolol Succinate 25 Mg Xl Tab PO 05/08/25 00:10 50 mg STAT ONE Administration Non-Formulary Medication 1 each 05/08/25 08:19 05/08/25 09:09 Pharmacy Dose Request: Vancomycin 1 Each IV 05/08/25 08:20 1 each STAT STA Administration Lokelma 5 Gram 3 each 05/10/25 08:00 05/10/25 07:40 Packets PO 06/09/25 07:59 3 each 0800 MASON Administration Patiromer 16.8 gm 05/08/25 07:26 05/08/25 08:08 Patiromer Calcium Sorbitex 8.4 Gm Powd.Pack PO 05/08/25 07:27 16.8 gm STAT STA Administration Patiromer 25.2 gm 05/09/25 07:28 05/09/25 07:45 Patiromer Calcium Sorbitex 8.4 Gm Powd.Pack PO 05/09/25 07:29 25.2 gm STAT STA Administration Patiromer 25.2 gm 05/09/25 18:22 05/09/25 19:22 Patiromer Calcium Sorbitex 8.4 Gm Powd.Pack PO 05/09/25 18:23 25.2 gm STAT STA Administration Patiromer 8.4 gm 05/10/25 10:00 Patiromer Calcium Sorbitex 8.4 Gm Powd.Pack PO 06/09/25 09:59 DAILY MASON Pregabalin 25 mg 05/08/25 00:10 05/08/25 00:21 Pregabalin 25 Mg Capsule PO 05/08/25 00:11 25 mg BID ONE Administration Simvastatin 40 mg 05/08/25 00:11 05/08/25 00:30 Simvastatin 20 Mg Tablet PO 05/08/25 00:12 Not Given HS ONE Tramadol HCl 50 mg 05/08/25 05:18 05/08/25 05:37 Tramadol Hcl 50 Mg Tablet PO 06/07/25 09:59 50 mg BID PRN Administration PAIN Multi-Disciplinary Progress Notes: Multi-Disciplinary Progress Notes 05/10/25 10:07 Case Management Note by Em Clarke Addendum entered by Em Clarke 05/10/25 11:11: [facility] [employer] HAS ACCEPTED Original Note: REFERRAL EMAILED TO [facility] [employer] THEY WILL NEED NOTIFIED AT TIME OF DC AT [phone]. THEY WILL NEED FAXED THE DC INSTRUCTIONS, DC MED LIST AND DC SUMMARY [phone] Initialized on 05/10/25 10:07 - END OF NOTE Assessment/Plan (1) Hyperkalemia Current Visit: Yes Status: Acute Assessment & Plan: -K 5.9 -5.6 -5.1 - now within normal limits -Missed home Lokelma x 1 week due to diarrhea -Lasix given in ED and on admission -Nephrology recommended Veltassa 8.5 daily; Veltassa 25.2 given 05/09/25 -Lokelma brought in by family - will continue today at home dosing -Telemetry -Low-K diet -avoid nephrotoxins and potassium-sparing meds; insulin/dextrose PRN if worsening 05/11/25 -Lokelema at home dose resumed -Potassium reviewed at 5.1- WNL -continue tele -Nephrology following with recs for lokelma and IVF at 10ml/hr Code(s): E87.5 - HYPERKALEMIA (2) Acute kidney injury superimposed on CKD Current Visit: Yes Status: Acute Assessment & Plan: -Creatinine 1.29 baseline -1.75 (05/08) - 2.48 (05/09)- 2.54 basline around 1.7 - improving -Likely prerenal + diuretic effect after Lasix on admission -NS 100 -75 mL/hr -Chlorthalidone held -Monitor renal/lytes daily -Renally dose meds, avoid nephrotoxins -Nephrology re-consulted for further management 05/11: -Nephrology following with recs for IVF at 10ml/hr and lasix 40mg bid -Creat reviewed at 2.43 showing mild improvement -baseline around 1.7 -continue to hold nephrotoxic agents and renally dose all meds Code(s): N17.9 - ACUTE KIDNEY FAILURE, UNSPECIFIED; N18.9 - CHRONIC KIDNEY DISEASE, UNSPECIFIED Elevated BNP -likely volume overload/cardiorenal component -Echo pending -BNP reviewed and elevated -No history of CHF -Continue cautious diuresis per renal response- nephrology following -Daily weights, strict I/O, assess JVD, lung exam, peripheral edema -Avoid aggressive fluids unless clear evidence of hypovolemia (3) Cellulitis of left lower extremity Current Visit: Yes Status: Acute Assessment & Plan: -Failed doxycycline with GI intolerance -Culture sent- was cancelled -culture to be obtained with open area -Vancomycin started; improving clinically -transition to ceftriaxone IV - follow culture -Podiatry consulted - pt may need compression dressings -venous doppler ordered 05/11: -venous doppler negative for DVT -Podiatry consulted and unna boot applied -Continue ceftriaxone- follow culture - collected 05/10 Code(s): L03.116 - CELLULITIS OF LEFT LOWER LIMB (4) DM (diabetes mellitus) Current Visit: Yes Status: Acute Assessment & Plan: -A1c 7.36 -SSI/bolus with meals started/basal insulin; carb-consistent diet Code(s): E11.9 - TYPE 2 DIABETES MELLITUS WITHOUT COMPLICATIONS (5) Diarrhea Current Visit: Yes Status: Acute Assessment & Plan: -Likely antibiotic-associated -now resolved -Probiotics given -monitor; send C. diff only if returns Code(s): R19.7 - DIARRHEA, UNSPECIFIED (6) Hypocalcemia Current Visit: Yes Status: Acute Assessment & Plan: -Ca 8.1 - corrected Ca 8.8 -Tums started then stopped after improvement -Monitor with routine labs 05/11 -Calcium reviewed at 8.4 WNL Code(s): E83.51 - HYPOCALCEMIA (7) Bipolar 1 disorder Current Visit: Yes Status: Chronic Assessment & Plan: -Continue aripiprazole Code(s): F31.9 - BIPOLAR DISORDER, UNSPECIFIED (8) Hyperlipidemia Current Visit: Yes Status: Chronic Assessment & Plan: -Continue statin Code(s): E78.5 - HYPERLIPIDEMIA, UNSPECIFIED (9) Hypothyroidism Current Visit: Yes Status: Chronic Assessment & Plan: -Continue levothyroxine Code(s): E03.9 - HYPOTHYROIDISM, UNSPECIFIED (10) Sleep apnea, obstructive Current Visit: Yes Status: Chronic Assessment & Plan: -BMI >70 -CPAP nocturnally; petroleum ointment to nares for dryness -Diet counseling Code(s): G47.33 - OBSTRUCTIVE SLEEP APNEA (ADULT) (PEDIATRIC) (11) Morbid obesity with BMI of 70 and over, adult Current Visit: No Status: Chronic Code(s): E66.01 - MORBID (SEVERE) OBESITY DUE TO EXCESS CALORIES; Z68.45 - BODY MASS INDEX [BMI] 70 OR GREATER, ADULT (12) HTN (hypertension) Current Visit: Yes Status: Acute Assessment & Plan: -Stable; Amlodipine/ on hold -restart metoprolol VTE: Heparin PPI: Protonix Dispo: 1-3 days Code status: Full code Plan of care time spent greater than 35 mins Code(s): E87.5 - HYPERKALEMIA (2) Acute kidney injury superimposed on CKD Current Visit: Yes Status: Acute Code(s): N17.9 - ACUTE KIDNEY FAILURE, UNSPECIFIED; N18.9 - CHRONIC KIDNEY DISEASE, UNSPECIFIED (3) Cellulitis of left lower extremity Current Visit: Yes Status: Acute Code(s): L03.116 - CELLULITIS OF LEFT LOWER LIMB (4) DM (diabetes mellitus) Current Visit: Yes Status: Acute Code(s): E11.9 - TYPE 2 DIABETES MELLITUS WITHOUT COMPLICATIONS (5) Diarrhea Current Visit: Yes Status: Acute Code(s): R19.7 - DIARRHEA, UNSPECIFIED (6) Hypocalcemia Current Visit: Yes Status: Acute Code(s): E83.51 - HYPOCALCEMIA (7) Bipolar 1 disorder Current Visit: Yes Status: Chronic Code(s): F31.9 - BIPOLAR DISORDER, UNSPECIFIED (8) Hyperlipidemia Current Visit: Yes Status: Chronic Code(s): E78.5 - HYPERLIPIDEMIA, UNSPECIFIED (9) Hypothyroidism Current Visit: Yes Status: Chronic Code(s): E03.9 - HYPOTHYROIDISM, UNSPECIFIED (10) Sleep apnea, obstructive Current Visit: Yes Status: Chronic Code(s): G47.33 - OBSTRUCTIVE SLEEP APNEA (ADULT) (PEDIATRIC) (11) Morbid obesity with BMI of 70 and over, adult Current Visit: No Status: Chronic Code(s): E66.01 - MORBID (SEVERE) OBESITY DUE TO EXCESS CALORIES; Z68.45 - BODY MASS INDEX [BMI] 70 OR GREATER, ADULT (12) HTN (hypertension) Current Visit: Yes Status: Acute Code(s): I10 - ESSENTIAL (PRIMARY) HYPERTENSION (13) Elevated brain natriuretic peptide (BNP) level Current Visit: Yes Status: Acute Code(s): R79.89 - OTHER SPECIFIED ABNORMAL FINDINGS OF BLOOD CHEMISTRY
[2025-05-11] MEDS: PATIENT OWN MEDICATION PO SCH (08:18)
[2025-05-11] MEDS: Lasix 40 MG/4 ML IV SCH (09:12)
[2025-05-12 04:52] LABS: BASOPHIL % 1.2 % (0.1-1.2); Basophil (Absolute #) 0.06 x10^3/uL (0.01-0.08); Eosinophil (Absolute #) 0.35 x10^3/uL (0.04-0.36); Hematocrit 30.0 % (34.1-44.9); Hemoglobin 9.8 g/dL (11.2-15.7); IMMATURE GRAN # 0.02 x10^3u/L (0.001-0.031); IMMATURE GRAN % 0.4 % (0.001-0.429); Lymphocyte (Absolute #) 1.19 x10^3/uL (1.18-3.74); Mean Corpuscular Hemoglobin 31.6 pg (25.6-32.2); Mean Corpuscular Hgb Concent. 32.7 g/dL (32.2-35.5); Monocyte (Absolute #) 0.55 x10^3/uL (0.24-0.86); NUCLEATED RBC # 0.00 x10^3u/L (0.00-0.012); NUCLEATED RBC % 0.0 % (0.00-0.2); Platelet Count 219 x10^3/uL (182-369); Red Blood Count 3.10 x10^6/uL (3.93-5.22); White Blood Count 5.0 x10^3/uL (3.98-10.04)
[2025-05-12 05:10] LABS: Calcium 8.2 mg/dL (8.4-10.2); Carbon Dioxide 23.0 mmol/L (22-30); Creatinine 1 2.49 mg/dL (0.52-1.04); EST GLOMERULAR FILTRATION RATE 22.0 ML/MIN; Glucose 130.0 mg/dL (74-106); Potassium 4.9 mmol/L (3.5-5.1); SGOT/AST 55.0 U/L (14-36); SGPT/ALT 50.0 U/L (0-35); Total Protein 6.4 g/dL (6.3-8.2)
--- NOTE | 2025-05-12 05:36 | PCM.NOTE ---
Date and Time: 05/12/25 0532 Subjective Assessment: Ms. Quinteros is a 59-year-old female with ASHA, hyperlipidemia, hypertension, peripheral neuropathy, morbid obesity, bipolar disorder, type 2 diabetes, chronic kidney disease with recurrent hyperkalemia, and chronic left lower- extremity ulcer/cellulitis presented on 05/07/25 for recurrent hyperkalemia noted on outpatient labs (K 5.7). She had been off Lokelma for approximately one week due to loose stools shortly after starting doxycycline for her chronic LLE wound, which has shown minimal improvement. She denied systemic symptoms on arrival but reported decreased oral intake. Repeat labs on 05/08 demonstrated worsening hyperkalemia (K 5.9) and LEATHA on baseline CKD (Cr 1.75; baseline 1.29). Sodium 131 and calcium 8.1; calcium carbonate initiated. She received Veltassa and was started on IV fluids at 100 mL/hr. Doxycycline discontinued due to intolerance; wound culture collected; vancomycin initiated for LLE cellulitis. On 05/09, creatinine further increased to 2.48 with persistent hyperkalemia (K 5.6) despite Veltassa. Nephrology recommended Veltassa 8.5 daily; however, potassium jorge after prior dosing, so dose was increased to 25.2. IV fluids reduced to 75 mL/hr. Corrected calcium improved to 8.8 and calcium carbonate discontinued. Cellulitis improving clinically. A1c returned at 7.36. Diarrhea resolved. Reported mild blood-tinged nasal drainage likely from CPAP dryness; petroleum ointment ordered. 05/10/25: Met with patient bedside. Endorses continued LLE mild pain. On exam LLE noted wi th edema +2 pitting with erythema and open area on lateral calf region. Will attempt to obtain culture today. Podiatry consulted for compression wraps. Vanc changed to ceftriaxone until cultures back. Creat continues to increase and now at 2.54- will consult nephrology for further guidance. Potassium at 5.2- Lokelma has been resumed at home dosing (family brought in home med). Denies fever,cough, sob, cp, abdominal pain, GONZALEZ, dizziness, N/V/D. 05/11/25: No acute events documented overnight. The patient reports reduced bilateral lower-extremity pain. Venous Doppler ultrasound was negative for DVT. Podiatry evaluated the patient and applied Unna boots for management of chronic lower- extremity edema and to facilitate venous and lymphatic return. Nephrology continues to follow for persistent LEATHA. Recommendations include furosemide 40 mg BID for two days and reduction of IV fluids to 10 mL/hr. Serum creatinine demonstrates mild interval improvement, and prior hyperkalemia has resolved. Wound culture remains pending; ceftriaxone therapy was initiated on 05/10/25 and culture results will be trended. Echo has been ordered and is pending. 05/12/25: No overnight events. Wound culture with staph aureus- abx changed to Keflex. Creat remains elevated with nephrology following. Echo pending Objective Exam Wound Assessment: Skin/Wound Assessment Wound/Incision Assessment Start: 05/07/25 22:55 Text: Status: Active Freq: Q6H Protocol: Document 05/12/25 02:32 KACEY (Rec: 05/12/25 02:40 ADRURY [id number]) Wound/Incision Assessment Left Posterior Buttock Wound Assessment New Finding Wound Type Abrasion Drainage Amount Minimal Drainage Description Sanguineous Drainage Odor None/Absent General Appearance Open to air right lower leg Wound Assessment Shift Assessment Wound Type CELLULITIS Dressing Status Dry & Intact Comment FAM BOOTS C/D/I Left Lower Anterior Calf Wound Assessment Shift Assessment Wound Type CELLULITIS Dressing Status Dry & Intact Comment FAM BOOTS C/D/I Wound Photo Photo Taken No Objective Data Vital Signs: Vital Signs - 24 hr Temp Pulse Resp BP Pulse Ox 05/12/25 03:46 97.8 F 66 20 120/64 93 L 05/12/25 02:32 20 05/11/25 23:44 97.9 F 71 20 126/59 94 L 05/11/25 23:00 19 05/11/25 19:53 97.5 F 71 20 152/79 94 L 05/11/25 19:00 20 05/11/25 16:00 98.3 F 77 18 133/65 94 L 05/11/25 14:18 16 05/11/25 11:16 98.5 F 67 16 143/66 96 05/11/25 11:00 16 05/11/25 07:11 97.7 F 71 19 146/66 94 L 05/11/25 06:59 20 Pain Assessment - Last Documented Pain Intensity 0 Pain Scale Used FLACC Intake and Output: Intake & Output 05/09/25 05/10/25 05/11/2512/25 11:59 11:59 11:59 11:59 Intake Total 700 5745 4124 8495 Output Total 0164 2486 7533 7860 [facility] -[phone] Weight 227 kg Lab Results: Lab Results-Last 24 Hours 05/11/25 05/11/25 05/11/25 Range/Units 04:25 07:05 11:09 WBC (3.98-10.04) x10^3/uL RBC (3.93-5.22) x10^6/uL Hgb (11.2-15.7) g/dL Hct (34.1-44.9) % MCV (79.4-94.8) fL MCH (25.6-32.2) pg MCHC (32.2-35.5) g/dL RDW (11.7-14.4) % Plt Count (182-369) x10^3/uL MPV (9.4-12.3) fL Gran % (34.0-71.1) % Immature Gran % (Auto) (0.001-0.429) % Nucleat RBC Rel Count (0.00-0.2) % Eos # (Auto) (0.04-0.36) x10^3/uL Immature Gran # (Auto) (0.001-0.031) x10^3u/L Absolute Lymphs (auto) (1.18-3.74) x10^3/uL Absolute Monos (auto) (0.24-0.86) x10^3/uL Absolute Nucleated RBC (0.00-0.012) x10^3u/L Lymphocytes % (19.3-51.7) % Monocytes % (4.7-12.5) % Eosinophils % (0.7-5.8) % Basophils % (0.1-1.2) % Absolute Granulocytes (1.56-6.13) x10^3/uL Basophils # (0.01-0.08) x10^3/uL Sodium (135-145) mmol/L Potassium (3.5-5.1) mmol/L Chloride (98-107) mmol/L Carbon Dioxide (22-30) mmol/L Anion Gap (5-15) MEQ/L BUN (7-17) mg/dL Creatinine (0.52-1.04) mg/dL Estimated GFR ML/MIN Glucose (74-106) mg/dL POC Glucometer 130 H 103 (74 to 106) mg/dL Calcium (8.4-10.2) mg/dL Magnesium 1.9 (1.6-2.3) mg/dL Total Bilirubin (0.2-1.3) mg/dL AST (14-36) U/L ALT (0-35) U/L Alkaline Phosphatase (38-126) U/L Serum Total Protein (6.3-8.2) g/dL Albumin (3.5-5.0) g/dL 05/11/25 05/11/25 05/11/25 Range/Units 15:49 18:29 21:52 WBC (3.98-10.04) x10^3/uL RBC (3.93-5.22) x10^6/uL Hgb (11.2-15.7) g/dL Hct (34.1-44.9) % MCV (79.4-94.8) fL MCH (25.6-32.2) pg MCHC (32.2-35.5) g/dL RDW (11.7-14.4) % Plt Count (182-369) x10^3/uL MPV (9.4-12.3) fL Gran % (34.0-71.1) % Immature Gran % (Auto) (0.001-0.429) % Nucleat RBC Rel Count (0.00-0.2) % Eos # (Auto) (0.04-0.36) x10^3/uL Immature Gran # (Auto) (0.001-0.031) x10^3u/L Absolute Lymphs (auto) (1.18-3.74) x10^3/uL Absolute Monos (auto) (0.24-0.86) x10^3/uL Absolute Nucleated RBC (0.00-0.012) x10^3u/L Lymphocytes % (19.3-51.7) % Monocytes % (4.7-12.5) % Eosinophils % (0.7-5.8) % Basophils % (0.1-1.2) % Absolute Granulocytes (1.56-6.13) x10^3/uL Basophils # (0.01-0.08) x10^3/uL Sodium (135-145) mmol/L Potassium (3.5-5.1) mmol/L Chloride (98-107) mmol/L Carbon Dioxide (22-30) mmol/L Anion Gap (5-15) MEQ/L BUN (7-17) mg/dL Creatinine (0.52-1.04) mg/dL Estimated GFR ML/MIN Glucose (74-106) mg/dL POC Glucometer 119 H 149 H 77 (74 to 106) mg/dL Calcium (8.4-10.2) mg/dL Magnesium (1.6-2.3) mg/dL Total Bilirubin (0.2-1.3) mg/dL AST (14-36) U/L ALT (0-35) U/L Alkaline Phosphatase (38-126) U/L Serum Total Protein (6.3-8.2) g/dL Albumin (3.5-5.0) g/dL 05/12/25 05/12/25 05/12/25 Range/Units 04:10 04:10 04:10 WBC 5.0 (3.98-10.04) x10^3/uL RBC 3.10 L (3.93-5.22) x10^6/uL Hgb 9.8 L (11.2-15.7) g/dL Hct 30.0 L (34.1-44.9) % MCV 96.8 H (79.4-94.8) fL MCH 31.6 (25.6-32.2) pg MCHC 32.7 (32.2-35.5) g/dL RDW 13.6 (11.7-14.4) % Plt Count 219 (182-369) x10^3/uL MPV 10.4 (9.4-12.3) fL Gran % 56.2 (34.0-71.1) % Immature Gran % (Auto) 0.4 (0.001-0.429) % Nucleat RBC Rel Count 0.0 (0.00-0.2) % Eos # (Auto) 0.35 (0.04-0.36) x10^3/uL Immature Gran # (Auto) 0.02 (0.001-0.031) x10^3u/L Absolute Lymphs (auto) 1.19 (1.18-3.74) x10^3/uL Absolute Monos (auto) 0.55 (0.24-0.86) x10^3/uL Absolute Nucleated RBC 0.00 (0.00-0.012) x10^3u/L Lymphocytes % 24.0 (19.3-51.7) % Monocytes % 11.1 (4.7-12.5) % Eosinophils % 7.1 H (0.7-5.8) % Basophils % 1.2 (0.1-1.2) % Absolute Granulocytes 2.79 (1.56-6.13) x10^3/uL Basophils # 0.06 (0.01-0.08) x10^3/uL Sodium 135 (135-145) mmol/L Potassium 4.9 (3.5-5.1) mmol/L Chloride 106 (98-107) mmol/L Carbon Dioxide 23 (22-30) mmol/L Anion Gap 10.6 (5-15) MEQ/L BUN 56 H (7-17) mg/dL Creatinine 2.49 H (0.52-1.04) mg/dL Estimated GFR 22.0 ML/MIN Glucose 130 H (74-106) mg/dL POC Glucometer (74 to 106) mg/dL Calcium 8.2 L (8.4-10.2) mg/dL Magnesium 1.7 (1.6-2.3) mg/dL Total Bilirubin 0.30 (0.2-1.3) mg/dL AST 55 H (14-36) U/L ALT 50 H (0-35) U/L Alkaline Phosphatase 101 (38-126) U/L Serum Total Protein 6.4 (6.3-8.2) g/dL Albumin 3.1 L (3.5-5.0) g/dL Radiology Exams: Radiology Procedures Category Date Time Status ECHO W/2D AND DOPPLER [US] Routine Exams 05/11/25 07:14 Taken Renal Ultrasound [KIDNEY] [US] Routine Exams 05/12/25 08:00 Ordered VENOUS BILATERAL EXTREMITY [US] Stat Exams 05/10/25 08:37 Completed Medications: Medications Generic Name Dose Route Start Last Admin Trade Name Freq PRN Reason Stop Dose Admin Acetaminophen 1,000 mg 05/08/25 07:32 05/10/25 04:47 Acetaminophen 500 Mg Tablet PO 06/07/25 07:31 1,000 mg Q8H PRN PRN Administration PAIN, FEVER, HEADACHE Aripiprazole 7.5 mg 05/08/25 22:00 05/11/25 20:11 Aripiprazole 10 Mg Tablet PO 06/07/25 21:59 7.5 mg HS MASON Administration Aspirin 81 mg 05/08/25 10:00 05/11/25 10:00 Aspirin 81 Mg Tablet.Ec PO 06/07/25 09:59 81 mg DAILY MASON Administration Duloxetine HCl 60 mg 05/08/25 10:00 05/11/25 10:01 Duloxetine Hcl 30 Mg Cap PO 06/07/25 09:59 60 mg DAILY MASON Administration Furosemide 40 mg 05/10/25 20:00 05/11/25 20:11 Furosemide 40 Mg/4 Ml Vial IV 05/12/25 19:59 40 mg Q12H MASON Administration Heparin Sodium (Beef Lung) 5,000 unit 05/08/25 11:00 05/11/25 20:11 Heparin 5000 Units/0.5 Ml 5,000 Unit/0.5 Ml Syr SQ 06/07/25 10:59 5,000 unit BID MASON Administration Sodium Chloride 1,000 mls @ 10 mls/hr 05/09/25 07:30 05/12/25 05:25 Sodium Chloride 0.9% 1000 Ml IV 06/08/25 07:29 Not Given .Q24H MASON Ceftriaxone Sodium 1 gm in 100 mls @ 200 mls/hr 05/10/25 10:00 05/11/25 09:58 Rocephin 1 Gm / 100 Ml Nacl IV 06/09/25 09:59 200 mls/hr Q24H10 MASON Administration Insulin Glargine 25 unit 05/08/25 10:00 05/11/25 09:59 Insulin Glargine 1 Unit SQ 06/07/25 09:59 25 unit DAILY MASON Administration Insulin Human Lispro 15 unit 05/08/25 08:00 05/11/25 17:05 Insulin Lispro 1 Unit SQ 06/07/25 07:59 15 unit TIDWMEALS MASON Administration Insulin Human Lispro 0 unit 05/08/25 10:10 Insulin Lispro 1 Unit SQ 06/07/25 10:09 UD PRN HYPERGLYCEMIA Lactobacillus Acidophilus 1 tab 05/08/25 10:00 05/11/25 10:00 Lactobacillus Acidophilus 1 Tab Tablet PO 06/07/25 09:59 1 tab DAILY MASON Administration Levothyroxine Sodium 100 mcg 05/08/25 10:00 05/11/25 10:00 Levothyroxine Sodium 100 Mcg Tablet PO 06/07/25 09:59 100 mcg DAILY MASON Administration Levothyroxine Sodium 75 mcg 05/08/25 10:00 05/11/25 10:01 Levothyroxine Sodium 75 Mcg Tablet PO 06/07/25 09:59 75 mcg DAILY MASON Administration Loratadine 10 mg 05/08/25 10:00 05/11/25 10:01 Loratadine 10 Mg Tablet PO 06/07/25 09:59 10 mg DAILY MASON Administration Metoprolol Succinate 50 mg 05/10/25 10:00 05/11/25 20:11 Metoprolol Succinate 50 Mg Tablet.Sa PO 06/09/25 09:59 50 mg BID MASON Administration Pantoprazole Sodium 20 mg 05/08/25 11:00 05/11/25 10:01 Pantoprazole 20 Mg Tab PO 06/07/25 10:59 20 mg DAILY MASON Administration Patient Own Med: 1 each 05/10/25 18:48 05/11/25 08:18 Lokemla 5 Gm Pkt PO 06/09/25 07:59 1 each 0800 MASON Administration Pregabalin 25 mg 05/08/25 10:00 05/11/25 20:11 Pregabalin 25 Mg Capsule PO 06/07/25 09:59 25 mg TID MASON Administration Simvastatin 40 mg 05/08/25 22:00 05/10/25 21:44 Simvastatin 20 Mg Tablet PO 06/07/25 21:59 40 mg HS MASON Administration Tramadol HCl 50 mg 05/08/25 07:32 05/11/25 17:06 Tramadol Hcl 50 Mg Tablet PO 06/07/25 05:17 50 mg BID PRN PRN Administration PAIN Discontinued Medications Generic Name Dose Route Start Last Admin Trade Name Freq PRN Reason Stop Dose Admin Albuterol Sulfate 2.5 mg 05/09/25 11:00 05/10/25 18:26 Albuterol Sulfate 2.5 Mg/3 Ml Neb IH 06/08/25 10:59 2.5 mg QIDRT MASON Administration Albuterol Sulfate Confirm 05/09/25 08:40 Albuterol Sulfate 2.5 Mg/3 Ml Neb Administered 05/09/25 08:41 Dose 2.5 mg IH .STK-MED ONE Aripiprazole 7.5 mg 05/08/25 00:05 05/08/25 00:22 Aripiprazole 10 Mg Tablet PO 05/08/25 00:06 7.5 mg HS ONE Administration Calcium Carbonate/Glycine 750 mg 05/08/25 10:00 05/09/25 09:02 Calcium Carbonate 750 Mg 750 Mg Tab.Chew PO 06/07/25 09:59 750 mg BID MASON Administration Cephalexin HCl 500 mg 05/10/25 10:00 Cephalexin Mh500 Mg Capsule PO 06/09/25 09:59 QID MASON Chlorthalidone 25 mg 05/08/25 10:00 05/08/25 08:06 Chlorthalidone 25 Mg Tablet PO 06/07/25 09:59 25 mg DAILY MASON Administration Furosemide 40 mg 05/07/25 21:09 05/07/25 21:14 Furosemide 40 Mg/4 Ml Vial IV 05/07/25 21:10 40 mg STAT ONE Administration Furosemide Confirm 05/07/25 21:12 Furosemide 40 Mg/4 Ml Vial Administered 05/07/25 21:13 Dose 40 mg .ROUTE .STK-MED ONE Furosemide 60 mg 05/08/25 05:22 05/08/25 05:36 Furosemide 40 Mg/4 Ml Vial IV 05/08/25 05:23 60 mg STAT ONE Administration Furosemide 40 mg 05/10/25 18:45 05/11/25 09:12 Furosemide 40 Mg/4 Ml Vial IV 05/12/25 18:44 Not Given Q12H MASON Sodium Chloride 1,000 mls @ 999 mls/hr 05/07/25 21:10 05/07/25 21:13 Sodium Chloride 0.9% 1000 Ml IV 05/07/25 22:10 999 mls/hr .Q1H1M STA Administration Sodium Chloride Confirm 05/07/25 21:13 Sodium Chloride 0.9% 1000 Ml Administered 05/07/25 21:14 Dose 1,000 mls @ ud .ROUTE .STK-MED ONE Sodium Chloride 1,000 mls @ 999 mls/hr 05/08/25 05:23 05/08/25 05:37 Sodium Chloride 0.9% 1000 Ml IV 05/08/25 06:23 999 mls/hr .Q1H1M STA Administration Sodium Chloride 1,000 mls @ 100 mls/hr 05/08/25 07:00 05/08/25 16:41 Sodium Chloride 0.9% 1000 Ml IV 05/08/25 17:00 100 mls/hr .Q10H MASON Administration Vancomycin HCl 2 gm in 400 mls @ 200 mls/hr 05/08/25 10:00 05/09/25 03:24 Vancomycin 2 Gram/400 Ml Bag IV 06/07/25 09:59 200 mls/hr Q18H MASON Administration Vancomycin HCl 2 gm in 400 mls @ 200 mls/hr 05/10/25 06:00 05/10/25 05:04 Vancomycin 2 Gram/400 Ml Bag IV 06/09/25 05:59 200 mls/hr Q24H MASON Administration Metoprolol Succinate 50 mg 05/08/25 00:09 05/08/25 00:22 Metoprolol Succinate 25 Mg Xl Tab PO 05/08/25 00:10 50 mg STAT ONE Administration Non-Formulary Medication 1 each 05/08/25 08:19 05/08/25 09:09 Pharmacy Dose Request: Vancomycin 1 Each IV 05/08/25 08:20 1 each STAT STA Administration Lokelma 5 Gram 3 each 05/10/25 08:00 05/10/25 07:40 Packets PO 06/09/25 07:59 3 each 0800 MASON Administration Patiromer 16.8 gm 05/08/25 07:26 05/08/25 08:08 Patiromer Calcium Sorbitex 8.4 Gm Powd.Pack PO 05/08/25 07:27 16.8 gm STAT STA Administration Patiromer 25.2 gm 05/09/25 07:28 05/09/25 07:45 Patiromer Calcium Sorbitex 8.4 Gm Powd.Pack PO 05/09/25 07:29 25.2 gm STAT STA Administration Patiromer 25.2 gm 05/09/25 18:22 05/09/25 19:22 Patiromer Calcium Sorbitex 8.4 Gm Powd.Pack PO 05/09/25 18:23 25.2 gm STAT STA Administration Patiromer 8.4 gm 05/10/25 10:00 Patiromer Calcium Sorbitex 8.4 Gm Powd.Pack PO 06/09/25 09:59 DAILY MASON Pregabalin 25 mg 05/08/25 00:10 05/08/25 00:21 Pregabalin 25 Mg Capsule PO 05/08/25 00:11 25 mg BID ONE Administration Simvastatin 40 mg 05/08/25 00:11 05/08/25 00:30 Simvastatin 20 Mg Tablet PO 05/08/25 00:12 Not Given HS ONE Tramadol HCl 50 mg 05/08/25 05:18 05/08/25 05:37 Tramadol Hcl 50 Mg Tablet PO 06/07/25 09:59 50 mg BID PRN Administration PAIN Multi-Disciplinary Progress Notes: Multi-Disciplinary Progress Notes 05/11/25 09:35 Case Management Note by Alexus Rich PLANS TO RETURN HOME WITH DAUGHTER ON DISCHARGE. REFERRAL HAS BEEN MADE WITH [facility]. WILL NOTIFY THEM WHEN PATIENT IS BEING DC'D HOME. DENIES ANY OTHER NEEDS AT PRESENT TIME. DC PLANNING WILL CONT TO FOLLOW FOR ALL NEEDS. Initialized on 05/11/25 09:35 - END OF NOTE Assessment/Plan (1) Hyperkalemia Current Visit: Yes Status: Acute Assessment & Plan: -K 5.9 -5.6 -5.1 - now within normal limits -Missed home Lokelma x 1 week due to diarrhea -Lasix given in ED and on admission -Nephrology recommended Veltassa 8.5 daily; Veltassa 25.2 given 05/09/25 -Lokelma brought in by family - will continue today at home dosing -Telemetry -Low-K diet -avoid nephrotoxins and potassium-sparing meds; insulin/dextrose PRN if worsening 05/11/25 -Lokelema at home dose resumed -Potassium reviewed at 5.1- WNL -continue tele -Nephrology following with recs for lokelma and IVF at 10ml/hr 05/12: -Potassium reviewed at 4.9 -continue home lokelma Code(s): E87.5 - HYPERKALEMIA (2) Acute kidney injury superimposed on CKD Current Visit: Yes Status: Acute Assessment & Plan: -Creatinine 1.29 baseline -1.75 (05/08) - 2.48 (05/09)- 2.54 basline around 1.7 - improving -Likely prerenal + diuretic effect after Lasix on admission -NS 100 -75 mL/hr -Chlorthalidone held -Monitor renal/lytes daily -Renally dose meds, avoid nephrotoxins -Nephrology re-consulted for further management 05/11: -Nephrology following with recs for IVF at 10ml/hr and lasix 40mg bid -Creat reviewed at 2.43 showing mild improvement -baseline around 1.7 -continue to hold nephrotoxic agents and renally dose all meds 05/12: -Lasix 40mg bid x 1 more day per nephrology -Creat remains above baseline at 2.49 -Nephrology follow appreciate recs -Renal US scheduled for today Code(s): N17.9 - ACUTE KIDNEY FAILURE, UNSPECIFIED; N18.9 - CHRONIC KIDNEY DISEASE, UNSPECIFIED Elevated BNP -likely volume overload/cardiorenal component -Echo pending -BNP reviewed and elevated -No history of CHF -Continue cautious diuresis per renal response- nephrology following -Daily weights, strict I/O, assess JVD, lung exam, peripheral edema -Avoid aggressive fluids unless clear evidence of hypovolemia 05/12: -Echo results pending (3) Cellulitis of left lower extremity Current Visit: Yes Status: Acute Assessment & Plan: -Failed doxycycline with GI intolerance -Culture sent- was cancelled -culture to be obtained with open area -Vancomycin started; improving clinically -transition to ceftriaxone IV - follow culture -Podiatry consulted - pt may need compression dressings -venous doppler ordered 05/11: -venous doppler negative for DVT -Podiatry consulted and unna boot applied -Continue ceftriaxone- follow culture - collected 05/10 05/12: -Wound culture with staph aureus- sensitive to keflex- will transition to oral Code(s): L03.116 - CELLULITIS OF LEFT LOWER LIMB (4) DM (diabetes mellitus) Current Visit: Yes Status: Acute Assessment & Plan: -A1c 7.36 -SSI/bolus with meals started/basal insulin; carb-consistent diet Code(s): E11.9 - TYPE 2 DIABETES MELLITUS WITHOUT COMPLICATIONS (5) Diarrhea Current Visit: Yes Status: Acute Assessment & Plan: -Likely antibiotic-associated -now resolved -Probiotics given -monitor; send C. diff only if returns Code(s): R19.7 - DIARRHEA, UNSPECIFIED (6) Hypocalcemia Current Visit: Yes Status: Acute Assessment & Plan: -Ca 8.1 - corrected Ca 8.8 -Tums started then stopped after improvement -Monitor with routine labs 05/11 -Calcium reviewed at 8.4 WNL Code(s): E83.51 - HYPOCALCEMIA (7) Bipolar 1 disorder Current Visit: Yes Status: Chronic Assessment & Plan: -Continue aripiprazole Code(s): F31.9 - BIPOLAR DISORDER, UNSPECIFIED (8) Hyperlipidemia Current Visit: Yes Status: Chronic Assessment & Plan: -Continue statin Code(s): E78.5 - HYPERLIPIDEMIA, UNSPECIFIED (9) Hypothyroidism Current Visit: Yes Status: Chronic Assessment & Plan: -Continue levothyroxine Code(s): E03.9 - HYPOTHYROIDISM, UNSPECIFIED (10) Sleep apnea, obstructive Current Visit: Yes Status: Chronic Assessment & Plan: -BMI >70 -CPAP nocturnally; petroleum ointment to nares for dryness -Diet counseling Code(s): G47.33 - OBSTRUCTIVE SLEEP APNEA (ADULT) (PEDIATRIC) (11) Morbid obesity with BMI of 70 and over, adult Current Visit: No Status: Chronic Code(s): E66.01 - MORBID (SEVERE) OBESITY DUE TO EXCESS CALORIES; Z68.45 - BODY MASS INDEX [BMI] 70 OR GREATER, ADULT (12) HTN (hypertension) Current Visit: Yes Status: Acute Assessment & Plan: -Stable; Amlodipine/ on hold -restart metoprolol VTE: Heparin PPI: Protonix Dispo: 1-3 days Code status: Full code Plan of care time spent greater than 35 mins Code(s): E87.5 - HYPERKALEMIA (2) Acute kidney injury superimposed on CKD Current Visit: Yes Status: Acute Code(s): N17.9 - ACUTE KIDNEY FAILURE, UNSPECIFIED; N18.9 - CHRONIC KIDNEY DISEASE, UNSPECIFIED (3) Cellulitis of left lower extremity Current Visit: Yes Status: Acute Code(s): L03.116 - CELLULITIS OF LEFT LOWER LIMB (4) DM (diabetes mellitus) Current Visit: Yes Status: Acute Code(s): E11.9 - TYPE 2 DIABETES MELLITUS WITHOUT COMPLICATIONS (5) Diarrhea Current Visit: Yes Status: Acute Code(s): R19.7 - DIARRHEA, UNSPECIFIED (6) Hypocalcemia Current Visit: Yes Status: Acute Code(s): E83.51 - HYPOCALCEMIA (7) Bipolar 1 disorder Current Visit: Yes Status: Chronic Code(s): F31.9 - BIPOLAR DISORDER, UNSPECIFIED (8) Hyperlipidemia Current Visit: Yes Status: Chronic Code(s): E78.5 - HYPERLIPIDEMIA, UNSPECIFIED (9) Hypothyroidism Current Visit: Yes Status: Chronic Code(s): E03.9 - HYPOTHYROIDISM, UNSPECIFIED (10) Sleep apnea, obstructive Current Visit: Yes Status: Chronic Code(s): G47.33 - OBSTRUCTIVE SLEEP APNEA (ADULT) (PEDIATRIC) (11) Morbid obesity with BMI of 70 and over, adult Current Visit: No Status: Chronic Code(s): E66.01 - MORBID (SEVERE) OBESITY DUE TO EXCESS CALORIES; Z68.45 - BODY MASS INDEX [BMI] 70 OR GREATER, ADULT (12) HTN (hypertension) Current Visit: Yes Status: Acute Code(s): I10 - ESSENTIAL (PRIMARY) HYPER TENSION (13) Elevated brain natriuretic peptide (BNP) level Current Visit: Yes Status: Acute Code(s): R79.89 - OTHER SPECIFIED ABNORMAL FINDINGS OF BLOOD CHEMISTRY
--- NOTE | 2025-05-12 08:43 | CONS ---
REASON FOR CONSULTATION: 1) Hyperkalemia. 2) Acute kidney injury. HISTORY: The patient is a very pleasant 59-year-old lady who is well known to renal service. The patient has underlying multiple comorbidities including morbid obesity, diabetes, hypertension, chronic leg edema. The patient has tendency for high potassium. She was sent to the hospital after her routine labs at her primary medical doctor's showed high potassium. The patient had been on Lokelma 5 g daily but had not been taking it for 1 week prior to admission. Creatinine gradually has worsened to around 2.5 mg percent; baseline is around 2 mg percent. A renal consultation was called. PAST MEDICAL HISTORY: 1) Diabetes mellitus type 2. 2) Hypertension. 3) Chronic kidney disease stage 3B. 4) Morbid obesity. 5) Urge incontinence. 6) Hyperkalemia. 7) Dyslipidemia. PAST SURGICAL HISTORY: 1) Orthopedic surgery. 2) Hysterectomy. 3) Ganglion cyst removal from right wrist. HOME MEDICATIONS: Reviewed. In-hospital medications reviewed. ALLERGIES: Lisinopril causes cough. Penicillin causes rash but has tolerated ceftriaxone very well. FAMILY HISTORY: Positive for CKD but no polycystic kidney disease. SOCIAL HISTORY: No history of smoking or alcohol abuse. No illicit drug use. REVIEW OF SYSTEMS: No vomiting. No diarrhea. Dyspnea on exertion is present. Leg swelling is increasing. No dysuria, no hematuria. Has an external catheter. She is being treated for cellulitis. Appetite has been fair. Blood sugars have been under 200 in the hospital. Otherwise, usually she has uncontrolled diabetes. Not on nonsteroidals. No hypotension. Blood pressure is high. LAB DATA AND TESTS: Labs were reviewed. Recent creatinine 2.51. Potassium 5.1. Labs since admission were reviewed. PHYSICAL EXAMINATION: VITAL SIGNS: Reviewed with patient's RN. HEENT: Normocephalic, atraumatic. [place] conjunctivae. NECK: Supple. Short. CHEST: Decreased basilar breath sounds. CARDIOVASCULAR: S1, S2 normal. ABDOMEN: Soft, nontender. EXTREMITIES: 3+ edema bilaterally. SKIN: Venous stasis changes noted in the lower extremities with redness. NEUROLOGIC: Alert, awake, oriented x3. ASSESSMENT: 1) Acute kidney injury. Etiology of LEATHA most likely is because of hyperglycemia plus possibility of CRS arises. There is no hypotension, no fluid losses, not on any nephrotoxic medications at this time. We will discontinue IV fluids. We will start the patient on Lasix 4 mg IV b.i.d. 2) Fluid overload. Rule out any diastolic congestive heart failure. Start Lasix 40 mg IV b.i.d. 3) Hyperkalemia because of hyperglycemia plus RTA type 4. Start the patient on Lokelma versus Veltassa once a day. Both of them have similar profile. 4) Chronic kidney disease stage 3B progressing to stage 4. BUN and creatinine around 1.8 to 2 mg percent because of diabetes, hypertension, LEATHA as mentioned. 5) Cellulitis. Continue ceftriaxone. 6) Diabetes mellitus type 2. Continue strict glycemic control. Check hemoglobin A1c. We will check CPK levels to make sure that the patient is not having any muscle breakdown or rhabdomyolysis given the fact that she is relatively immobile, having tense edema. All questions answered.
--- NOTE | 2025-05-12 10:02 | PCM.DS ---
Discharge Summary Date of Admission: 05/08/25 09:57 Date of Discharge: 05/12/25 Admitting Physician: FADI HAMILTON MD Consults: Consults on Case 05/09/25 07:31 Consult Nephrology ROUTINE 05/10/25 09:39 Consult Podiatry ROUTINE Primary Care Provider: LUDA HERNANDEZ MD Allergies Allergies lisinopril Allergy (Intermediate, Verified 05/07/25 20:09) Cough Penicillins Allergy (Intermediate, Verified 05/07/25 20:09) Rash Hospital Summary - Hospital Course Hospital Course: Ms. Quinteros is a 59 year old female with a pmhx of chronic kidney disease with recurrent hyperkalemia, type 2 diabetes mellitus, hypertension, hyperlipidemia, morbid obesity (BMI >70), obstructive sleep apnea, hypothyroidism, peripheral neuropathy, and bipolar disorder who was admitted on 05/07/25 for evaluation and management of recurrent hyperkalemia and acute kidney injury. She had recently discontinued her potassium binder (Lokelma) for approximately one week due to diarrhea following the initiation of doxycycline for her chronic left lower-extremity wound, which had shown minimal improvement. On presentation, she was hemodynamically stable and afebrile. Laboratory evaluation revealed hyperkalemia (K 5.9), hyponatremia (Na 131), hypocalcemia (Ca 8.1), and acute kidney injury with a creatinine of 1.75 mg/dL (baseline 1.3). She received Veltassa and IV fluids, and calcium carbonate was initiated for mild hypocalcemia. Doxycycline was discontinued due to intolerance, and vancomycin was started empirically for presumed cellulitis of the left lower extremity. Over the next 48 hours, despite initial therapy, creatinine jorge to 2.54 , and hyperkalemia persisted (K 5.6). Nephrology was consulted and recommended escalation of Veltassa dosing and careful fluid management. Lokelma was subsequently resumed once available from home, leading to normalization of serum potassium. IV fluids were gradually weaned, and gentle diuresis was started with Lasix 40 mg BID, later transitioned to daily dosing. Infectious workup revealed Staphylococcus aureus from the left lower-extremity wound culture. Vancomycin was discontinued, and antibiotics were de-escalated to ceftriaxone, later transitioned to oral cephalexin (renally dosed) upon final culture results. Podiatry was consulted for wound management, and Unna boots were applied to address chronic venous stasis and edema. Venous Doppler ultrasound was negative for DVT. The wound improved clinically during hospitalization with decreased erythema, drainage, and pain. Her renal function stabilized near discharge with creatinine trending down to 2.49, and potassium normalized at 4.9. BNP was noted to be elevated, likely reflecting a cardiorenal component rather than primary heart failure. An echocardiogram was ordered but remained pending at discharge. Calcium levels normalized, and diarrhea resolved after discontinuation of doxycycline. On 05/12/25, her case was discussed with Dr. Rosas, who cleared her for discharge from a nephrology standpoint. She was clinically stable, tolerating diet, with improved lower-extremity wounds and resolved hyperkalemia. She was discharged home on Lasix 40 mg daily and cephalexin, with instructions for close outpatient follow-up with nephrology next week, pcp, podiatry, and infectious disease. Discharge Note New Diagnosis: Hyperkalemia, cellulitis, LEATHA New Medications:Cephalexin/lasix Follow Up: Nephrology, Podiatry, Primary Care, and Infectious Disease. Pending: Echocardiogram results to be reviewed in follow-up. Condition on discharge: Stable, ambulatory, and at baseline mentation. I spent 35 minutes [id number] with the patient on the day of discharge performing discharge exam, discussing hospital stay and discharge instructions with patient and caregivers, preparation of discharge records, prescriptions & referral forms and addressing any questions/concerns the patient had as documented above. - Vitals & Intake/Output Vital Signs: Vital Signs Temperature 97.9 F 05/12/25 07:16 Pulse Rate 65 05/12/25 07:16 Respiratory Rate 16 05/12/25 07:16 Blood Pressure 126/60 05/12/25 07:16 O2 Sat by Pulse Oximetry 99 05/12/25 07:16 Intake & Output: Intake & Output 05/09/25 05/10/25 05/11/25 05/12/25 11:59 11:59 11:59 11:59 Intake Total 700 2970 3183 1679 Output Total 1425 5610 2747 3103 Balance -725 -680 -1767 -1421 Weight 227 kg - Lab Result Diagrams: 05/12/25 04:10 05/12/25 04:10 Lab Results-Last 24 Hrs: Lab Results-Last 24 Hours 05/11/25 05/11/25 05/11/25 Range/Units 11:09 15:49 18:29 WBC (3.98-10.04) x10^3/uL RBC (3.93-5.22) x10^6/uL Hgb (11.2-15.7) g/dL Hct (34.1-44.9) % MCV (79.4-94.8) fL MCH (25.6-32.2) pg MCHC (32.2-35.5) g/dL RDW (11.7-14.4) % Plt Count (182-369) x10^3/uL MPV (9.4-12.3) fL Gran % (34.0-71.1) % Immature Gran % (Auto) (0.001-0.429) % Nucleat RBC Rel Count (0.00-0.2) % Eos # (Auto) (0.04-0.36) x10^3/uL Immature Gran # (Auto) (0.001-0.031) x10^3u/L Absolute Lymphs (auto) (1.18-3.74) x10^3/uL Absolute Monos (auto) (0.24-0.86) x10^3/uL Absolute Nucleated RBC (0.00-0.012) x10^3u/L Lymphocytes % (19.3-51.7) % Monocytes % (4.7-12.5) % Eosinophils % (0.7-5.8) % Basophils % (0.1-1.2) % Absolute Granulocytes (1.56-6.13) x10^3/uL Basophils # (0.01-0.08) x10^3/uL Sodium (135-145) mmol/L Potassium (3.5-5.1) mmol/L Chloride (98-107) mmol/L Carbon Dioxide (22-30) mmol/L Anion Gap (5-15) MEQ/L BUN (7-17) mg/dL Creatinine (0.52-1.04) mg/dL Estimated GFR ML/MIN Glucose (74-106) mg/dL POC Glucometer 103 119 H 149 H (74 to 106) mg/dL Calcium (8.4-10.2) mg/dL Magnesium (1.6-2.3) mg/dL Total Bilirubin (0.2-1.3) mg/dL AST (14-36) U/L ALT (0-35) U/L Alkaline Phosphatase (38-126) U/L Serum Total Protein (6.3-8.2) g/dL Albumin (3.5-5.0) g/dL 05/11/25 05/12/25 05/12/25 Range/Units 21:52 04:10 04:10 WBC 5.0 (3.98-10.04) x10^3/uL RBC 3.10 L (3.93-5.22) x10^6/uL Hgb 9.8 L (11.2-15.7) g/dL Hct 30.0 L (34.1-44.9) % MCV 96.8 H (79.4-94.8) fL MCH 31.6 (25.6-32.2) pg MCHC 32.7 (32.2-35.5) g/dL RDW 13.6 (11.7-14.4) % Plt Count 219 (182-369) x10^3/uL MPV 10.4 (9.4-12.3) fL Gran % 56.2 (34.0-71.1) % Immature Gran % (Auto) 0.4 (0.001-0.429) % Nucleat RBC Rel Count 0.0 (0.00-0.2) % Eos # (Auto) 0.35 (0.04-0.36) x10^3/uL Immature Gran # (Auto) 0.02 (0.001-0.031) x10^3u/L Absolute Lymphs (auto) 1.19 (1.18-3.74) x10^3/uL Absolute Monos (auto) 0.55 (0.24-0.86) x10^3/uL Absolute Nucleated RBC 0.00 (0.00-0.012) x10^3u/L Lymphocytes % 24.0 (19.3-51.7) % Monocytes % 11.1 (4.7-12.5) % Eosinophils % 7.1 H (0.7-5.8) % Basophils % 1.2 (0.1-1.2) % Absolute Granulocytes 2.79 (1.56-6.13) x10^3/uL Basophils # 0.06 (0.01-0.08) x10^3/uL Sodium (135-145) mmol/L Potassium (3.5-5.1) mmol/L Chloride (98-107) mmol/L Carbon Dioxide (22-30) mmol/L Anion Gap (5-15) MEQ/L BUN (7-17) mg/dL Creatinine (0.52-1.04) mg/dL Estimated GFR ML/MIN Glucose (74-106) mg/dL POC Glucometer 77 (74 to 106) mg/dL Calcium (8.4-10.2) mg/dL Magnesium 1.7 (1.6-2.3) mg/dL Total Bilirubin (0.2-1.3) mg/dL AST (14-36) U/L ALT (0-35) U/L Alkaline Phosphatase (38-126) U/L Serum Total Protein (6.3-8.2) g/dL Albumin (3.5-5.0) g/dL 05/12/25 05/12/25 Range/Units 04:10 07:03 WBC (3.98-10.04) x10^3/uL RBC (3.93-5.22) x10^6/uL Hgb (11.2-15.7) g/dL Hct (34.1-44.9) % MCV (79.4-94.8) fL MCH (25.6-32.2) pg MCHC (32.2-35.5) g/dL RDW (11.7-14.4) % Plt Count (182-369) x10^3/uL MPV (9.4-12.3) fL Gran % (34.0-71.1) % Immature Gran % (Auto) (0.001-0.429) % Nucleat RBC Rel Count (0.00-0.2) % Eos # (Auto) (0.04-0.36) x10^3/uL Immature Gran # (Auto) (0.001-0.031) x10^3u/L Absolute Lymphs (auto) (1.18-3.74) x10^3/uL Absolute Monos (auto) (0.24-0.86) x10^3/uL Absolute Nucleated RBC (0.00-0.012) x10^3u/L Lymphocytes % (19.3-51.7) % Monocytes % (4.7-12.5) % Eosinophils % (0.7-5.8) % Basophils % (0.1-1.2) % Absolute Granulocytes (1.56-6.13) x10^3/uL Basophils # (0.01-0.08) x10^3/uL Sodium 135 (135-145) mmol/L Potassium 4.9 (3.5-5.1) mmol/L Chloride 106 (98-107) mmol/L Carbon Dioxide 23 (22-30) mmol/L Anion Gap 10.6 (5-15) MEQ/L BUN 56 H (7-17) mg/dL Creatinine 2.49 H (0.52-1.04) mg/dL Estimated GFR 22.0 ML/MIN Glucose 130 H (74-106) mg/dL POC Glucometer 120 H (74 to 106) mg/dL Calcium 8.2 L (8.4-10.2) mg/dL Magnesium (1.6-2.3) mg/dL Total Bilirubin 0.30 (0.2-1.3) mg/dL AST 55 H (14-36) U/L ALT 50 H (0-35) U/L Alkaline Phosphatase 101 (38-126) U/L Serum Total Protein 6.4 (6.3-8.2) g/dL Albumin 3.1 L (3.5-5.0) g/dL Micro Results-Entire Visit: Microbiology 05/10/25 08:50 Wound Culture - Final Drainage - Left Lower Staphylococcus Aureus Accuchecks Date 05/12/25 Date 05/11/25 Date 05/11/25 Date 05/11/25 Time 07:16 Time 22:00 Time 16:09 Time 11:16 - Radiology Exams Ordered Rad Exams-Entire Visit: Radiology Procedures Category Date Time Status ECHO W/2D AND DOPPLER [US] Routine Exams 05/11/25 07:14 Taken Renal Ultrasound [KIDNEY] [US] Routine Exams 05/12/25 08:00 Ordered - Procedures and Test Procedures and Tests throughout Hospitalization: Therapy Orders & Screens 05/07/25 22:19 BiPap/CPAP ROUTINE Comment: as per home Diagnosis: high k 05/09/25 08:46 Respiratory Therapy Assessment DAILY Comment: Diagnosis: high k Discharge Exam General Appearance: no apparent distress Neurologic Exam: alert, oriented x 3, cooperative Eye Exam: PERRL Ears, Nose, Throat Exam: normal ENT inspection Neck Exam: normal inspection Respiratory Exam: normal breath sounds, lungs clear Cardiovascular Exam: regular rate/rhythm, normal heart sounds, other Gastrointestinal/Abdomen Exam: normal bowel sounds Pelvic Exam: deferred Rectal Exam: deferred Back Exam: normal inspection Extremity Exam: pedal edema, swelling, tenderness Skin Exam: warm, dry Wound Assessment: Skin/Wound Assessment Wound/Incision Assessment Start: 05/07/25 22:55 Text: Status: Active Freq: Q6H Protocol: Document 05/12/25 08:58 RB (Rec: 05/12/25 09:03 RB [id number]) Wound/Incision Assessment Left Posterior Buttock Wound Assessment New Finding Wound Type Abrasion Drainage Amount Minimal Drainage Description Sanguineous Drainage Odor None/Absent General Appearance Open to air Comment small area noted to buttock appears ot be from scooting, non pressure area right lower leg Wound Assessment Shift Assessment Wound Type CELLULITIS Dressing Status Dry & Intact Comment unna boots in place Left Lower Anterior Calf Wound Assessment Shift Assessment Wound Type CELLULITIS Dressing Status Dry & Intact Comment unna boots in place Wound Photo Photo Taken No Final Diagnosis/Problem List - Final Discharge Diagnosis/Problem (1) Hyperkalemia Current Visit: Yes Status: Acute Assessment & Plan: -Resolved -Continue home [facility] Code(s): E87.5 - HYPERKALEMIA (2) Acute kidney injury superimposed on CKD Current Visit: Yes Status: Acute Assessment & Plan: Multifactorial, likely prerenal from decreased intake and diuretic exposure. Creatinine improved from 2.54 -2.49 mg/dL at discharge. Continue Lasix 40 mg daily per nephrology; renally dose all medications; avoid nephrotoxins; monitor renal function and electrolytes with nephrology follow-up. Code(s): N17.9 - ACUTE KIDNEY FAILURE, UNSPECIFIED; N18.9 - CHRONIC KIDNEY DISEASE, UNSPECIFIED (3) Cellulitis of left lower extremity Current Visit: Yes Status: Acute Assessment & Plan: Improved with wound care and antibiotic therapy. Continue cephalexin 500 mg PO twice daily (renally dosed per pharmacy); maintain Unna boot and local wound care per podiatry; follow up with Infectious Disease and Podiatry for wound monitoring and to determine total antibiotic duration. Code(s): L03.116 - CELLULITIS OF LEFT LOWER LIMB (4) DM (diabetes mellitus) Current Visit: Yes Status: Acute Assessment & Plan: HbA1c 7.36%. Continue basal-bolus insulin regimen and carb-consistent diet; follow up with PCP for glycemic optimization. Code(s): E11.9 - TYPE 2 DIABETES MELLITUS WITHOUT COMPLICATIONS (5) Diarrhea Current Visit: Yes Status: Acute Assessment & Plan: resolved Code(s): R19.7 - DIARRHEA, UNSPECIFIED (6) Hypocalcemia Current Visit: Yes Status: Acute Assessment & Plan: resolved Code(s): E83.51 - HYPOCALCEMIA (7) Bipolar 1 disorder Current Visit: Yes Status: Chronic Assessment & Plan: continue home regimen Code(s): F31.9 - BIPOLAR DISORDER, UNSPECIFIED (8) Hyperlipidemia Current Visit: Yes Status: Chronic Assessment & Plan: resume home meds Code(s): E78.5 - HYPERLIPIDEMIA, UNSPECIFIED (9) Hypothyroidism Current Visit: Yes Status: Chronic Assessment & Plan: resume home meds Code(s): E03.9 - HYPOTHYROIDISM, UNSPECIFIED (10) Sleep apnea, obstructive Current Visit: Yes Status: Chronic Assessment & Plan: Continue CPAP Code(s): G47.33 - OBSTRUCTIVE SLEEP APNEA (ADULT) (PEDIATRIC) (11) Morbid obesity with BMI of 70 and over, adult Current Visit: No Status: Chronic Assessment & Plan: Chronic condition contributing to ASHA, venous stasis, and renal stress. Weight management counseling and multidisciplinary follow-up for long-term risk reduction. Code(s): E66.01 - MORBID (SEVERE) OBESITY DUE TO EXCESS CALORIES; Z68.45 - BODY MASS INDEX [BMI] 70 OR GREATER, ADULT (12) HTN (hypertension) Current Visit: Yes Status: Acute Assessment & Plan: Resume home meds Code(s): I10 - ESSENTIAL (PRIMARY) HYPERTENSION (13) Elevated brain natriuretic peptide (BNP) level Current Visit: Yes Status: Acute Assessment & Plan: No prior CHF history; likely secondary to renal dysfunction. Continue gentle diuresis with Lasix; monitor weights, edema, and dyspnea; review echocardiogram results when available. Code(s): R79.89 - OTHER SPECIFIED ABNORMAL FINDINGS OF BLOOD CHEMISTRY - Discharge Discharge Date: 05/12/25 Disposition: HOME HEALTH SERVICE Condition: Stable Prescriptions: New Lactobacillus Acidophilus [Acidophilus TABLET] 1 tab PO DAILY 30 Days #30 tablet Cephalexin Mh 500 mg [Keflex 500 mg] 500 mg PO Q12HT 7 Days #14 cap Furosemide [Lasix] 40 mg PO DAILY 14 Days #14 tablet Continue Levothyroxine Sodium 175 mcg PO DAILY Aspirin [Aspirin EC] 81 mg PO DAILY Multivitamin 1 each PO DAILY Aripiprazole [Abilify] 0.5 tab PO HS Loratadine 10 mg [Claritin 10 mg] 10 mg PO DAILY Pregabalin 25 mg [Lyrica 25 MG] 25 mg PO TID Metoprolol Succinate 25 mg Xl* [Toprol-Xl 25MG Tablets] 50 mg PO BID Insulin Aspart [Novolog] 15 units SQ TID Insulin Glargine,Hum.rec.anlog [Basaglar Kwikpen U-100] 25 mg SQ DAILY Duloxetine HCl 60 mg PO DAILY Sodium Zirconium Cyclosilicate [Lokelma] 5 gm PO DAILY Discontinued Amlodipine Besylate 2.5 mg PO DAILY Atorvastatin Calcium 40 mg PO HS Additional Instructions: [facility] [facility] HAS BEEN SET UP UP FOR YOU. THEY WILL CALL YOU TO ARRANGE A TIME TO SOME SEE YOU. THEIR PHONE NUMBER IS [phone] IF YOU NEED ANYTHING PRIOR TO THEM CONTACTING YOU. BLE dressings to be changed every Saturday, Saturday, Saturday by Home Healthcare nurse. Dressing orders: Cleanse BLE with hibiclens or sterile water (patient states she is sensitive to betadine), cover any open areas with adaptic dressing, apply UNNA Boot, wrap with kerlix, then wrap/secure with coban (moderate compression). Follow up with: GOPAL SANTOS DPM [ACTIVE STAFF, PODIATRY] MARRY ROSAS [CONSULTING PHYSICIAN, NEPHROLOGY] LUDA HERNANDEZ MD [Primary Care Provider, INTERNAL MEDICINE] - Call for Appointment
[2025-05-12] MEDS: PHARMACY RENAL DOSING MC ONE (10:26)
[2025-05-12 11:17] VITALS: BP 130/69; PULSE 76; RESP 16; TEMP 97.6; O2SAT 95
[2025-05-12] MEDS: KEFLEX 500 MG PO SCH (11:19)
--- NOTE | 2025-05-12 11:22 | XRAY ---
Indication: Elevated creatinine. Two-dimensional renal sonogram performed. Comparison: None Firearms Inspector notes limited sonogram due to patient body habitus. Both kidneys are normal in reniform shape with normal color perfusion. Right kidney measures 9.6 x 5.7 x 4.5 cm and left measures 12.2 x 7.9 x 6.1 cm. No focal solid/cystic renal mass or hydronephrosis. Markedly distended urinary bladder up to 782 cc is grossly unremarkable. Normal bilateral ureteral jets. Impression: 1. Limited renal sonogram due to patient body habitus. 2. Smaller right kidney either developmental versus sequela chronic inflammation/infection, or vascular in etiology. 3. Markedly distended urinary bladder. Rule out neurogenic bladder versus outlet obstruction. 4. Remaining renal sonogram grossly negative.
--- NOTE | 2025-05-13 08:16 | PCM.NOTE ---
Date and Time: 05/13/25813 Subjective Assessment: Doing well patient anticipated dc later todday Physical Exam - Narrative Narrative Physical Exam: Podiatry Physical Exam Objective Data Vital Signs: Vital Signs - 24 hr Temp Pulse Resp BP Pulse Ox 05/12/25 11:16 97.6 F 76 16 130/69 95 05/12/25 11:00 12 Pain Assessment - Last Documented Pain Intensity 0 Pain Scale Used FLACC Intake and Output: Intake & Output 05/10/25 05/11/25 05/12/25 05/13/25 11:59 11:59 11:59 11:59 Intake Total 2970 3183 2166 380 Output Total 3650 4950 3100 700 Balance -680 -1767 -934 -320 Weight 227 kg Lab Results: Lab Results-Last 24 Hours 05/12/25 Range/Units 11:01 POC Glucometer 129 H (74 to 106) mg/dL Radiology Exams: Radiology Procedures Category Date Time Status Renal Ultrasound [KIDNEY] [US] Routine Exams 05/12/25 08:00 Completed Medications: Medications Discontinued Medications Generic Name Dose Route Start Last Admin Trade Name Freq PRN Reason Stop Dose Admin Acetaminophen 1,000 mg 05/08/25 07:32 05/10/25 04:47 Acetaminophen 500 Mg Tablet PO 06/07/25 07:31 1,000 mg Q8H PRN PRN Administration PAIN, FEVER, HEADACHE Albuterol Sulfate 2.5 mg 05/09/25 11:00 05/10/25 18:26 Albuterol Sulfate 2.5 Mg/3 Ml Neb IH 06/08/25 10:59 2.5 mg QIDRT MASON Administration Albuterol Sulfate Confirm 05/09/25 08:40 Albuterol Sulfate 2.5 Mg/3 Ml Neb Administered 05/09/25 08:41 Dose 2.5 mg IH .STK-MED ONE Aripiprazole 7.5 mg 05/08/25 00:05 05/08/25 00:22 Aripiprazole 10 Mg Tablet PO 05/08/25 00:06 7.5 mg HS ONE Administration Aripiprazole 7.5 mg 05/08/25 22:00 05/11/25 20:11 Aripiprazole 10 Mg Tablet PO 06/07/25 21:59 7.5 mg HS MASON Administration Aspirin 81 mg 05/08/25 10:00 05/12/25 11:19 Aspirin 81 Mg Tablet.Ec PO 06/07/25 09:59 81 mg DAILY MASON Administration Calcium Carbonate/Glycine 750 mg 05/08/25 10:00 05/09/25 09:02 Calcium Carbonate 750 Mg 750 Mg Tab.Chew PO 06/07/25 09:59 750 mg BID MASON Administration Cephalexin HCl 500 mg 05/10/25 10:00 Cephalexin 500 Mg Capsule PO 06/09/25 09:59 QID MASON Cephalexin HCl 500 mg 05/12/25 10:00 05/12/25 11:19 Cephalexin Mh500 Mg Capsule PO 06/11/25 09:59 500 mg Q12HT MASON Administration Chlorthalidone 25 mg 05/08/25 10:00 05/08/25 08:06 Chlorthalidone 25 Mg Tablet PO 06/07/25 09:59 25 mg DAILY MASON Administration Duloxetine HCl 60 mg 05/08/25 10:00 05/12/25 11:19 Duloxetine Hcl 30 Mg Cap PO 06/07/25 09:59 60 mg DAILY MASON Administration Furosemide 40 mg 05/07/25 21:09 05/07/25 21:14 Furosemide 40 Mg/4 Ml Vial IV 05/07/25 21:10 40 mg STAT ONE Administration Furosemide Confirm 05/07/25 21:12 Furosemide 40 Mg/4 Ml Vial Administered 05/07/25 21:13 Dose 40 mg .ROUTE .STK-MED ONE Furosemide 60 mg 05/08/25 05:22 05/08/25 05:36 Furosemide 40 Mg/4 Ml Vial IV 05/08/25 05:23 60 mg STAT ONE Administration Furosemide 40 mg 05/10/25 18:45 05/11/25 09:12 Furosemide 40 Mg/4 Ml Vial IV 05/12/25 18:44 Not Given Q12H MASON Furosemide 40 mg 05/10/25 20:00 05/12/25 08:21 Furosemide 40 Mg/4 Ml Vial IV 05/12/25 19:59 40 mg Q12H MASON Administration Heparin Sodium (Beef Lung) 5,000 unit 05/08/25 11:00 05/12/25 11:18 Heparin 5000 Units/0.5 Ml 5,000 Unit/0.5 Ml Syr SQ 06/07/25 10:59 5,000 unit BID MASON Administration Sodium Chloride 1,000 mls @ 999 mls/hr 05/07/25 21:10 05/07/25 21:13 Sodium Chloride 0.9% 1000 Ml IV 05/07/25 22:10 999 mls/hr .Q1H1M STA Administration Sodium Chloride Confirm 05/07/25 21:13 Sodium Chloride 0.9% 1000 Ml Administered 05/07/25 21:14 Dose 1,000 mls @ ud .ROUTE .STK-MED ONE Sodium Chloride 1,000 mls @ 999 mls/hr 05/08/25 05:23 05/08/25 05:37 Sodium Chloride 0.9% 1000 Ml IV 05/08/25 06:23 999 mls/hr .Q1H1M STA Administration Sodium Chloride 1,000 mls @ 100 mls/hr 05/08/25 07:00 05/08/25 16:41 Sodium Chloride 0.9% 1000 Ml IV 05/08/25 17:00 100 mls/hr .Q10H MASON Administration Vancomycin HCl 2 gm in 400 mls @ 200 mls/hr 05/08/25 10:00 05/09/25 03:24 Vancomycin 2 Gram/400 Ml Bag IV 06/07/25 09:59 200 mls/hr Q18H MASON Administration Sodium Chloride 1,000 mls @ 10 mls/hr 05/09/25 07:30 05/12/25 05:25 Sodium Chloride 0.9% 1000 Ml IV 06/08/25 07:29 Not Given .Q24H MASON Vancomycin HCl 2 gm in 400 mls @ 200 mls/hr 05/10/25 06:00 05/10/25 05:04 Vancomycin 2 Gram/400 Ml Bag IV 06/09/25 05:59 200 mls/hr Q24H MASON Administration Ceftriaxone Sodium 1 gm in 100 mls @ 200 mls/hr 05/10/25 10:00 05/11/25 09:58 Rocephin 1 Gm / 100 Ml Nacl IV 06/09/25 09:59 200 mls/hr Q24H10 MASON Administration Sodium Chloride 250 mls @ 10 mls/hr 05/12/25 08:00 05/12/25 11:26 Sodium Chloride 0.9% 250 Ml IV 05/13/25 08:59 Not Given .Q24H MASON Insulin Glargine 25 unit 05/08/25 10:00 05/12/25 11:18 Insulin Glargine 1 Unit SQ 06/07/25 09:59 25 unit DAILY MASON Administration Insulin Human Lispro 15 unit 05/08/25 08:00 05/12/25 11:17 Insulin Lispro 1 Unit SQ 06/07/25 07:59 15 unit TIDWMEALS MASON Administration Insulin Human Lispro 0 unit 05/08/25 10:10 Insulin Lispro 1 Unit SQ 06/07/25 10:09 UD PRN HYPERGLYCEMIA Lactobacillus Acidophilus 1 tab 05/08/25 10:00 05/12/25 11:18 Lactobacillus Acidophilus 1 Tab Tablet PO 06/07/25 09:59 1 tab DAILY MASON Administration Levothyroxine Sodium 100 mcg 05/08/25 10:00 05/12/25 11:19 Levothyroxine Sodium 100 Mcg Tablet PO 06/07/25 09:59 100 mcg DAILY MASON Administration Levothyroxine Sodium 75 mcg 05/08/25 10:00 05/12/25 11:21 Levothyroxine Sodium 75 Mcg Tablet PO 06/07/25 09:59 75 mcg DAILY MASON Administration Loratadine 10 mg 05/08/25 10:00 05/12/25 11:20 Loratadine 10 Mg Tablet PO 06/07/25 09:59 10 mg DAILY MASON Administration Metoprolol Succinate 50 mg 05/08/25 00:09 05/08/25 00:22 Metoprolol Succinate 25 Mg Xl Tab PO 05/08/25 00:10 50 mg STAT ONE Administration Metoprolol Succinate 50 mg 05/10/25 10:00 05/12/25 11:20 Metoprolol Succinate 50 Mg Tablet.Sa PO 06/09/25 09:59 50 mg BID MASON Administration Non-Formulary Medication 1 each 05/08/25 08:19 05/08/25 09:09 Pharmacy Dose Request: Vancomycin 1 Each IV 05/08/25 08:20 1 each STAT STA Administration Non-Formulary Medication 1 each 05/12/25 07:13 05/12/25 10:26 Pharmacy Dosing Request MC 05/12/25 07:14 Not Given STAT ONE Pantoprazole Sodium 20 mg 05/08/25 11:00 05/12/25 11:20 Pantoprazole 20 Mg Tab PO 06/07/25 10:59 20 mg DAILY MASON Administration Lokelma 5 Gram 3 each 05/10/25 08:00 05/10/25 07:40 Packets PO 06/09/25 07:59 3 each 0800 MASON Administration Patient Own Med: 1 each 05/10/25 18:48 05/12/25 11:45 Lokemla 5 Gm Pkt PO 06/09/25 07:59 Not Given 0800 MASON Patiromer 16.8 gm 05/08/25 07:26 05/08/25 08:08 Patiromer Calcium Sorbitex 8.4 Gm Powd.Pack PO 05/08/25 07:27 16.8 gm STAT STA Administration Patiromer 25.2 gm 05/09/25 07:28 05/09/25 07:45 Patiromer Calcium Sorbitex 8.4 Gm Powd.Pack PO 05/09/25 07:29 25.2 gm STAT STA Administration Patiromer 25.2 gm 05/09/25 18:22 05/09/25 19:22 Patiromer Calcium Sorbitex 8.4 Gm Powd.Pack PO 05/09/25 18:23 25.2 gm STAT STA Administration Patiromer 8.4 gm 05/10/25 10:00 Patiromer Calcium Sorbitex 8.4 Gm Powd.Pack PO 06/09/25 09:59 DAILY MASON Pregabalin 25 mg 05/08/25 00:10 05/08/25 00:21 Pregabalin 25 Mg Capsule PO 05/08/25 00:11 25 mg BID ONE Administration Pregabalin 25 mg 05/08/25 10:00 05/12/25 11:20 Pregabalin 25 Mg Capsule PO 06/07/25 09:59 25 mg TID MASON Administration Simvastatin 40 mg 05/08/25 00:11 05/08/25 00:30 Simvastatin 20 Mg Tablet PO 05/08/25 00:12 Not Given HS ONE Simvastatin 40 mg 05/08/25 22:00 05/10/25 21:44 Simvastatin 20 Mg Tablet PO 06/07/25 21:59 40 mg HS MASON Administration Tramadol HCl 50 mg 05/08/25 05:18 05/08/25 05:37 Tramadol Hcl 50 Mg Tablet PO 06/07/25 09:59 50 mg BID PRN Administration PAIN Tramadol HCl 50 mg 05/08/25 07:32 05/11/25 17:06 Tramadol Hcl 50 Mg Tablet PO 06/07/25 05:17 50 mg BID PRN PRN Administration PAIN Multi-Disciplinary Progress Notes: Multi-Disciplinary Progress Notes 05/12/25 09:31 Case Management Note by Nikkie Brumfield S/W PATIENT. STILL PLANS TO RETURN HOME WITH DAUGHTER AND [employer] [facility]. DENIES ANY OTHER NEEDS. STATES DAUGHTER WILL ASSIST NEEDED. Initialized on 05/12/25 09:31 - END OF NOTE Assessment/Plan (1) Cellulitis of left lower extremity Status: Acute Assessment & Plan: doing well patient to continue with compression therapy outpatient withorders to be sent for changes MWF. Will follow up outpatient to decide if necessary to continue. Appointment set for 05.20.2025. 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
== END 2025-05-12 12:20 | disposition home health service (06) | DRG 641 ==
LOC: ED 19:39 → MED SURG 21:39 → OBSVTOIN 05-08 09:57
PROVIDERS: ADMIT Internal Medicine; ATTEND Internal Medicine
DX: E87.5 Hyperkalemia (principal); L03.116 Cellulitis of left lower limb; N17.9 Acute kidney failure, unspecified; Z68.45 Body mass index [BMI] 70 or greater, adult; I12.9 Hypertensive chronic kidney disease with stage 1 through stage 4 chronic kidney disease, or unspecified chronic kidney disease; E11.22 Type 2 diabetes mellitus with diabetic chronic kidney disease; N18.32 Chronic kidney disease, stage 3b; E11.65 Type 2 diabetes mellitus with hyperglycemia; E87.70 Fluid overload, unspecified; Z79.899 Other long term (current) drug therapy; R19.7 Diarrhea, unspecified; E83.51 Hypocalcemia; F31.9 Bipolar disorder, unspecified; E78.5 Hyperlipidemia, unspecified; E03.9 Hypothyroidism, unspecified; G47.33 Obstructive sleep apnea (adult) (pediatric); E66.01 Morbid (severe) obesity due to excess calories; G62.9 Polyneuropathy, unspecified
CPT/HCPCS: 36415; 76770; 80048; 80053; 81001; 82550; 82947; 83036; 83735; 83880; 84132; 85025; 85027; 87070; 87077; 87186; 93268; 93306; 93970; 94640; 94660; 94760; 96374; 99285; G0378; Q3014

== ENCOUNTER 2025-06-09 11:37 | Emergency (ER) | payer MEDICARE ==
--- NOTE | 2025-06-09 11:47 | ERPHSYRPT ---
- History of Present Illness Time Seen by Provider: 06/09/25 11:47 Historian: patient, EMS, old records Exam Limitations: no limitations Physician History: This is a morbidly obese 59-year-old white female patient who arrives to the emergency department paramedics with the complaint of chest pain that was substernal central and sharp and radiated directly into her back 2 days ago. This symptom completely resolved. However, she has felt weak since that time. She states that she feels just like she did approximately 1 month ago when she had significantly elevated potassium level. Patient states that she has had cardiac arrest twice. Approximately 6 months ago she had cardiac arrest secondary to elevated potassium level. A second episode occurred prior to that secondary to sleep apnea. I reviewed the admission and discharge note from our hospital dated 05/08/2025. Patient has seen a tap dancer in the past but she has never been diagnosed with coronary artery disease. She has seen Dr. Linette Martinez. The patient underwent an echocardiogram on 05/08/2025 at our facility here at [facility]. The cardiac ejection fraction was not able to be calculated. There was significant dilation of her left ventricle. Patient states that within the last week she had another echocardiogram that was performed at [facility]. On 05/10/2025 patient underwent a bilateral lower extremity venous Doppler which showed no evidence for DVT in either leg. Patient has a history of hypothyroidism, insulin-dependent diabetes, hypertension, depression and peripheral neuropathy. Timing/Duration: day(s) (2) Activities at Onset: none Quality: stabbing Location: substernal, central Chest Pain Radiation: back (Resolved on its own) Severity of Pain-Max: mild Severity of Pain-Current: none Modifying Factors: Improves With: nothing Associated Symptoms: weakness Prior Chest Pain/Cardiac Workup: echocardiography Nitro Today/Relief: no nitro taken today Aspirin Treatment Today: no aspirin today Allergies/Adverse Reactions: lisinopril Allergy (Intermediate, Verified 06/09/25 11:57) Cough Penicillins Allergy (Intermediate, Verified 06/09/25 11:57) Rash povidone-iodine [From Betadine] Allergy (Verified 06/09/25 11:57) Home Medications: Aripiprazole [Abilify] 0.5 tab PO HS 08/11/23 [History] Aspirin [Aspirin EC] 81 mg PO DAILY 08/11/23 [History] Levothyroxine Sodium 175 mcg PO DAILY 08/11/23 [History] Multivitamin 1 each PO DAILY 08/11/23 [History] Insulin Aspart [Novolog] 15 units SQ TID 04/19/25 [History] Insulin Glargine,Hum.rec.anlog [Basaglar Kwikpen U-100] 40 mg SQ DAILY 04/19/25 [History] Loratadine 10 mg [Claritin 10 mg] 10 mg PO DAILY 04/19/25 [History] Metoprolol Succinate 25 mg Xl* [Toprol-Xl 25MG Tablets] 50 mg PO BID 04/19/25 [History] Pregabalin 25 mg [Lyrica 25 MG] 25 mg PO TID 04/19/25 [History] Duloxetine HCl 60 mg PO DAILY 05/07/25 [History] Sodium Zirconium Cyclosilicate [Lokelma] 5 gm PO DAILY 05/07/25 [History] Amlodipine Besylate [Norvasc] 2.5 mg PO DAILY 06/09/25 [History] Atorvastatin Calcium 40 mg PO DAILY 06/09/25 [History] Semaglutide [Ozempic] 2 mg SQ WEEKLY 06/09/25 [History] terbinafine HCL [Terbinafine HCl] 250 mg PO DAILY 06/09/25 [History] Hx Tetanus, Diphtheria Vaccination/Date Given: (unknown) Hx Influenza Vaccination/Date Given: Yes Hx Pneumococcal Vaccination/Date Given: No Travel Risk - International Travel Have you traveled outside of the country in past 3 weeks: No - Emerging Infectious Disease Are you exhibiting symptoms associated with any current EIDs: No - Review of Systems Constitutional: Weakness Eyes: No Symptoms Ears, Nose, & Throat: No Symptoms Respiratory: No Symptoms Cardiac: No Symptoms Abdominal/Gastrointestinal: No Symptoms Genitourinary Symptoms: No Symptoms Musculoskeletal: No Symptoms Skin: No Symptoms Neurological: No Symptoms Psychological: No Symptoms Endocrine: No Symptoms Hematologic/Lymphatic: No Symptoms Immunological/Allergic: No Symptoms All Other Systems: Reviewed and Negative - Past Medical History Pertinent Past Medical History: Yes Neurological History: Peripheral Neuropathy ENT History: No Pertinent History Cardiac History: High Cholesterol, Hypertension Respiratory History: No Pertinent History Endocrine Medical History: Diabetes Type II, Hypothyroidism, Liver Disease Musculoskeletal History: Arthritis GI Medical History: Diverticulosis History: No Pertinent History Psycho-Social History: Depression Female Reproductive Disorders: Endometriosis - Past Surgical History Past Surgical History: Yes Neuro Surgical History: No Pertinent History Cardiac: No Pertinent History Respiratory: No Pertinent History Gastrointestinal: No Pertinent History Genitourinary: No Pertinent History Musculoskeletal: Orthopedic Surgery Female Surgical History: Hysterectomy Other Surgical History: ganglion cyst removal right wrist - Social History Smoking Status: Never smoker Exposure to second hand smoke: No Drug Use: none - Social Determinants of Health Will the patient participate in the screening: Yes Do you worry about a steady place to live?: No In the past 12 months,have you had to go without utilities?: No Transportation Issues: No Has anyone in your support network made you feel unsafe?: No Have you or anyone in your house had to go w/o enough food: No - Nursing Vital Signs Nursing Vital Signs: Initial Vital Signs Temperature 96.0 F 06/09/25 11:40 Pulse Rate 69 06/09/25 11:40 Respiratory Rate 25 H 06/09/25 11:40 Blood Pressure 177/98 06/09/25 11:40 O2 Sat by Pulse Oximetry 100 06/09/25 11:40 Pain Scale Pain Intensity 4 - Physical Exam General Appearance: no apparent distress, alert, anxiety, obese Eye Exam: PERRL/EOMI, eyes nml inspection Ears, Nose, Throat Exam: normal ENT inspection, moist mucous membranes Neck Exam: normal inspection, non-tender, supple, full range of motion Respiratory Exam: normal breath sounds, lungs clear, airway intact, No chest tenderness, No respiratory distress Cardiovascular Exam: regular rate/rhythm, normal heart sounds, normal peripheral pulses Gastrointestinal/Abdomen Exam: soft, normal bowel sounds, No tenderness Pelvic Exam: not done Rectal Exam: not done Back Exam: normal inspection, normal range of motion, No CVA tenderness, No vertebral tenderness Extremity Exam: normal inspection, normal range of motion, pelvis stable Neurologic Exam: alert, oriented x 3, cooperative, sports internship II-XII nml as tested Skin Exam: normal color, warm, dry Lymphatic Exam: No adenopathy SpO2 Interpretation: normal O2 Delivery: Room Air - Course Nursing assessment & vital signs reviewed: Yes EKG Interpreted by Me: RATE (70), Sinus Rhythm, Left [place] Deviation, NORMAL INTERVALS, NORMAL QRS, Other (QTc is 470. No acute ischemia on this twelve-lead EKG. No significant difference when compared to similar twelve-lead EKG on 05/13/2025.) Ordered Tests: Active Orders 24 hr Category Date Time Status Retread Builder STAT Care 06/09/25 11:53 Active EKG-ER Only STAT Care 06/09/25 11:52 Completed IV Insertion STAT Care 06/09/25 11:52 Active Pulse Oximetry (ED) STAT Care 06/09/25 11:52 Active CHEST 1 VIEW (PORTABLE) Stat Exams 06/09/25 11:53 Completed CBC W DIFF Stat Lab 06/09/25 12:10 Completed Hepatic Function Panel Stat Lab 06/09/25 12:10 Completed MAGNESIUM Stat Lab 06/09/25 12:10 Completed NT PRO BNPII Stat Lab 06/09/25 12:10 Completed TROPONIN Q4H Lab 06/09/25 16:00 Ordered TROPONIN Q4H Lab 06/09/25 20:00 Ordered Medication Summary Discontinued Medications Generic Name Dose Route Start Last Admin Trade Name Freq PRN Reason Stop Dose Admin Aspirin 324 mg 06/09/25 11:52 06/09/25 12:29 Aspirin 81 Mg Tab.Chew PO 06/09/25 11:53 Not Given STAT ONE Calcium Gluconate 1,000 mg 06/09/25 14:23 06/09/25 14:35 Calcium Gluconate 1000 Mg/10 Ml Vial IV 06/09/25 14:24 1,000 mg STAT ONE Administration Calcium Gluconate Confirm 06/09/25 14:28 Calcium Gluconate 1000 Mg/10 Ml Vial Administered 06/09/25 14:29 Dose 1,000 mg IV .STK-MED ONE Furosemide 20 mg 06/09/25 14:23 06/09/25 14:35 Furosemide 20 Mg/Vial IV 06/09/25 14:24 20 mg STAT ONE Administration Furosemide Confirm 06/09/25 14:28 Furosemide 20 Mg/Vial Administered 06/09/25 14:29 Dose 20 mg .ROUTE .STK-MED ONE Sodium Chloride 500 mls @ 500 mls/hr 06/09/25 14:25 06/09/25 15:35 Sodium Chloride 0.9% 500 Ml IV 06/09/25 15:24 Infused .Q1H ONE Infusion Sodium Chloride Confirm 06/09/25 14:28 Sodium Chloride 0.9% 500 Ml Administered 06/09/25 14:29 Dose 500 mls @ ud IV .STK-MED ONE Labetalol HCl 10 mg 06/09/25 15:19 Labetalol Hcl 20 Mg/4 Ml Disp.Syringe IV 06/09/25 15:20 STAT ONE Lab/Rad Data: Laboratory Result Diagrams 06/09/25 12:10 06/09/25 12:10 Laboratory Results 06/09/25 06/09/25 06/09/25 Range/Units 12:10 12:10 12:10 WBC 7.0 (3.98-10.04) x10^3/uL RBC 3.43 L (3.93-5.22) x10^6/uL Hgb 10.7 L (11.2-15.7) g/dL Hct 33.0 L (34.1-44.9) % MCV 96.2 H (79.4-94.8) fL MCH 31.2 (25.6-32.2) pg MCHC 32.4 (32.2-35.5) g/dL RDW 13.0 (11.7-14.4) % Plt Count 216 (182-369) x10^3/uL MPV 10.0 (9.4-12.3) fL Gran % 63.0 (34.0-71.1) % Immature Gran % (Auto) 0.6 H (0.001-0.429) % Nucleat RBC Rel Count 0.0 (0.00-0.2) % Eos # (Auto) 0.31 (0.04-0.36) x10^3/uL Immature Gran # (Auto) 0.04 H (0.001-0.031) x10^3u/L Absolute Lymphs (auto) 1.47 (1.18-3.74) x10^3/uL Absolute Monos (auto) 0.70 (0.24-0.86) x10^3/uL Absolute Nucleated RBC 0.00 (0.00-0.012) x10^3u/L Lymphocytes % 21.1 (19.3-51.7) % Monocytes % 10.0 (4.7-12.5) % Eosinophils % 4.4 (0.7-5.8) % Basophils % 0.9 (0.1-1.2) % Absolute Granulocytes 4.39 (1.56-6.13) x10^3/uL Basophils # 0.06 (0.01-0.08) x10^3/uL Sodium Direct 136 L (138-146) mmol/L Potassium 5.5 H (3.5-4.9) mmol/L Chloride 105 (98-109) mmol/L Carbon Dioxide 25 (24-29) mmol/L Venous BUN 54 H (8-26) mg/dL Creatinine 2.4 H (0.6-1.3) mg/dL Glucose 227 H (70-105) mg/dL Ionized Calcium 1.18 (1.12-1.32) mmol/L Magnesium Not Reportable Total Bilirubin Not Reportable Direct Bilirubin Not Reportable AST Not Reportable ALT Not Reportable Alkaline Phosphatase Not Reportable Troponin I High Sens 5.50 (<2.9-14) ng/mL NT-Pro-B Natriuret Pep (<300) pg/mL Serum Total Protein Not Reportable Albumin Not Reportable - Progress Progress: improved, re-examined Air Movement: good Progress Note: 06/09/25 13:21 My medical decision making and the assignment of moderate to high complexity of this patient's medical issue today is based on review of the patient's past medical history, review the patient's medication list, review the patient drug allergy list, history present illness and physical findings on examination. The workup in this patient includes placement of intravenous line, twelve-lead EKG, CBC, CMP, magnesium level, chest x-ray, troponin level, BNP level. Differential diagnosis includes but is not limited to pulmonary infiltrate, CHF exacerbation, COPD exacerbation, electrolyte abnormalities, myocardial infarction, arrhythmia I interpreted the preliminary chest x-ray report in this patient. I see cardiomegaly but no other acute, emergent medical process The radiologist interpreted the final chest x-ray report. The report states accentuated lung vascular markings likely secondary to lung congestion. 06/09/25 15:40 I interpreted the patient's laboratory data results. Based on laboratory data results, the patient has a potassium of 5.5 and normal magnesium level. Patient has chronic renal disease/failure and her BUN/creatinine is in the typical range for her. Her troponin level is normal and she does not have any acute findings on her twelve-lead EKG. Patient has no chest pain. She did have elevated high blood pressure during most of her stay here. I had ordered labetalol. However the next reading was 160/90 and we decided to hold off on that medication. Her BNP level is elevated. I did provide the patient with intravenous Lasix, 500 mL of normal saline and calcium gluconate intravenously. The patient has not been using her Lasix. 06/09/25 15:42 Patient will be instructed to take Lasix for the next 48 hours. She will also call her primary care provider tomorrow, 06/10/2025 to obtain further instructions about her medications. Blood Culture(s) Obtained: No Antibiotics given: No Counseled pt/family regarding: lab results, diagnosis, need for follow-up, rad results - Departure Departure Disposition: Home Clinical Impression: Hyperkalemia, Chronic renal failure, CHF (congestive heart failure) Condition: Stable Critical Care Time: No Referrals: LUDA HERNANDEZ MD [Primary Care Provider, INTERNAL MEDICINE] - Follow up/PCP as directed Instructions: Heart Failure Additional Instructions: Increase your Lasix to 40 mg twice a day for 2 days only. Call your primary care provider tomorrow, 06/10/2025, to make arrangements for follow-up appointment and to discuss your medication regimen. Follow-up at the [facility] lab the morning of 06/11/2025 to obtain lab draw. Call your primary care provider later in the morning to find out the results of those labs.
[2025-06-09 11:55] VITALS: TEMP 96
[2025-06-09 12:14] LABS: BASOPHIL % 0.9 % (0.1-1.2); Basophil (Absolute #) 0.06 x10^3/uL (0.01-0.08); Eosinophil (Absolute #) 0.31 x10^3/uL (0.04-0.36); Hematocrit 33.0 % (34.1-44.9); Hemoglobin 10.7 g/dL (11.2-15.7); IMMATURE GRAN # 0.04 x10^3u/L (0.001-0.031); IMMATURE GRAN % 0.6 % (0.001-0.429); Lymphocyte (Absolute #) 1.47 x10^3/uL (1.18-3.74); Mean Corpuscular Hemoglobin 31.2 pg (25.6-32.2); Mean Corpuscular Hgb Concent. 32.4 g/dL (32.2-35.5); Monocyte (Absolute #) 0.70 x10^3/uL (0.24-0.86); NUCLEATED RBC # 0.00 x10^3u/L (0.00-0.012); NUCLEATED RBC % 0.0 % (0.00-0.2); Platelet Count 216 x10^3/uL (182-369); Red Blood Count 3.43 x10^6/uL (3.93-5.22); White Blood Count 7.0 x10^3/uL (3.98-10.04)
[2025-06-09] MEDS: BABY ASPIRIN 81 MG CHEW PO ONE (12:29)
--- NOTE | 2025-06-09 12:50 | XRAY ---
CLINICAL HISTORY: Chest pain COMPARISON: No prior studies available for comparison. TECHNIQUE: X-ray images of the chest were obtained in AP projection. FINDINGS: Pulmonary Parenchyma: Accentuated lung vascular markings are likely secondary to lung congestion. The lungs are clear bilaterally. No evidence of consolidation, collapse, or focal opacities. No pulmonary nodules identified. Faint opacification of the left costo-diaphragmatic recess is likely projectional. There is no evidence of definite pleural effusion or pleural thickening. Heart and Mediastinum: The heart size is enlarged. There is no mediastinal widening or masses. No hilar or mediastinal lymphadenopathy. Bony Thorax: Bony thorax appears intact, without fractures or deformities. Soft Tissues: Soft tissues overlying the chest wall are unremarkable. IMPRESSION: 1. Cardiomegaly. 2. Accentuated lung vascular markings, likely secondary to lung congestion. 3. Clinical correlation is recommended. Electronically Signed by: Benjamin Morrow MD. (06/09/2025 12:49:49 EST)
[2025-06-09 13:09] LABS: ISTAT BUN 54 mg/dL (8-26); ISTAT CL 105 mmol/L (98-109); ISTAT CO2 25 mmol/L (24-29); ISTAT CREA 2.4 mg/dL (0.6-1.3); ISTAT GLUC 227 mg/dL (70-105); ISTAT NA 136 mmol/L (138-146); ISTAT iCA 1.18 mmol/L (1.12-1.32)
[2025-06-09 13:11] LABS: ISTAT K 5.5 mmol/L (3.5-4.9)
[2025-06-09] MEDS ORDERED: Lasix 20 MG/2 ML ONE ×2 (14:28→15:59)
[2025-06-09] MEDS ORDERED: Calcium Gluconate 10% 1000 MG IV ONE (14:28)
[2025-06-09] MEDS: Calcium Gluconate 10% 1000 MG IV ONE (14:35)
[2025-06-09] MEDS: Lasix 20 MG/2 ML IV ONE ×2 (14:35→16:00)
[2025-06-09] MEDS: TRANDATE 20 MG/4 ML SYRINGE IV ONE (16:00)
[2025-06-09 16:02] VITALS: BP 178/90; PULSE 72; RESP 23; O2SAT 97
== END 2025-06-09 16:20 | disposition home or self-care (01) ==
LOC: ED 11:37
DX: E87.5 Hyperkalemia (principal); I13.0 Hypertensive heart and chronic kidney disease with heart failure and stage 1 through stage 4 chronic kidney disease, or unspecified chronic kidney disease; E11.22 Type 2 diabetes mellitus with diabetic chronic kidney disease; N18.9 Chronic kidney disease, unspecified; I50.9 Heart failure, unspecified; R79.89 Other specified abnormal findings of blood chemistry; R53.1 Weakness; E11.42 Type 2 diabetes mellitus with diabetic polyneuropathy; Z79.4 Long term (current) use of insulin; Z79.85 Long-term (current) use of injectable non-insulin antidiabetic drugs; Z79.899 Other long term (current) drug therapy